=== PATIENT | female | born 1965 | race Caucasian/White ===

== ENCOUNTER → 2016-03-15 | Outpatient (REF) | payer BC, OTHER ==
[~2016-03-15] MED LIST: ASPI81TA45 OR; MAALOX PO; MYLANTA PO; PRIL40CA OR; VARE1TA OR
== END | disposition home or self-care (01) ==
LOC: M WUC 18:37
PROVIDERS: ATTEND Physician Assistant
DX: R30.0 Dysuria (principal)

== ENCOUNTER → 2016-03-21 | Outpatient (CLI) | payer BC, OTHER ==
--- NOTE | 2016-03-21 19:10 | REP ---
Clinical: Dyspnea . Comparison: 01/08/2016 . Technique: PA and lateral. Findings: The mediastinum and cardiac silhouette are normal. The lung thornton are clear and without acute consolidation, effusion, or pneumothorax. The skeletal structures are intact and normal. Impression: 1. No acute cardiopulmonary process. Signed by Eligio Cook MD 03/21/2016 07:02 P
== END | disposition home or self-care (01) ==
LOC: M WUC 18:17
PROVIDERS: ATTEND Physician Assistant
DX: R07.1 Chest pain on breathing (principal)

== ENCOUNTER → 2016-04-10 | Outpatient (CLI) | payer BC ==
[~2016-04-10] MED LIST changes: +ISOVUE-370 76% 100ML VIAL (Q9967) As Ordered ONE
--- NOTE | 2016-04-11 04:21 | REP ---
Clinical: Palpable mass. Technique: Real time perry scale and color evaluation using linear high frequency transducer. Findings: Directed ultrasound examination of the left anterior thigh overlying the palpable mass demonstrates an ovoid echogenic solid structure measuring 1.4 x 1.0 x 0.5 cm without vascularity. No associated fluid or further abnormality identified. Impression: Ovoid echogenic mass suggesting lipoma by ultrasound evaluation. Signed by Eligio Cook MD 04/11/2016 04:13 A
--- NOTE | 2016-04-11 04:58 | REP ---
Clinical: Follow-up pulmonary nodule. Technique: Axial contrast enhanced images from the thoracic inlet to the upper abdomen using 100 ml Isovue 370 intravenous contrast material. Comparison: Chest CT dated 09/05/2015, 03/21/2015. Abdominal CT dated 12/12/2014. Findings: A 4 mm noncalcified nodule identified in the periphery of the right lower lobe is again identified and unchanged as identified on lung bases of abdominal CT dated 12/12/2014. Finding likely represent small area of scarring and less likely active pathology. Remainder of lung thornton are relatively symmetric and well-aerated. No further consolidation nodule or mass lesion is appreciated. Mild bronchiectasis is suggested. No pleural effusion/reaction or pneumothorax. No significant hilar or mediastinal adenopathy. Mediastinum demonstrates normal heart/pericardium and thoracic aorta. Surrounding musculoskeletal structures are intact without focal osseous abnormality. Impression: 1. Stable 4 mm nodular density in the right lower lobe unchanged when compared to findings on abdominal CT dated 12/12/2014. Consider annual screening. 2. Mild chronic bronchiectasis. 3. No further or acute mediastinal or pleuroparenchymal process appreciated. Signed by Eligio Cook MD 04/11/2016 04:50 A
== END | disposition home or self-care (01) ==
LOC: M RAD 17:29
PROVIDERS: ATTEND Family Medicine
DX: R22.42 Localized swelling, mass and lump, left lower limb (principal); R91.1 Solitary pulmonary nodule; J47.9 Bronchiectasis, uncomplicated
CPT/HCPCS: 71260; 76882; Q9967

== ENCOUNTER → 2016-04-13 | Outpatient (REF) | payer BC ==
[~2016-04-13] MED LIST changes: -ISOVUE-370 76% 100ML VIAL (Q9967) As Ordered ONE
== END | disposition home or self-care (01) ==
LOC: M LAB REF 09:52
PROVIDERS: ATTEND Physician Assistant
DX: R30.0 Dysuria (principal)

== ENCOUNTER → 2016-04-15 | Outpatient (REF) | payer OTHER | END | disposition home or self-care (01) | LOC: M SFHCLERA 18:04 | PROVIDERS: ATTEND Nurse Practitioner Family | DX: R10.30 Lower abdominal pain, unspecified (principal) ==

== ENCOUNTER → 2016-04-17 | Outpatient (REF) | payer OTHER | END | disposition home or self-care (01) | LOC: M SFHCPLAZ 17:09 | PROVIDERS: ATTEND Family Medicine | DX: N39.0 Urinary tract infection, site not specified (principal) ==

== ENCOUNTER → 2016-04-28 | Outpatient (CLI) | payer BC, OTHER ==
[~2016-04-28] MED LIST changes: +ISOVUE-370 76% 100ML VIAL (Q9967) As Ordered ONE
--- NOTE | 2016-04-28 08:40 | REP ---
Clinical: Recurrent urinary tract infection. Technique: Axial precontrast, contrast enhanced, and delayed images of the abdomen and pelvis from the lung bases to the pubic symphysis using 100 ml Isovue 370 intravenous contrast material with coronal and sagittal re-formations and multi rotational MIP urogram reconstructions. Findings: Evaluation of the urinary tract system in all phases of enhancement demonstrates to the left and one right sub centimeter simple cysts. There is no evidence for nephroureterolithiasis, hydronephrosis perinephric stranding or mass lesion. Liver, spleen, pancreas, gallbladder, bilateral adrenal glands are normal. The enteric system is without obstruction or acute inflammatory process. Normal terminal ileum identified in the right lower quadrant. Pelvis demonstrates normal bladder and evidence for prior hysterectomy. 2 cm fat containing periumbilical hernia identified. No pelvic fluid or ascites. No intraperitoneal or retroperitoneal adenopathy. No mass lesion. Vasculature is normal. Musculoskeletal structures demonstrate degenerative changes to the lumbosacral spine. Impression: 1. Few bilateral subcentimeter renal cysts. Otherwise normal urinary tract system. 2. A 2 cm fat containing periumbilical hernia. Signed by Eligio Cook MD 04/28/2016 08:32 A
== END ==
LOC: M RAD 07:02
PROVIDERS: ATTEND Family Medicine
DX: N39.0 Urinary tract infection, site not specified (principal); N28.1 Cyst of kidney, acquired; K42.9 Umbilical hernia without obstruction or gangrene
CPT/HCPCS: 74178; Q9967

== ENCOUNTER → 2016-05-06 | Outpatient (REF) | payer OTHER ==
[~2016-05-06] MED LIST changes: -ISOVUE-370 76% 100ML VIAL (Q9967) As Ordered ONE
== END ==
LOC: M SFHCPLAZ 15:35
PROVIDERS: ATTEND Family Medicine
DX: N39.0 Urinary tract infection, site not specified (principal)

== ENCOUNTER → 2016-05-08 | Outpatient (CLI) | payer BC, OTHER ==
--- NOTE | 2016-05-08 17:21 | REP ---
PELVIC ULTRASOUND: Real-time sonographic evaluation of the pelvis is performed utilizing transabdominal and endovaginal technique. The bladder measures 13.2 x 8.0 x 12.1 cm. The patient has had a prior hysterectomy. No pelvic mass is seen. There is no free fluid. IMPRESSION: No evidence of mass or free fluid. The patient is status post hysterectomy. Signed by Bong Dobbs MD 05/09/2016 08:30 P
== END ==
LOC: M RAD 16:02
PROVIDERS: ATTEND Family Medicine
DX: Z90.710 Acquired absence of both cervix and uterus (principal)

== ENCOUNTER → 2016-05-16 | Outpatient (REF) | payer OTHER ==
[2016-05-19 00:10] LABS: Candida species Negative (Negative); Gardnerella vaginalis Negative (Negative); Trichamonas vaginalis Negative (Negative)
== END ==
LOC: M SMT 16:47
PROVIDERS: ATTEND Specialist
DX: N39.0 Urinary tract infection, site not specified (principal); N76.0 Acute vaginitis

== ENCOUNTER → 2016-06-06 | Outpatient (REF) | payer OTHER | LOC: M LAB REF 10:40 | PROVIDERS: ATTEND Physician Assistant | DX: R30.0 Dysuria (principal) ==

== ENCOUNTER → 2016-06-08 | Outpatient (CLI) | payer OTHER ==
[2016-06-08 18:24] LABS: ALBUMIN 3.6 GM/DL (3.2-5.2); ALBUMIN/GLOBULIN RATIO 1.29 (1.00-1.93); ALKALINE PHOSPHATASE 73 U/L (45-117); ALT/SGPT 37 U/L (12-78); ANION GAP 5 MEQ/L (8-16); AST/SGOT 13 U/L (15-37); BILIRUBIN,TOTAL 0.3 MG/DL (0.2-1.0); BLOOD UREA NITROGEN 13 MG/DL (7-18); CALCIUM LEVEL 8.7 MG/DL (8.5-10.1); CARBON DIOXIDE LEVEL 29 MEQ/L (21-32); CHLORIDE LEVEL 106 MEQ/L (98-107); CHOLESTEROL LEVEL 199 MG/DL (<200); CREATININE FOR GFR 0.93 MG/DL (0.55-1.02); GLOMERULAR FILTRATION RATE > 60.0 (>51); GLUCOSE, FASTING 85 MG/DL (70-105); MAGNESIUM LEVEL 1.9 MG/DL (1.8-2.4); POTASSIUM SERUM 4.3 MEQ/L (3.5-5.1); SODIUM LEVEL 140 MEQ/L (136-145); TOTAL PROTEIN 6.4 GM/DL (6.4-8.2); TRIGLYCERIDES LEVEL 114 MG/DL (<150)
== END ==
LOC: M WUC 11:20
PROVIDERS: ATTEND Family Medicine
DX: R00.2 Palpitations (principal); I10 Essential (primary) hypertension

== ENCOUNTER → 2016-09-21 | Outpatient (CLI) | payer OTHER ==
[2016-09-21 17:49] LABS: ALBUMIN 3.8 GM/DL (3.2-5.2); ALBUMIN/GLOBULIN RATIO 1.23 (1.00-1.93); ALKALINE PHOSPHATASE 84 U/L (45-117); ALT/SGPT 28 U/L (12-78); ANION GAP 5 MEQ/L (8-16); AST/SGOT 12 U/L (15-37); BILIRUBIN,TOTAL 0.4 MG/DL (0.2-1.0); BLOOD UREA NITROGEN 12 MG/DL (7-18); CALCIUM LEVEL 9.2 MG/DL (8.5-10.1); CARBON DIOXIDE LEVEL 29 MEQ/L (21-32); CHLORIDE LEVEL 106 MEQ/L (98-107); CREATININE FOR GFR 0.85 MG/DL (0.55-1.02); GLOMERULAR FILTRATION RATE > 60.0 (>51); GLUCOSE, FASTING 90 MG/DL (70-105); POTASSIUM SERUM 4.6 MEQ/L (3.5-5.1); SODIUM LEVEL 140 MEQ/L (136-145); TOTAL PROTEIN 6.9 GM/DL (6.4-8.2)
== END ==
LOC: M WUC 08:35
PROVIDERS: ATTEND Family Medicine
DX: E55.9 Vitamin D deficiency, unspecified (principal); R73.01 Impaired fasting glucose

== ENCOUNTER → 2016-09-23 | Outpatient (REF) | payer OTHER | LOC: M SFHCPLAZ 15:34 | PROVIDERS: ATTEND Family Medicine | DX: J34.0 Abscess, furuncle and carbuncle of nose (principal) ==

== ENCOUNTER → 2016-10-06 | Outpatient (REF) | payer OTHER | LOC: M SFHCPLAZ 11:37 | PROVIDERS: ATTEND Family Medicine | DX: J32.9 Chronic sinusitis, unspecified (principal) ==

== ENCOUNTER → 2016-11-15 | Outpatient (CLI) | payer BC, OTHER ==
--- NOTE | 2016-11-15 18:10 | REP ---
Clinical: Acute pain . Technique: AP, lateral, bilateral oblique views right ankle. Comparison: 03/27/2008 . Findings: No acute fracture or dislocation. Skeletal structures and joint spaces are intact and normal. Ankle mortise appears stable. No subcutaneous emphysema or radiodense foreign body. Impression: Normal right ankle radiograph series. Signed by Eligio Cook MD 11/15/2016 06:01 P
== END ==
LOC: M LRY 17:45
PROVIDERS: ATTEND Nurse Practitioner Family
DX: M25.571 Pain in right ankle and joints of right foot (principal)

== ENCOUNTER → 2016-12-13 | Outpatient (REF) | payer OTHER ==
[2016-12-13 14:01] LABS: ALBUMIN 3.6 GM/DL (3.2-5.2); ALBUMIN/GLOBULIN RATIO 1.29 (1.00-1.93); ALKALINE PHOSPHATASE 77 U/L (45-117); ALT/SGPT 46 U/L (12-78); ANION GAP 6 MEQ/L (8-16); AST/SGOT 18 U/L (15-37); BILIRUBIN,TOTAL 0.3 MG/DL (0.2-1.0); BLOOD UREA NITROGEN 12 MG/DL (7-18); CALCIUM LEVEL 8.7 MG/DL (8.5-10.1); CARBON DIOXIDE LEVEL 29 MEQ/L (21-32); CHLORIDE LEVEL 106 MEQ/L (98-107); CHOLESTEROL LEVEL 192 MG/DL (<200); CREATININE FOR GFR 0.82 MG/DL (0.55-1.02); FREE T4 1.04 NG/DL (0.76-1.46); GLOMERULAR FILTRATION RATE > 60.0 (>51); GLUCOSE, FASTING 87 MG/DL (70-105); POTASSIUM SERUM 4.7 MEQ/L (3.5-5.1); SODIUM LEVEL 141 MEQ/L (136-145); TOTAL PROTEIN 6.4 GM/DL (6.4-8.2); TRIGLYCERIDES LEVEL 83 MG/DL (<150)
== END ==
LOC: M LAB REF 12:26 → M LABWUC 12:26
PROVIDERS: ATTEND Family Medicine
DX: I10 Essential (primary) hypertension (principal); R73.01 Impaired fasting glucose

== ENCOUNTER → 2017-01-03 | Outpatient (REF) | payer OTHER | LOC: M LAB REF 09:29 | PROVIDERS: ATTEND Urology | DX: R31.29 Other microscopic hematuria (principal) ==

== ENCOUNTER → 2017-01-23 | Outpatient (CLI) | payer BC, OTHER ==
--- NOTE | 2017-01-23 16:40 | REP ---
MAXILLOFACIAL CT WITHOUT CONTRAST: HISTORY: Chronic maxillary sinusitis. Mucosal thickening is present in the left maxillary sinus. There is almost complete opacification of the left maxillary sinus. Minimal mucosal thickening is present in the left ethmoid sinus. The remaining sinuses are clear. Mucosal thickening involves the left ostiomeatal unit. The right ostiomeatal unit is patent. The middle and inferior nasal turbinates are partially paradoxical. There is minimal deviation of the nasal septum to the right. A spur is present arising from the right side of the nasal septum. The spur abuts the right middle and inferior nasal turbinates. The cribriform plate, medial marroquin of the orbits and optic canals are intact. The carotid canals form a segment of the posterolateral marroquin of the sphenoid sinus. The left sphenoid sinus septum inserts into the left internal carotid canal wall. IMPRESSION: Sinus mucosal thickening as described above. Signed by Aris Grimes MD 01/23/2017 04:45 P
== END ==
LOC: M RAD 15:10
PROVIDERS: ATTEND Otolaryngology
DX: J34.89 Other specified disorders of nose and nasal sinuses (principal)

== ENCOUNTER → 2017-02-13 | Outpatient (REF) | payer OTHER ==
[2017-02-13 18:08] LABS: BASO # 0.1 10^3/uL (0.0-0.2); EOS # 0.3 10^3/uL (0.0-0.50); EOS % 4.1 % (0.0-3.0); IMMATURE GRANULOCYTE % 0.1 % (0-0); LYMPH # 3.2 10^3/uL (1.5-4.5); LYMPH % 38.7 % (24.0-44.0); MEAN CORPUSCULAR HEMOGLOBIN 30.1 pg (27.0-33.0); MEAN CORPUSCULAR HGB CONC 33.5 g/dl (32.0-36.5); MEAN CORPUSCULAR VOLUME 89.8 fl (80.0-96.0); MONO # 0.6 10^3/uL (0.0-0.8); MONO % 7.7 % (0.0-5.0); NEUTROPHILS % 48.4 % (36.0-66.0); PLATELET COUNT, AUTOMATED 312 10^3/uL (150-450); RED CELL DISTRIBUTION WIDTH 13.4 % (11.5-14.5); WHITE BLOOD COUNT 8.3 10^3/uL (4.0-10.0)
[2017-02-13 18:27] LABS: ALBUMIN 4.2 GM/DL (3.2-5.2); ALBUMIN/GLOBULIN RATIO 1.24 (1.00-1.93); ALKALINE PHOSPHATASE 88 U/L (45-117); ALT/SGPT 34 U/L (12-78); ANION GAP 7 MEQ/L (8-16); AST/SGOT 15 U/L (7-37); BILIRUBIN,TOTAL 0.3 MG/DL (0.2-1.0); BLOOD UREA NITROGEN 8 MG/DL (7-18); CALCIUM LEVEL 9.5 MG/DL (8.5-10.1); CARBON DIOXIDE LEVEL 29 MEQ/L (21-32); CHLORIDE LEVEL 106 MEQ/L (98-107); CREATININE FOR GFR 0.89 MG/DL (0.55-1.02); GLOMERULAR FILTRATION RATE > 60.0 (>51); GLUCOSE, FASTING 96 MG/DL (70-105); POTASSIUM SERUM 4.2 MEQ/L (3.5-5.1); SODIUM LEVEL 142 MEQ/L (136-145); TOTAL PROTEIN 7.6 GM/DL (6.4-8.2)
[2017-02-13 18:32] LABS: INR 0.93
== END ==
LOC: M SFHCPLAZ 16:18
PROVIDERS: ATTEND Family Medicine
DX: I10 Essential (primary) hypertension (principal)

== ENCOUNTER → 2017-04-17 | Outpatient (CLI) | payer BC, OTHER ==
[~2017-04-17] MED LIST changes: -ASPI81TA45 OR; +ISOVUE-370 76% 100ML VIAL (Q9967) As Ordered; -MAALOX PO; -MYLANTA PO; -PRIL40CA OR; -VARE1TA OR
== END ==
LOC: M RAD 17:15
DX: R05 Cough (principal); J47.1 Bronchiectasis with (acute) exacerbation; R91.1 Solitary pulmonary nodule

== ENCOUNTER → 2017-05-05 | Outpatient (REF) | payer OTHER | LOC: M SFHCLERA 11:43 | DX: R35.0 Frequency of micturition (principal) ==

== ENCOUNTER → 2017-05-22 | Outpatient (REF) | payer OTHER ==
[2017-05-22 17:13] LABS: BASO # 0.1 10^3/uL (0.0-0.2); BASO % 0.9 % (0.0-1.0); EOS # 0.4 10^3/uL (0.0-0.50); EOS % 4.5 % (0.0-3.0); HEMATOCRIT 41.7 % (36.0-47.0); HEMOGLOBIN 14.1 g/dl (12.0-16.0); IMMATURE GRANULOCYTE % 0.4 % (0-3.0); LYMPH # 3.4 10^3/uL (1.5-4.5); MEAN CORPUSCULAR HEMOGLOBIN 30.6 pg (27.0-33.0); MEAN CORPUSCULAR HGB CONC 33.8 g/dl (32.0-36.5); MEAN CORPUSCULAR VOLUME 90.5 fl (80.0-96.0); MONO # 0.7 10^3/uL (0.0-0.8); MONO % 8.1 % (0.0-5.0); NEUTROPHILS # 3.6 10^3/uL (1.8-7.7); NEUTROPHILS % 44.1 % (36.0-66.0); PLATELET COUNT, AUTOMATED 283 10^3/uL (150-450); RED BLOOD COUNT 4.61 10^6/uL (4.00-5.40); RED CELL DISTRIBUTION WIDTH 13.4 % (11.5-14.5); WHITE BLOOD COUNT 8.2 10^3/uL (4.0-10.0)
[2017-05-22 17:21] LABS: D-DIMER QUANT 273.9 ng/ml (<500)
[2017-05-22 17:26] LABS: ALBUMIN 3.9 GM/DL (3.2-5.2); ALKALINE PHOSPHATASE 92 U/L (45-117); ALT/SGPT 31 U/L (12-78); ANION GAP 7 MEQ/L (8-16); AST/SGOT 15 U/L (7-37); BILIRUBIN,TOTAL 0.2 MG/DL (0.2-1.0); BLOOD UREA NITROGEN 10 MG/DL (7-18); CALCIUM LEVEL 8.8 MG/DL (8.5-10.1); CARBON DIOXIDE LEVEL 27 MEQ/L (21-32); CHLORIDE LEVEL 106 MEQ/L (98-107); CREATININE FOR GFR 0.77 MG/DL (0.55-1.30); GLOMERULAR FILTRATION RATE > 60.0 (>51); GLUCOSE, FASTING 80 MG/DL (70-100); LIPASE 189 U/L (73-393); POTASSIUM SERUM 4.6 MEQ/L (3.5-5.1); SODIUM LEVEL 140 MEQ/L (136-145); TOTAL PROTEIN 6.9 GM/DL (6.4-8.2); TROPONIN I < 0.02 NG/ML (< 0.10)
[2017-05-22 18:49] LABS: APPEARANCE, URINE MANUAL CLEAR (CLEAR); BILIRUBIN, URINE MANUAL NEGATIVE (NEGATIVE); BLOOD URINE MANUAL TRACE (NEGATIVE); COLOR, URINE MANUAL COLORLESS (YELLOW); GLUCOSE, URINE (UA) MANUAL NEGATIVE (NEGATIVE); KETONE, URINE MANUAL NEGATIVE (NEGATIVE); LEUKOCYTE ESTERASE, URINE MAN NEGATIVE (NEGATIVE); MICROSCOPIC INDICATED? MAN YES (NO); NITRITE, URINE MANUAL NEGATIVE (NEGATIVE); PROTEIN, URINE MANUAL NEGATIVE (NEGATIVE); UROBILINOGEN, URINE MANUAL NORMAL (NORMAL)
[2017-05-22 18:51] LABS: BACTERIA, URINE SMALL AMOUNT; HYALINE CAST, URINE NONE SEEN /lpf (0-1); MICROSCOPIC EXAM PERFORMED; RBC, URINE 0-1 /hpf (0-3); SQUAMOUS EPITHELIAL CELL URINE SMALL AMOUNT /hpf (SMALL AMT)
== END ==
LOC: M SFHCPLAZ 15:59
DX: R10.84 Generalized abdominal pain (principal); R07.9 Chest pain, unspecified; F17.200 Nicotine dependence, unspecified, uncomplicated

== ENCOUNTER → 2017-05-25 | Outpatient (CLI) | payer BC | LOC: M WHC 07:39 | DX: R10.84 Generalized abdominal pain (principal) | CPT/HCPCS: 76705 ==

== ENCOUNTER → 2017-06-02 | Outpatient (CLI) | payer BC, OTHER | LOC: M RAD 07:26 | DX: R10.11 Right upper quadrant pain (principal) | CPT/HCPCS: J2805 ==

== ENCOUNTER → 2017-06-09 | Outpatient (REF) | payer OTHER | LOC: M LAB REF 15:33 | DX: R10.11 Right upper quadrant pain (principal); Z86.010 Personal history of colon polyps; K20.9 Esophagitis, unspecified; K21.9 Gastro-esophageal reflux disease without esophagitis; K82.8 Other specified diseases of gallbladder | CPT/HCPCS: 87493 ==

== ENCOUNTER → 2017-06-19 | Outpatient (CLI) | payer OTHER ==
[2017-06-19 19:38] LABS: BASO # 0.1 10^3/uL (0.0-0.2); BASO % 0.7 % (0.0-1.0); EOS # 0.3 10^3/uL (0.0-0.50); EOS % 3.4 % (0.0-3.0); HEMATOCRIT 41.9 % (36.0-47.0); HEMOGLOBIN 13.9 g/dl (12.0-15.5); IMMATURE GRANULOCYTE % 0.2 % (0-3.0); MEAN CORPUSCULAR HEMOGLOBIN 30.2 pg (27.0-33.0); MEAN CORPUSCULAR HGB CONC 33.2 g/dl (32.0-36.5); MEAN CORPUSCULAR VOLUME 91.1 fl (80.0-96.0); MONO # 0.6 10^3/uL (0.0-0.8); MONO % 7.7 % (0.0-5.0); NEUTROPHILS # 4.2 10^3/uL (1.8-7.7); PLATELET COUNT, AUTOMATED 334 10^3/uL (150-450); RED CELL DISTRIBUTION WIDTH 13.4 % (11.5-14.5); WHITE BLOOD COUNT 8.2 10^3/uL (4.0-10.0)
[2017-06-19 20:08] LABS: ALBUMIN/GLOBULIN RATIO 1.25 (1.00-1.93); ALKALINE PHOSPHATASE 88 U/L (45-117); ALT/SGPT 19 U/L (12-78); ANION GAP 3 MEQ/L (8-16); AST/SGOT 11 U/L (7-37); BILIRUBIN,TOTAL 0.3 MG/DL (0.2-1.0); BLOOD UREA NITROGEN 7 MG/DL (7-18); C REACTIVE PROTEIN QUANTITATIV < 0.30 MG/DL (0.00-0.30); CALCIUM LEVEL 9.3 MG/DL (8.5-10.1); CARBON DIOXIDE LEVEL 30 MEQ/L (21-32); CHLORIDE LEVEL 107 MEQ/L (98-107); CREATININE FOR GFR 0.89 MG/DL (0.55-1.30); GLOMERULAR FILTRATION RATE > 60.0 (>51); GLUCOSE, FASTING 93 MG/DL (70-100); LIPASE 138 U/L (73-393); POTASSIUM SERUM 4.6 MEQ/L (3.5-5.1); SODIUM LEVEL 140 MEQ/L (136-145); TOTAL PROTEIN 7.2 GM/DL (6.4-8.2)
== END ==
LOC: M WUC 17:51
DX: R10.11 Right upper quadrant pain (principal)

== ENCOUNTER → 2017-06-29 | Outpatient (CLI) | payer BC, OTHER | LOC: M WUC 18:50 | DX: R10.11 Right upper quadrant pain (principal) ==

== ENCOUNTER → 2017-07-08 | Outpatient (REF) | payer OTHER | LOC: M LAB REF 09:18 | DX: R10.11 Right upper quadrant pain (principal); K82.8 Other specified diseases of gallbladder; R19.7 Diarrhea, unspecified | CPT/HCPCS: 83630 ==

== ENCOUNTER → 2017-07-13 | Outpatient (CLI) | payer BC, OTHER | LOC: M RAD 06:41 | DX: R10.11 Right upper quadrant pain (principal); K82.8 Other specified diseases of gallbladder; R19.7 Diarrhea, unspecified; N28.1 Cyst of kidney, acquired | CPT/HCPCS: 76705 ==

== ENCOUNTER → 2017-08-14 | Outpatient (REF) | payer OTHER ==
[2017-08-14 17:24] LABS: BASO # 0.1 10^3/uL (0.0-0.2); BASO % 0.9 % (0.0-1.0); EOS # 0.4 10^3/uL (0.0-0.50); EOS % 4.3 % (0.0-3.0); HEMATOCRIT 42.3 % (36.0-47.0); IMMATURE GRANULOCYTE % 0.4 % (0-3.0); LYMPH # 3.4 10^3/uL (1.5-4.5); LYMPH % 37.9 % (24.0-44.0); MEAN CORPUSCULAR HEMOGLOBIN 30.5 pg (27.0-33.0); MEAN CORPUSCULAR HGB CONC 33.1 g/dl (32.0-36.5); MEAN CORPUSCULAR VOLUME 92.2 fl (80.0-96.0); MONO # 0.7 10^3/uL (0.0-0.8); MONO % 7.3 % (0.0-5.0); NEUTROPHILS # 4.4 10^3/uL (1.8-7.7); NEUTROPHILS % 49.2 % (36.0-66.0); PLATELET COUNT, AUTOMATED 311 10^3/uL (150-450); RED BLOOD COUNT 4.59 10^6/uL (4.00-5.40); RED CELL DISTRIBUTION WIDTH 13.5 % (11.5-14.5)
[2017-08-14 17:40] LABS: INR 0.86; PROTHROMBIN TIME 11.8 SECONDS (12.4-14.5)
[2017-08-14 17:41] LABS: PARTIAL THROMBOPLASTIN TIME 31.3 SECONDS (26.8-37.9)
[2017-08-14 18:01] LABS: ALBUMIN/GLOBULIN RATIO 1.29 (1.00-1.93); ALKALINE PHOSPHATASE 103 U/L (45-117); ALT/SGPT 36 U/L (12-78); ANION GAP 6 MEQ/L (8-16); AST/SGOT 19 U/L (7-37); BILIRUBIN,TOTAL 0.3 MG/DL (0.2-1.0); BLOOD UREA NITROGEN 9 MG/DL (7-18); C REACTIVE PROTEIN QUANTITATIV < 0.30 MG/DL (0.00-0.30); CARBON DIOXIDE LEVEL 28 MEQ/L (21-32); CHLORIDE LEVEL 107 MEQ/L (98-107); CREATININE FOR GFR 0.85 MG/DL (0.55-1.30); GLOMERULAR FILTRATION RATE > 60.0 (>51); GLUCOSE, FASTING 82 MG/DL (70-100); POTASSIUM SERUM 4.2 MEQ/L (3.5-5.1); SODIUM LEVEL 141 MEQ/L (136-145); TOTAL PROTEIN 7.1 GM/DL (6.4-8.2)
[2017-08-14 18:34] LABS: CA19-9 TUMOR MARKER,CARBOHYDRA < 1.2 U/ML (<35.0)
== END ==
LOC: M SFHCPLAZ 16:14
DX: R10.11 Right upper quadrant pain (principal); I10 Essential (primary) hypertension

== ENCOUNTER → 2017-08-26 | Outpatient (CLI) | payer BC, OTHER ==
[~2017-08-26] MED LIST changes: -ISOVUE-370 76% 100ML VIAL (Q9967) As Ordered; +PROHANCE 279.3MG/ML 15ML VIAL (A9576) As Ordered; +PROHANCE 279.3MG/ML 5ML VIAL (A9576) As Ordered
== END ==
LOC: M RAD 17:54
DX: M89.9 Disorder of bone, unspecified (principal)
CPT/HCPCS: A9576

== ENCOUNTER → 2017-10-17 | Outpatient (REF) | payer BC, OTHER | LOC: M LAB REF 11:12 | DX: R19.7 Diarrhea, unspecified (principal) | CPT/HCPCS: 87507 ==

== ENCOUNTER → 2017-10-31 | Outpatient (CLI) | payer BC, OTHER | LOC: M RAD 09:19 | DX: M47.816 Spondylosis without myelopathy or radiculopathy, lumbar region (principal) ==

== ENCOUNTER → 2017-11-20 | Outpatient (CLI) | payer BC, OTHER ==
[~2017-11-20] MED LIST changes: +GASTROGRAFIN SOLUTION 30ML (Q9963) As Ordered; +ISOVUE-370 76% 100ML VIAL (Q9967) As Ordered; -PROHANCE 279.3MG/ML 15ML VIAL (A9576) As Ordered; -PROHANCE 279.3MG/ML 5ML VIAL (A9576) As Ordered
== END ==
LOC: M RAD 14:32
DX: R10.11 Right upper quadrant pain (principal)
CPT/HCPCS: Q9963

== ENCOUNTER → 2017-11-20 | Outpatient (CLI) | payer BC, OTHER ==
[2017-11-20 15:10] LABS: HEMATOCRIT 40.7 % (36.0-47.0); HEMOGLOBIN 13.8 g/dl (12.0-15.5); MEAN CORPUSCULAR HEMOGLOBIN 30.9 pg (27.0-33.0); MEAN CORPUSCULAR HGB CONC 33.9 g/dl (32.0-36.5); MEAN CORPUSCULAR VOLUME 91.3 fl (80.0-96.0); PLATELET COUNT, AUTOMATED 278 10^3/uL (150-450); RED BLOOD COUNT 4.46 10^6/uL (4.00-5.40); RED CELL DISTRIBUTION WIDTH 13.2 % (11.5-14.5)
[2017-11-20 15:33] LABS: ERYTHROCYTE SEDIMENTATION RATE 11 mm/hr (0-30)
[2017-11-20 15:45] LABS: ALBUMIN/GLOBULIN RATIO 1.33 (1.00-1.93); ALKALINE PHOSPHATASE 82 U/L (45-117); ALT/SGPT 29 U/L (12-78); AMYLASE 57 U/L (25-115); ANION GAP 7 MEQ/L (8-16); AST/SGOT 13 U/L (7-37); BILIRUBIN,TOTAL 0.2 MG/DL (0.2-1.0); BLOOD UREA NITROGEN 8 MG/DL (7-18); C REACTIVE PROTEIN QUANTITATIV < 0.30 MG/DL (0.00-0.30); CALCIUM LEVEL 9.2 MG/DL (8.5-10.1); CARBON DIOXIDE LEVEL 26 MEQ/L (21-32); CHLORIDE LEVEL 108 MEQ/L (98-107); CREATININE FOR GFR 0.83 MG/DL (0.55-1.30); GLOMERULAR FILTRATION RATE > 60.0 (>51); GLUCOSE, FASTING 83 MG/DL (70-100); LIPASE 197 U/L (73-393); POTASSIUM SERUM 4.4 MEQ/L (3.5-5.1); SODIUM LEVEL 141 MEQ/L (136-145)
== END ==
LOC: M LAB 14:36
DX: R19.7 Diarrhea, unspecified (principal); Z98.890 Other specified postprocedural states; R16.0 Hepatomegaly, not elsewhere classified; K44.9 Diaphragmatic hernia without obstruction or gangrene
CPT/HCPCS: 74177

== ENCOUNTER → 2017-12-22 | Outpatient (CLI) | payer BC, OTHER ==
[2017-12-22 20:01] LABS: HEMATOCRIT 40.4 % (36.0-47.0); HEMOGLOBIN 13.4 g/dl (12.0-15.5); MEAN CORPUSCULAR HEMOGLOBIN 30.9 pg (27.0-33.0); MEAN CORPUSCULAR HGB CONC 33.2 g/dl (32.0-36.5); MEAN CORPUSCULAR VOLUME 93.3 fl (80.0-96.0); PLATELET COUNT, AUTOMATED 286 10^3/uL (150-450); RED BLOOD COUNT 4.33 10^6/uL (4.00-5.40); RED CELL DISTRIBUTION WIDTH 13.4 % (11.5-14.5); WHITE BLOOD COUNT 8.9 10^3/uL (4.0-10.0)
[2017-12-22 20:16] LABS: ALBUMIN 3.9 GM/DL (3.2-5.2); ALBUMIN/GLOBULIN RATIO 1.44 (1.00-1.93); ALKALINE PHOSPHATASE 80 U/L (45-117); ALT/SGPT 35 U/L (12-78); ANION GAP 5 MEQ/L (8-16); AST/SGOT 16 U/L (7-37); BILIRUBIN,TOTAL 0.2 MG/DL (0.2-1.0); BLOOD UREA NITROGEN 10 MG/DL (7-18); C REACTIVE PROTEIN QUANTITATIV < 0.30 MG/DL (0.00-0.30); CALCIUM LEVEL 8.8 MG/DL (8.5-10.1); CARBON DIOXIDE LEVEL 29 MEQ/L (21-32); CHLORIDE LEVEL 108 MEQ/L (98-107); GLOMERULAR FILTRATION RATE > 60.0 (>51); GLUCOSE, FASTING 78 MG/DL (70-100); LIPASE 221 U/L (73-393); POTASSIUM SERUM 4.4 MEQ/L (3.5-5.1); SODIUM LEVEL 142 MEQ/L (136-145); TOTAL PROTEIN 6.6 GM/DL (6.4-8.2)
== END ==
LOC: M WUC 16:28
DX: R10.11 Right upper quadrant pain (principal); R19.7 Diarrhea, unspecified
CPT/HCPCS: 83690

== ENCOUNTER → 2017-12-24 | Outpatient (CLI) | payer BC, OTHER | LOC: M RAD 06:07 | DX: N28.1 Cyst of kidney, acquired (principal); R10.11 Right upper quadrant pain; R19.7 Diarrhea, unspecified | CPT/HCPCS: 76705 ==

== ENCOUNTER → 2018-01-03 | Outpatient (CLI) | payer BC, OTHER ==
[2018-01-06 08:07] LABS: FATS NEUTRAL Normal (.); FATS TOTAL Normal (.)
[2018-01-07 00:06] LABS: GASTRIN 14 pg/mL (0-115)
== END ==
LOC: M LAB 12:12
DX: K44.9 Diaphragmatic hernia without obstruction or gangrene (principal); K21.9 Gastro-esophageal reflux disease without esophagitis; R19.7 Diarrhea, unspecified
CPT/HCPCS: 82941

== ENCOUNTER → 2018-02-04 | Outpatient (CLI) | payer BC, OTHER ==
[~2018-02-04] MED LIST changes: +E-Z-GAS II EFFERVESCENT PACKET (SODIUM BICARB./CITRIC ACID/SIMETHICONE) As Ordered; +E-Z-HD 98% w/w 340GM SUSP BTL As Ordered; +E-Z-PAQUE 96% w/w SUSP 176GM BTL As Ordered; -GASTROGRAFIN SOLUTION 30ML (Q9963) As Ordered; -ISOVUE-370 76% 100ML VIAL (Q9967) As Ordered
== END ==
LOC: M RAD 09:38
DX: K44.9 Diaphragmatic hernia without obstruction or gangrene (principal)
CPT/HCPCS: 74241

== ENCOUNTER → 2018-02-06 | Outpatient (CLI) | payer BC, OTHER ==
[2018-02-06 17:25] LABS: ALBUMIN/GLOBULIN RATIO 1.38 (1.00-1.93); ALKALINE PHOSPHATASE 84 U/L (45-117); ALT/SGPT 41 U/L (12-78); AST/SGOT 19 U/L (7-37); BILIRUBIN,DIRECT < 0.1 MG/DL (0.0-0.2); BILIRUBIN,TOTAL 0.3 MG/DL (0.2-1.0); TOTAL PROTEIN 6.9 GM/DL (6.4-8.2)
== END ==
LOC: M WUC 10:31
DX: R19.7 Diarrhea, unspecified (principal); R10.30 Lower abdominal pain, unspecified
CPT/HCPCS: 80076

== ENCOUNTER → 2018-02-06 | Outpatient (CLI) | payer BC, OTHER | LOC: M LAB 10:56 | DX: R19.7 Diarrhea, unspecified (principal); R10.30 Lower abdominal pain, unspecified | CPT/HCPCS: 84311 ==

== ENCOUNTER → 2018-02-13 | Outpatient (REF) | payer BC, OTHER | LOC: M LAB REF 09:25 | DX: R19.7 Diarrhea, unspecified (principal); R10.30 Lower abdominal pain, unspecified | CPT/HCPCS: 84311 ==

== ENCOUNTER → 2018-02-26 | Outpatient (CLI) | payer BC, OTHER ==
[~2018-02-26] MED LIST changes: +ALBU83IN NEB; +ASPI81TA45 OR; -E-Z-GAS II EFFERVESCENT PACKET (SODIUM BICARB./CITRIC ACID/SIMETHICONE) As Ordered; -E-Z-HD 98% w/w 340GM SUSP BTL As Ordered; -E-Z-PAQUE 96% w/w SUSP 176GM BTL As Ordered; +LOSA25TA14 PO; +MAALOX PO; +MYLANTA PO; +PRIL40CA OR; +PROAAER10 INH; +VARE1TA OR; +VITA10002 PO; +VITA500T PO; +WELL200T PO
--- NOTE | 2018-02-26 10:43 | REP ---
Hepatobiliary scan and gallbladder ejection fraction: History: Abdomen pain. Diarrhea. Comparison study July 13, 2017. Technique: 6.5 mCi of technetium-99m mebrofenin was injected and sequential anterior images are acquired. 65 minutes after the mebrofenin injection, the patient consumed 8 ounces Ensure and an additional 60 minutes of imaging was acquired. Regions of interest are plotted around the gallbladder. Findings: The initial hepatocellular parenchymal uptake phase is normal and homogeneous. Intra- and extra-hepatic bile ducts and duodenum are labeled by the 10 -minute image. The gallbladder is first labeled on the 25 minute image. There is normal washout from the liver parenchyma into the gallbladder and small intestine on subsequent images. The gallbladder ejection fraction is 52 %. Values greater than 35 % are considered normal with this technique. Impression: Normal hepatobiliary scan and normal gallbladder ejection fraction. Electronically Signed by Harshal Dumont MD 02/26/2018 10:35 A
== END ==
LOC: M RAD 07:46
PROVIDERS: ATTEND Internal Medicine Gastroenterology
DX: R10.9 Unspecified abdominal pain (principal); R19.7 Diarrhea, unspecified
CPT/HCPCS: 78227; A9537; J2805

== ENCOUNTER → 2018-03-12 | Outpatient (CLI) | payer OTHER, BC ==
[2018-03-12 15:48] LABS: BASO # 0.1 10^3/uL (0.0-0.2); EOS # 0.3 10^3/uL (0.0-0.50); EOS % 3.9 % (0.0-3.0); HEMATOCRIT 41.7 % (36.0-47.0); HEMOGLOBIN 13.9 g/dl (12.0-15.5); LYMPH # 3.2 10^3/uL (1.5-4.5); LYMPH % 40.1 % (24.0-44.0); MEAN CORPUSCULAR HEMOGLOBIN 30.3 pg (27.0-33.0); MEAN CORPUSCULAR HGB CONC 33.3 g/dl (32.0-36.5); MONO # 0.6 10^3/uL (0.0-0.8); MONO % 7.6 % (0.0-5.0); NEUTROPHILS # 3.8 10^3/uL (1.8-7.7); NEUTROPHILS % 47.1 % (36.0-66.0); PLATELET COUNT, AUTOMATED 284 10^3/uL (150-450); RED BLOOD COUNT 4.58 10^6/uL (4.00-5.40); WHITE BLOOD COUNT 7.9 10^3/uL (4.0-10.0)
[2018-03-12 15:53] LABS: ALBUMIN 3.8 GM/DL (3.2-5.2); ALT/SGPT 61 U/L (12-78); BILIRUBIN,TOTAL 0.4 MG/DL (0.2-1.0); BLOOD UREA NITROGEN 11 MG/DL (7-18); CALCIUM LEVEL 8.9 MG/DL (8.5-10.1); CARBON DIOXIDE LEVEL 29 MEQ/L (21-32); CHLORIDE LEVEL 104 MEQ/L (98-107); CREATININE FOR GFR 0.86 MG/DL (0.55-1.30); GLOMERULAR FILTRATION RATE > 60.0 (>51); GLUCOSE, FASTING 76 MG/DL (70-100); MAGNESIUM LEVEL 2.2 MG/DL (1.8-2.4); POTASSIUM SERUM 4.5 MEQ/L (3.5-5.1); SODIUM LEVEL 140 MEQ/L (136-145); TOTAL PROTEIN 6.6 GM/DL (6.4-8.2)
[2018-03-12 16:01] LABS: PTH INTACT 70.9 PG/ML (18.5-88.0); TOTAL 25(OH) VITAMIN D 22.2 NG/ML (30.0-100.0)
[2018-03-12 16:37] LABS: HEMOGLOBIN A1c 5.7 %
== END ==
LOC: M WUC 12:57
PROVIDERS: ATTEND Family Medicine
DX: I10 Essential (primary) hypertension (principal); E55.9 Vitamin D deficiency, unspecified; R73.01 Impaired fasting glucose

== ENCOUNTER → 2018-04-02 | Outpatient (CLI) | payer BC, OTHER ==
--- NOTE | 2018-04-02 10:01 | REP ---
LEFT SHOULDER, TWO VIEWS: HISTORY: Contusion. There is no acute fracture or dislocation. The joint spaces are normal in appearance. IMPRESSION: There is no acute fracture or dislocation. Electronically Signed by Aris Grimes MD 04/02/2018 10:11 A
--- NOTE | 2018-04-02 10:02 | REP ---
LEFT CLAVICLE, TWO VIEWS: HISTORY: Contusion. There is no acute fracture or dislocation. The joint spaces are normal in appearance. IMPRESSION: There is no acute fracture or dislocation. Electronically Signed by Aris Grimes MD 04/02/2018 10:02 A
--- NOTE | 2018-04-02 10:03 | REP ---
LEFT ELBOW, FOUR VIEWS: HISTORY: Contusion. There is no acute fracture or dislocation. The joint space is normal in appearance. IMPRESSION: There is no acute fracture or dislocation. Electronically Signed by Aris Grimes MD 04/02/2018 10:12 A
--- NOTE | 2018-04-02 10:03 | REP ---
LEFT HUMOROUS TWO VIEWS: HISTORY: Contusion. There is no acute fracture or dislocation. The joint spaces are normal in appearance. IMPRESSION: There is no acute fracture or dislocation. Electronically Signed by Aris Grimes MD 04/02/2018 10:11 A
== END ==
LOC: M WUC 08:31
PROVIDERS: ATTEND Physician Assistant
DX: M25.512 Pain in left shoulder (principal); S40.022A Contusion of left upper arm, initial encounter; S50.02XA Contusion of left elbow, initial encounter; X58.XXXA Exposure to other specified factors, initial encounter; Y92.9 Unspecified place or not applicable

== ENCOUNTER → 2018-04-20 | Outpatient (REF) | payer OTHER ==
[2018-04-20 18:17] LABS: BASO # 0.1 10^3/uL (0.0-0.2); BASO % 0.9 % (0.0-1.0); EOS # 0.3 10^3/uL (0.0-0.50); EOS % 3.8 % (0.0-3.0); HEMATOCRIT 41.5 % (36.0-47.0); HEMOGLOBIN 13.7 g/dl (12.0-15.5); LYMPH # 3.6 10^3/uL (1.5-4.5); LYMPH % 41.7 % (24.0-44.0); MEAN CORPUSCULAR HEMOGLOBIN 30.3 pg (27.0-33.0); MEAN CORPUSCULAR VOLUME 91.8 fl (80.0-96.0); MONO # 0.6 10^3/uL (0.0-0.8); MONO % 7.4 % (0.0-5.0); PLATELET COUNT, AUTOMATED 286 10^3/uL (150-450); RED BLOOD COUNT 4.52 10^6/uL (4.00-5.40); WHITE BLOOD COUNT 8.6 10^3/uL (4.0-10.0)
[2018-04-20 18:20] LABS: INR 0.92; PROTHROMBIN TIME 12.5 SECONDS (12.1-14.4)
[2018-04-20 18:21] LABS: PARTIAL THROMBOPLASTIN TIME 30.7 SECONDS (25.4-37.6)
[2018-04-20 18:23] LABS: ALBUMIN 3.9 GM/DL (3.2-5.2); ALT/SGPT 41 U/L (12-78); BILIRUBIN,TOTAL 0.3 MG/DL (0.2-1.0); BLOOD UREA NITROGEN 11 MG/DL (7-18); CALCIUM LEVEL 9.2 MG/DL (8.5-10.1); CARBON DIOXIDE LEVEL 30 MEQ/L (21-32); CHLORIDE LEVEL 105 MEQ/L (98-107); CREATININE FOR GFR 0.97 MG/DL (0.55-1.30); GLOMERULAR FILTRATION RATE > 60.0 (>51); GLUCOSE, FASTING 84 MG/DL (70-100); POTASSIUM SERUM 4.3 MEQ/L (3.5-5.1); SODIUM LEVEL 140 MEQ/L (136-145); TOTAL PROTEIN 6.7 GM/DL (6.4-8.2)
== END ==
LOC: M SFHCPLAZ 15:06
PROVIDERS: ATTEND Family Medicine
DX: Z01.818 Encounter for other preprocedural examination (principal)

== ENCOUNTER → 2018-05-05 | Outpatient (CLI) | payer OTHER ==
[2018-05-05 16:49] LABS: HEMATOCRIT 43.9 % (36.0-47.0); MEAN CORPUSCULAR HEMOGLOBIN 30.2 pg (27.0-33.0); MEAN CORPUSCULAR HGB CONC 31.9 g/dl (32.0-36.5); MEAN CORPUSCULAR VOLUME 94.6 fl (80.0-96.0); PLATELET COUNT, AUTOMATED 259 10^3/uL (150-450); RED BLOOD COUNT 4.64 10^6/uL (4.00-5.40); WHITE BLOOD COUNT 9.4 10^3/uL (4.0-10.0)
[2018-05-05 16:55] LABS: ALT/SGPT 36 U/L (12-78); BILIRUBIN,DIRECT < 0.1 MG/DL (0.0-0.2); BILIRUBIN,TOTAL 0.3 MG/DL (0.2-1.0); C REACTIVE PROTEIN QUANTITATIV < 0.30 MG/DL (0.00-0.30); TOTAL PROTEIN 6.6 GM/DL (6.4-8.2)
== END ==
LOC: M WUC 11:48
PROVIDERS: ATTEND Internal Medicine Gastroenterology
DX: R10.11 Right upper quadrant pain (principal); R19.5 Other fecal abnormalities

== ENCOUNTER → 2018-06-12 | Outpatient (CLI) | payer OTHER ==
[2018-06-12 18:50] LABS: ALBUMIN 3.6 GM/DL (3.2-5.2); ALT/SGPT 47 U/L (12-78); BILIRUBIN,DIRECT < 0.1 MG/DL (0.0-0.2); BILIRUBIN,TOTAL 0.3 MG/DL (0.2-1.0); TOTAL PROTEIN 6.3 GM/DL (6.4-8.2)
== END ==
LOC: M WUC 10:49
PROVIDERS: ATTEND Internal Medicine Gastroenterology
DX: R19.7 Diarrhea, unspecified (principal); R19.5 Other fecal abnormalities; E16.8 Other specified disorders of pancreatic internal secretion; K86.81 Exocrine pancreatic insufficiency; K21.9 Gastro-esophageal reflux disease without esophagitis; Z86.010 Personal history of colon polyps

== ENCOUNTER → 2018-06-16 | Outpatient (CLI) | payer OTHER ==
[2018-06-16 12:28] LABS: HEMATOCRIT 42.8 % (36.0-47.0); MEAN CORPUSCULAR HEMOGLOBIN 30.8 pg (27.0-33.0); MEAN CORPUSCULAR HGB CONC 32.7 g/dl (32.0-36.5); MEAN CORPUSCULAR VOLUME 94.3 fl (80.0-96.0); PLATELET COUNT, AUTOMATED 253 10^3/uL (150-450); RED BLOOD COUNT 4.54 10^6/uL (4.00-5.40); WHITE BLOOD COUNT 7.6 10^3/uL (4.0-10.0)
[2018-06-16 12:29] LABS: APPEARANCE, URINE CLEAR (CLEAR); BACTERIA, URINE AUTO NEGATIVE (NEGATIVE); BILIRUBIN, URINE AUTO NEGATIVE (NEGATIVE); BLOOD, URINE BLOOD NEGATIVE (NEGATIVE); COLOR, URINE YELLOW (YELLOW); GLUCOSE, URINE (UA) AUTO NEGATIVE (NEGATIVE); KETONE, URINE AUTO NEGATIVE (NEGATIVE); LEUKOCYTE ESTERASE, URINE AUTO NEGATIVE (NEGATIVE); NITRITE, URINE AUTO NEGATIVE (NEGATIVE); PROTEIN, URINE AUTO NEGATIVE (NEGATIVE); RBC, URINE AUTO 3 /HPF (0-3); SPECIFIC GRAVITY URINE AUTO 1.004 (1.002-1.035); SQUAMOUS EPITHELIAL CELL UR AU 0 /HPF (0-6); UROBILINOGEN, URINE AUTO 0.2 mg/dL (0.0-2.0); WBC, URINE AUTO 1 /HPF (0-3)
[2018-06-16 13:02] LABS: ALBUMIN 3.7 GM/DL (3.2-5.2); ALT/SGPT 41 U/L (12-78); AMYLASE 47 U/L (25-115); BILIRUBIN,DIRECT < 0.1 MG/DL (0.0-0.2); BILIRUBIN,TOTAL 0.2 MG/DL (0.2-1.0); LIPASE 161 U/L (73-393); TOTAL PROTEIN 6.3 GM/DL (6.4-8.2)
== END ==
LOC: M WUC 10:57
PROVIDERS: ATTEND Internal Medicine Gastroenterology
DX: R10.11 Right upper quadrant pain (principal); K82.8 Other specified diseases of gallbladder; R35.8 Other polyuria

== ENCOUNTER → 2018-07-21 | Outpatient (CLI) | payer OTHER ==
[2018-07-21 14:54] LABS: ALBUMIN 3.9 GM/DL (3.2-5.2); BILIRUBIN,DIRECT 0.1 MG/DL (0.0-0.2); BILIRUBIN,TOTAL 0.3 MG/DL (0.2-1.0); TOTAL PROTEIN 6.5 GM/DL (6.4-8.2)
== END ==
LOC: M WUC 13:22
PROVIDERS: ATTEND Specialist
DX: R17 Unspecified jaundice (principal)

== ENCOUNTER → 2018-08-13 | Outpatient (CLI) | payer OTHER, BC ==
[2018-08-13 17:24] LABS: ALBUMIN 3.4 GM/DL (3.2-5.2); ALT/SGPT 46 U/L (12-78); AMYLASE 41 U/L (25-115); BILIRUBIN,DIRECT < 0.1 MG/DL (0.0-0.2); BILIRUBIN,TOTAL 0.2 MG/DL (0.2-1.0); LIPASE 126 U/L (73-393); TOTAL PROTEIN 6.3 GM/DL (6.4-8.2)
== END ==
LOC: M WUC 14:25
PROVIDERS: ATTEND Internal Medicine Gastroenterology
DX: R10.11 Right upper quadrant pain (principal); R10.13 Epigastric pain; K82.8 Other specified diseases of gallbladder

== ENCOUNTER → 2018-10-11 | Outpatient (CLI) | payer OTHER, BC ==
[~2018-10-11] MED LIST changes: +CYAN100049 PO; -VITA10002 PO
[2018-10-11 17:19] LABS: ALBUMIN 3.9 GM/DL (3.2-5.2); ALT/SGPT 30 U/L (12-78); BILIRUBIN,TOTAL 0.5 MG/DL (0.2-1.0); BLOOD UREA NITROGEN 9 MG/DL (7-18); CALCIUM LEVEL 9.5 MG/DL (8.5-10.1); CARBON DIOXIDE LEVEL 30 MEQ/L (21-32); CHLORIDE LEVEL 107 MEQ/L (98-107); CREATININE FOR GFR 0.88 MG/DL (0.55-1.30); GLOMERULAR FILTRATION RATE > 60.0 (>51); GLUCOSE, FASTING 109 MG/DL (70-100); POTASSIUM SERUM 4.2 MEQ/L (3.5-5.1); SODIUM LEVEL 141 MEQ/L (136-145); TOTAL PROTEIN 6.6 GM/DL (6.4-8.2)
[2018-10-11 17:38] LABS: BASO # 0.1 10^3/uL (0.0-0.2); BASO % 0.9 % (0.0-1.0); EOS # 0.4 10^3/uL (0.0-0.50); EOS % 4.4 % (0.0-3.0); HEMATOCRIT 42.6 % (36.0-47.0); LYMPH # 3.2 10^3/uL (1.5-4.5); LYMPH % 37.1 % (24.0-44.0); MEAN CORPUSCULAR HEMOGLOBIN 30.4 pg (27.0-33.0); MEAN CORPUSCULAR HGB CONC 32.9 g/dl (32.0-36.5); MEAN CORPUSCULAR VOLUME 92.4 fl (80.0-96.0); MONO # 0.6 10^3/uL (0.0-0.8); MONO % 6.5 % (0.0-5.0); NEUTROPHILS # 4.4 10^3/uL (1.8-7.7); NEUTROPHILS % 50.9 % (36.0-66.0); PLATELET COUNT, AUTOMATED 270 10^3/uL (150-450); RED BLOOD COUNT 4.61 10^6/uL (4.00-5.40); WHITE BLOOD COUNT 8.7 10^3/uL (4.0-10.0)
== END ==
LOC: M WUC 11:24
DX: K80.50 Calculus of bile duct without cholangitis or cholecystitis without obstruction (principal)

== ENCOUNTER → 2018-10-25 | Outpatient (CLI) | payer BC, OTHER ==
--- NOTE | 2018-10-25 13:40 | REP ---
REASON: Tobacco abuse. COMPARISON: 04/17/2017. As per the low dose screening CT of the chest protocol only lung window images were sent to the read station for interpretation. There are no abnormal nodules, mass, or opacities. There is minimal thickening of an accessory fissure in the medial right upper lobe which is unchanged. IMPRESSION: Lung-RADS category 1 negative exam, no change from the prior exam. Electronically Signed by Jorge Guan DO 10/25/2018 02:06 P
== END ==
LOC: M RAD 08:48
PROVIDERS: ATTEND Family Medicine
DX: Z12.2 Encounter for screening for malignant neoplasm of respiratory organs (principal); F17.200 Nicotine dependence, unspecified, uncomplicated

== ENCOUNTER → 2018-11-26 | Outpatient (REF) | payer OTHER ==
[2018-12-03 00:07] LABS: CALPROTECTIN STOOL <16 ug/g (0-120); PANCREATIC ELASTASE STOOL 479 (>200)
== END ==
LOC: M LAB REF 17:30
PROVIDERS: ATTEND Internal Medicine Gastroenterology
DX: R10.9 Unspecified abdominal pain (principal); R11.0 Nausea; R10.30 Lower abdominal pain, unspecified; K86.89 Other specified diseases of pancreas

== ENCOUNTER → 2018-11-26 | Outpatient (REF) | payer OTHER ==
[2018-11-26 16:47] LABS: BASO # 0.1 10^3/uL (0.0-0.2); BASO % 1.1 % (0.0-1.0); EOS # 0.5 10^3/uL (0.0-0.5); EOS % 5.9 % (0.0-3.0); HEMATOCRIT 41.1 % (36.0-47.0); HEMOGLOBIN 13.8 g/dl (12.0-15.5); LYMPH # 3.5 10^3/uL (1.5-5.0); LYMPH % 43.5 % (24.0-44.0); MEAN CORPUSCULAR HEMOGLOBIN 30.9 pg (27.0-33.0); MEAN CORPUSCULAR HGB CONC 33.6 g/dl (32.0-36.5); MEAN CORPUSCULAR VOLUME 92.2 fl (80.0-96.0); MONO # 0.6 10^3/uL (0.0-0.8); NEUTROPHILS # 3.4 10^3/uL (1.5-8.5); NEUTROPHILS % 42.3 % (36.0-66.0); PLATELET COUNT, AUTOMATED 262 10^3/uL (150-450); RED BLOOD COUNT 4.46 10^6/uL (4.00-5.40)
[2018-11-26 17:00] LABS: HEMOGLOBIN A1c 5.3 %
[2018-11-26 17:12] LABS: ALBUMIN 3.8 GM/DL (3.2-5.2); ALT/SGPT 36 U/L (12-78); BILIRUBIN,TOTAL 0.3 MG/DL (0.2-1.0); BLOOD UREA NITROGEN 9 MG/DL (7-18); CARBON DIOXIDE LEVEL 27 MEQ/L (21-32); CHLORIDE LEVEL 108 MEQ/L (98-107); CREATININE FOR GFR 0.75 MG/DL (0.55-1.30); GLOMERULAR FILTRATION RATE > 60.0 (>51); GLUCOSE, FASTING 70 MG/DL (70-100); LIPASE 111 U/L (73-393); POTASSIUM SERUM 4.3 MEQ/L (3.5-5.1); SODIUM LEVEL 143 MEQ/L (136-145); TOTAL PROTEIN 6.5 GM/DL (6.4-8.2)
[2018-12-01 14:18] LABS: H PYLORI SERUM QUANT IgG ABY 0.33 (0.00-0.79); INSULIN LEVEL 5.6 uIU/mL (2.6-24.9)
== END ==
LOC: M SFHCPLAZ 14:04
PROVIDERS: ATTEND Nurse Practitioner Family
DX: R10.9 Unspecified abdominal pain (principal); R73.01 Impaired fasting glucose

== ENCOUNTER → 2019-01-03 | Outpatient (REF) | payer OTHER | LOC: M LAB REF 09:55 | PROVIDERS: ATTEND Physician Assistant | DX: R51 Headache (principal) ==

== ENCOUNTER → 2019-01-06 | Outpatient (CLI) | payer OTHER ==
[2019-01-06 16:53] LABS: ALBUMIN 3.8 GM/DL (3.2-5.2); ALT/SGPT 27 U/L (12-78); BILIRUBIN,TOTAL 0.3 MG/DL (0.2-1.0); BLOOD UREA NITROGEN 7 MG/DL (7-18); CARBON DIOXIDE LEVEL 29 MEQ/L (21-32); CHLORIDE LEVEL 108 MEQ/L (98-107); CHOLESTEROL LEVEL 172 MG/DL (<200); CHOLESTEROL RISK RATIO 3.017 (<5); CREATININE FOR GFR 0.84 MG/DL (0.55-1.30); GLOMERULAR FILTRATION RATE > 60.0 (>51); GLUCOSE, FASTING 75 MG/DL (70-100); HDL CHOLESTEROL 57 MG/DL (>40); LDL CHOLESTEROL 79 MG/DL (<100); NON-HDL-C 115 MG/DL; POTASSIUM SERUM 4.4 MEQ/L (3.5-5.1); SODIUM LEVEL 142 MEQ/L (136-145); TOTAL PROTEIN 6.2 GM/DL (6.4-8.2); TRIGLYCERIDES LEVEL 180 MG/DL (<150)
[2019-01-06 16:56] LABS: TOTAL 25(OH) VITAMIN D 19.2 NG/ML (30.0-100.0)
[2019-01-06 16:57] LABS: PTH INTACT 63.7 PG/ML (18.5-88.0)
[2019-01-06 17:58] LABS: HEMOGLOBIN A1c 5.4 %
== END ==
LOC: M WUC 13:34
PROVIDERS: ATTEND Family Medicine
DX: I10 Essential (primary) hypertension (principal); R73.01 Impaired fasting glucose; E55.9 Vitamin D deficiency, unspecified

== ENCOUNTER → 2019-04-06 | Outpatient (CLI) | payer BC, OTHER ==
[~2019-04-06] MED LIST changes: +ASPI81TA26 PO; +CARV6.25 PO; +LORA0.5T5 PO; +MOXI1TAB PO
--- NOTE | 2019-04-07 01:20 | REPPI ---
Clinical: Chest pain. Possible left lower lobe pneumonia . Comparison: 06/29/2017 . Technique: PA and lateral. Findings: The mediastinum and cardiac silhouette are normal. The lung thornton are clear and without acute consolidation, effusion, or pneumothorax. The skeletal structures are intact and normal. Impression: 1. No acute cardiopulmonary process. Electronically Signed by Eligio Cook MD 04/07/2019 01:11 A
== END ==
LOC: M PLAIMG 14:38
PROVIDERS: ATTEND Physician Assistant Medical
DX: J18.9 Pneumonia, unspecified organism (principal)

== ENCOUNTER 2019-04-07 19:02 | Inpatient (IN) | payer BC, OTHER ==
[~2019-04-07] VITALS: Ht 160 cm; Wt 80.2 kg
[~2019-04-07 19:02] MED LIST changes: -ASPI81TA26 PO; -CARV6.25 PO; -LORA0.5T5 PO; -MOXI1TAB PO; +VANCOMYCIN HCL 1,000 MG, VIAL MATE ADAPTER 1 EACH in D5W 250 ML IV ONE; +VANCOMYCIN HCL 500 MG in D5W MINI-BAG PLUS 100 ML IV ONE
[2019-04-07] MEDS ORDERED: NS 1,000 ML IV ONE ×3 (19:15→23:00)
[2019-04-07] MEDS ORDERED: LIDOCAINE 2% 5ML JELLY UROJET TOP ONE (19:15)
[2019-04-07] MEDS ORDERED: EPINEPHrine 1MG/10ML SYRINGE 1.5IN As Ordered ONE (19:26)
[2019-04-07] MEDS ORDERED: EPINEPHrine 1MG/10ML SYRINGE 1.5IN IV STA ×4 (19:26→21:56)
[2019-04-07] MEDS ORDERED: LORazepam 2 MG/ML VIAL (J2060) IV STA (19:29)
[2019-04-07] MEDS ORDERED: SODIUM BICARBONATE 8.4% INJ 50 ML SYRINGE IV STA ×5 (19:38→23:50)
[2019-04-07 19:41] LABS: HEMATOCRIT 51.8 % (36.0-47.0); HEMOGLOBIN 15.4 g/dl (12.0-15.5); MEAN CORPUSCULAR HEMOGLOBIN 30.5 pg (27.0-33.0); MEAN CORPUSCULAR HGB CONC 29.7 g/dl (32.0-36.5); MEAN CORPUSCULAR VOLUME 102.6 fl (80.0-96.0); PLATELET COUNT, AUTOMATED 259 10^3/uL (150-450); RED BLOOD COUNT 5.05 10^6/uL (4.00-5.40)
[2019-04-07 19:50] LABS: WHITE BLOOD COUNT 8.6 10^3/uL (4.0-10.0)
[2019-04-07 19:51] LABS: INR 1.32; PROTHROMBIN TIME 16.1 SECONDS (11.8-14.0)
[2019-04-07 19:52] LABS: PARTIAL THROMBOPLASTIN TIME 54.5 SECONDS (25.0-38.4)
[2019-04-07 20:08] LABS: ALBUMIN 3.1 GM/DL (3.2-5.2); ALT/SGPT 50 U/L (12-78); AMYLASE 65 U/L (25-115); BILIRUBIN,DIRECT < 0.1 MG/DL (0.0-0.2); BILIRUBIN,TOTAL 0.2 MG/DL (0.2-1.0); BLOOD UREA NITROGEN 11 MG/DL (7-18); CALCIUM LEVEL 8.3 MG/DL (8.5-10.1); CARBON DIOXIDE LEVEL 17 MEQ/L (21-32); CHLORIDE LEVEL 107 MEQ/L (98-107); CK-MB VALUE MASS 7.7 NG/ML (<3.6); CPK CREATINE PHOSPHOKINASE 473 U/L (26-192); CREATININE FOR GFR 1.27 MG/DL (0.55-1.30); ETHYL ALCOHOL (ETHANOL) 0.004 % (0.000-0.010); GLOMERULAR FILTRATION RATE 46.5 (>51); GLUCOSE, FASTING 308 MG/DL (70-100); LIPASE 252 U/L (73-393); MAGNESIUM LEVEL 2.5 MG/DL (1.8-2.4); MB/CK RELATIVE INDEX 1.63 (< OR =4); PHOSPHORUS LEVEL 8.3 MG/DL (2.5-4.9); POTASSIUM SERUM 4.3 MEQ/L (3.5-5.1); SODIUM LEVEL 140 MEQ/L (136-145); TOTAL PROTEIN 5.8 GM/DL (6.4-8.2); TROPONIN I < 0.02 NG/ML (< 0.10)
[2019-04-07] MEDS ORDERED: NOREPINEPHRINE 4 MG/4 ML AMP As Ordered ONE (20:11)
[2019-04-07 20:15] LABS: ANISOCYTOSIS 1+; ATYPICAL LYMPH 24 % (0-5); EOSINOPHILS 2 % (0-3); HYPOCHROMASIA 1+; LYMPHOCYTES 53 % (16-44); MONOCYTES 1 % (0-5); MYELOCYTES 1 % (0-0); NEUTROPHILS 19 % (28-66)
[2019-04-07 20:16] LABS: PLATELET ESTIMATE NORMAL (NORMAL)
--- NOTE | 2019-04-07 20:43 | REP ---
PORTABLE CHEST: AP portable view of the chest is performed. There is no acute infiltrate. The lungs are clear. Heart is normal in size. Endotracheal tube is seen with the tip approximately 4 cm above the brayan. Nasogastric tube traverses into the stomach. Electronically Signed by Bong Dobbs MD 04/08/2019 12:49 P
[2019-04-07] MEDS ORDERED: NOREPINEPHRINE BITARTRATE 8 MG in D5W 492 ML IV SCH (21:00)
[2019-04-07] MEDS: LACRILUBE (AKWA TEARS) OPHTH OINT 3.5 GM OU SCH (21:00)
[2019-04-07 21:19] VITALS: O2SAT 100
[2019-04-07] MEDS ORDERED: ASPI81TA26 PO (21:25)
[2019-04-07] MEDS ORDERED: MOXI1TAB PO (21:25)
[2019-04-07] MEDS ORDERED: LORA0.5T5 PO (21:25)
[2019-04-07] MEDS ORDERED: CARV6.25 PO (21:25)
[2019-04-07] MEDS ORDERED: LACRILUBE (AKWA TEARS) OPHTH OINT 3.5 GM OU PRN (21:30)
[2019-04-07] MEDS ORDERED: VANCOMYCIN HCL 1,000 MG, VIAL MATE ADAPTER 1 EACH in D5W 250 ML IV SCH (21:30)
[2019-04-07] MEDS ORDERED: ACETAMINOPHEN 650 MG SUPP PR PRN (21:30)
[2019-04-07] MEDS: diphenhydrAMINE INJ 50MG/ML VIAL (J1200) IV SCH (22:00)
[2019-04-07] MEDS ORDERED: IPRATROPIUM 0.5MG/ALBUTEROL 2.5MG INH SOL UD 3ML (DUONEB)(J7620) NEB PRN (22:15)
[2019-04-07 22:40] VITALS: O2SAT 100
--- NOTE | 2019-04-07 22:50 | ECHO ---
DATE OF SERVICE: 04/07/2019 DATE OF : 1965 AGE: 53 PATIENT LOCATION: Emergency department. REFERRING PHYSICIAN: Dr. Laura Quintanilla REASON FOR ECHOCARDIOGRAM: Post cardiac arrest. 2D COMMENTS: 1. The left ventricle appeared to be mildly enlarged with severe diffuse hypokinesis and the septum seems to be dyskinetic. The distal basal portion of the left ventricle seems to be johan. The estimated left ventricular systolic ejection fraction is 15%. 2. The left atrium appeared to be normal in size. Normal right atrium and right ventricle. 3. The atrial septum appeared to be normal without evidence of defect or shunt. 4. Normal aortic root. 5. No pericardial effusion seen. 6. Mildly calcified aortic valve with normal leaflet excursion. Mildly calcified mitral annulus with normal anterior mitral leaflet motion. Normal tricuspid valve. The pulmonic valve appeared to be normal in limited views. 7. The inferior vena cava appeared to be mildly enlarged, subjectively. Central venous pressure might be elevated. There was, however, good respiratory collapse. DOPPLER: Doppler detects trace mitral regurgitation and mild to moderate tricuspid regurgitation. The calculated pulmonary artery systolic pressure varies between 40-50 mmHg. The assessment of the left ventricular diastolic function appeared to be limited by artifact. IMPRESSION 1. Severe global left ventricular systolic dysfunction with regional wall motion abnormalities that may be related to the apical ballooning syndrome versus underlying coronary artery disease. 2. Mild to moderate tricuspid regurgitation with probably moderate pulmonary hypertension. 3. Mild mitral regurgitation. MTDD
--- NOTE | 2019-04-07 23:16 | REPVR ---
PROCEDURE INFORMATION: Exam: CT Head Without Contrast Exam date and time: 04/07/2019 10:25 PM Age: 53 years old Clinical indication: Condition or disease; Other: Cardiac arrest TECHNIQUE: Imaging protocol: Computed tomography of the head without contrast. Radiation optimization: All CT scans at this facility use at least one of these dose optimization techniques: automated exposure control; mA and/or kV adjustment per patient size (includes targeted exams where dose is matched to clinical indication); or iterative reconstruction. COMPARISON: CT Head without contrast 10/14/2017 11:40 AM FINDINGS: Brain: There is some crowding of the sulci, best visualized in the high bilateral frontal lobes when compared to prior CT. The dobbs-white differentiation is maintained. No hemorrhage. Ventricles: Normal. No ventriculomegaly. Bones/joints: Unremarkable. No acute fracture. Sinuses: Visualized sinuses are unremarkable. No fluid levels. Mastoid air cells: Visualized mastoid air cells are well aerated. Soft tissues: Unremarkable. IMPRESSION: Crowding of the sulci in the high bilateral frontal lobes representing edema. Dobbs-white differentiation is maintained. No hemorrhage. Electronically signed by: Bj Diego On 04/07/2019 23:15:58 PM
--- NOTE | 2019-04-07 23:16 | HPE ---
DATE OF ADMISSION: 04/07/2019 Ms. Hong is a 53-year-old female with a past medical history of hypertension, gastroesophageal reflux disease (GERD), asthma, obstructive sleep apnea (GÓMEZ) - on continuous positive airway pressure (CPAP), history of pancreatic insufficiency, allergic rhinitis and chronic sinusitis who presented with cardiac arrest. History was obtained from the patient's family and from the emergency department (ED) staff as the patient was intubated and unable to provide a history. As per patient's family, the patient had complained of symptoms of increasing cough and some shortness of breath. She was diagnosed with possible pneumonia as an outpatient and was ordered a prescription of Avelox, which she had previously taken in the past. The patient does have a history of multiple allergies to various antibiotics including levofloxacin. Her allergies to penicillin, cephalexin and doxycycline are with anaphylaxis and angioedema. The patient apparently has taken Avelox in the past before with no significant reaction. Today, the patient's family stated she took her first dose of the antibiotic that she was just prescribed and then 5 minutes later, after going to the bathroom, came out stating she was short of breath and having difficulty breathing. The patient became unresponsive in front of the who then laid her on the floor. 9-1-1 was called and he was advised to start chest compressions, which he did. After approximately 10 minutes or so, emergency medical services (EMS) arrived and started advanced cardiovascular life support (ACLS). She received reportedly two amps of epi with cardiopulmonary resuscitation (CPR) and then achieved return of spontaneous circulation (ROSC). Total down time was approximately 20 minutes before ROSC was achieved. When the patient initially presented to the ED, she was intubated and did have a blood pressure and pulse. In the ED, however, she became bradycardic and then lost her pulse briefly and had a another round of CPR where she received epinephrine and bicarb. The patient regained her pulse again; however, a few minutes later again became more hypotensive and was unable to clearly palpate a pulse. She was given additional amps of bicarb and another epinephrine with a brief round of CPR when she regained her pulse again. The patient was then started on Levophed peripherally and did have a sustained blood pressure at that time. After her arrest, on her initial arrival to the ED she was unresponsive. She had very sluggish pupillary reflexes and initially was overbreathing on the ventilator. After her repeated episodes CPR, she was not noted to have significant pupillary reflexes and was not overbreathing on the ventilator. In the ED, the patient was also given 1 liter normal saline bolus. PAST MEDICAL HISTORY: Hypertension. Nicotine addiction. Depression and anxiety. GÓMEZ on CPAP. GERD. Mild asthma. Allergic rhinitis Chronic sinusitis. Low back pain. Exocrine pancreatic insufficiency. PAST SURGICAL HISTORY: section. Endometrial laser ablation. Hysteroscopy. Left shoulder spur removal. Deviated septum repair. Cholecystectomy. HOME MEDICATIONS: - Flonase - Zyrtec - albuterol as needed - vitamin D - carvedilol - cholestyramine - vitamin B12 - fluticasone nasal spray - Wellbutrin - lorazepam as needed ALLERGIES: DOXYCYCLINE - hives/angioedema. BACTRIM - rash. PENICILLIN - anaphylaxis. PRILOSEC - abdominal bloating. PROTONIX - headache. LEVAQUIN - nausea, vomiting. SULFA - rash. CEPHALEXIN - anaphylaxis. FAMILY HISTORY: Father with A history of Parkinson's, hypertension and metastatic renal cell carcinoma. mother with a history of chronic obstructive pulmonary disease (COPD), depression, coronary artery disease, with myocardial infarction (ID). SOCIAL HISTORY: Former smoker, was one pack a day since the age of 24, quit a few years ago. REVIEW OF SYSTEMS: Unable to be obtained as the patient is intubated. PHYSICAL EXAM: Temperature 96, pulse 120, respiratory rate 30, blood pressure 129/101, oxygen saturation (O2 sat) 100% on the ventilator at 70% FiO2. General: The patient is intubated, is not on any sedation and is unresponsive to painful stimuli. HEENT: Normocephalic, atraumatic. Pupils are mildly dilated and unresponsive. Neck is supple. Trachea is midline. No palpable adenopathy. Cardiac: Tachycardiac, regular rate and rhythm. Normal S1, S2. Unable to appreciate any murmurs. Pulmonary: Coarse ventilated breath sounds bilaterally. No wheezing, rales or rhonchi. Abdomen is soft, mildly distended, does not appear tender to palpation with no guarding. There is a mild erythematous irregular rash on the abdomen. Extremities: There is no significant lower extremity edema bilaterally. There is an IO in place on the right tibia with no evidence of infiltration. There is some erythema in her extremities, particularly in her legs and in her arms. LABORATORY DATA: WBC 8.6, hemoglobin 15.4, platelets 259. Chemistry: Sodium is 140, potassium 4.3, chloride 107, bicarbonate 17, BUN 11, creatinine 1.27, anion gap 16, glucose 308, phosphorus 8.3, magnesium 2.5, total bilirubin 0.2, AST 47, ALT 50, CPK 473, troponin negative, total protein 5.8, albumin 3.1. Amylase and lipase are within normal limits. Lactic acid elevated at 11.7. INR 1.32. PT 16.1, PTT 54.5, D-dimer 4000. Initial ABG: pH 6.759, pCO2 is 119.7, pO2 is 262. Repeat ABG after vent adjustment and bicarbonate: pH 7.274, pCO2 of 60.7, pO2 of 494. IMAGING STUDIES: Chest x-ray Shows endotracheal (ET) tube in good position. There is an orogastric (OG) tube coursing below the diaphragm. There is no focal opacities or infiltrates and no pleural effusion. ASSESSMENT AND PLAN: Ms. Hong is a 53-year-old female with a history of asthma, obstructive sleep apnea, allergic rhinitis and chronic sinusitis, gastroesophageal reflux disease, hypertension, anxiety and depression who presented with a cardiac arrest. As per patient's family, she was complaining of some increased cough and shortness of breath, and was diagnosed with possible pneumonia as an outpatient. She was prescribed Avelox for antibiotic, which she had previously taken before with no reaction. She does have a history of allergy to Levaquin with a reported side effect of abdominal complaints. She does have allergies to other antibiotics with reported side effects of anaphylaxis and angioedema. The patient had taken the first dose of the prescribed Avelox, and a few minutes later started complaining of shortness of breath and then became unresponsive. The patient had CPR and epinephrine with ROSC achieved after approximately 20 minutes. In the ED initially she had a blood pressure; however, she later became hypotensive and lost her pulse and had another two rounds of CPR. The patient was given multiple amps of epinephrine in the ED and was started on Levophed peripherally. She was then able to sustain a blood pressure after her last brief episode of CPR. NEUROLOGIC: Patient is unresponsive post arrest with a Fredy Coma Scale (GCS) less than 8. The patient will therefore be started on hypothermia protocol. - Will start the patient on hypothermia protocol with a targeted temperature of 36 degrees Celsius. - Will get a head CT as well for evaluation. - Will start propofol for sedation with Versed as needed for shivering/agitation. - Did discuss with the patient's family that there was some concern about her poor neurologic prognosis given her out of hospital arrest with the multiple sessions of CPR needed. CARDIOVASCULAR: - The patient presented with an out of hospital cardiac arrest. She has a history of hypertension but no other history of coronary artery disease or heart failure. The patient reportedly was being treated as an outpatient for possible pneumonia. Although, on admission she did not have any leukocytosis, no fevers and her chest x-ray did not show any significant evidence of pneumonia. Sepsis and septic shock is less likely a cause for her cardiac arrest and her continued hypotension and shock requiring Levophed. The patient does have a history of multiple drug allergies with reported reactions of anaphylaxis. Suspect she likely had an anaphylactic reaction leading to her sudden cardiac arrest, as she did respond to epinephrine. Her hypotension post arrest was likely contributed to her severe acidemia. Also in the differential would be potentially cardiac event, although her initial EKG did not show any significant ST elevations, and her initial troponin was negative making an acute coronary event less likely. Pulmonary embolism (PE) is also in the differential, although the patient appears to be oxygenating well on her initial arterial blood gas (ABG), and she was able to achieve ROSC with epinephrine and CPR without any thrombolytics. - Will place a central line and arterial line for the hypothermia protocol. - Will continue with Levophed to maintain a mean arterial pressure (MAP) above 65. The patient was given 1 liter of normal saline in the ED. Will given additional 1 liter of normal saline fluid bolus. - Will get a stat echocardiogram for evaluation. If there is any evidence of right ventricular (RV) dilation or RV hypokinesis, will start her on anticoagulation for possible PE. The patient has evidence of acute kidney injury (SHANNON) and so will hold off on a CT angiogram. - Will continue to trend troponins and repeat EKG in the morning. - Will hold her antihypertensive medications given her shock. - The patient is on Levophed currently, and she did receive epinephrine which would treat for anaphylactic reaction. Will check a tryptase to help with diagnosis for possible anaphylactic reaction. Will continue with Solu-Medrol 40 mg every 8 hours and with an H2 ernesto, and with Benadryl for now. PULMONARY: History of asthma and possible pneumonia as an outpatient. The patient's initial chest x-ray did not show any significant opacities, and she did not have any wheezing on exam. - Will get a CT chest without contrast for further evaluation. - Will give broad-spectrum antibiotics for now for possible community-acquired pneumonia pending her CT. She has multiple drug allergies and so will give her vancomycin and aztreonam and will check a procalcitonin to help with de-escalation of her antibiotics. - Will start DuoNebs as needed. The patient is on steroids for possible anaphylaxis. - The patient is intubated and on mechanical ventilation with volume control. Her respiratory was increased due to her hypercarbia. Will adjust her vent settings to 400/28/50 and 5 and continue to wean down her FiO2 as tolerated to maintain oxygen saturation above 90%. - Continue with vent bundle care while intubated with head of bed elevation and chlorhexidine mouthwash. - Continue with daily chest x-rays and ABGs while intubated. RENAL: Patient with mild SHANNON, likely in the setting of her arrest and shock. Patient also with a severe metabolic acidosis secondary to a lactic acidosis with a respiratory acidosis as well. - The patient was given multiple amps of bicarb in the ED, and her repeat ABG showed some improvement. A bicarbonate drip was initially started, which we can discontinue now given her repeat ABG. - Will need to continue to trend her lactate. - Will need to monitor her renal function and renally dose medications and avoid nephrotoxins if possible. The patient has a Bearden placed and will monitor her intake and output. GASTROINTESTINAL (GI): The patient has an OG tube placed to low wall intermittent suction. She had mildly increased AST on admission, which we will need to monitor as given her initial arrest and shock, she may have a component of shock liver developing. - Will keep patient nothing by mouth (n.p.o.) on hypothermia protocol. - For GI prophylaxis, she has allergies reportedly to omeprazole and pantoprazole, so will place her on ranitidine. - Will get a CT of the abdomen and pelvis. DEEP VEIN THROMBOSIS (DVT) PROPHYLAXIS: Heparin. GI PROPHYLAXIS: Ranitidine. CODE STATUS: Full code. Total critical care time spent not including any procedures: Approximately 2 hours and 25 minutes. LLOYD
--- NOTE | 2019-04-07 23:21 | REPVR ---
PROCEDURE INFORMATION: Exam: CT Abdomen And Pelvis Without Contrast Exam date and time: 04/07/2019 10:25 PM Age: 53 years old Clinical indication: Other: Cardiac arrest TECHNIQUE: Imaging protocol: Computed tomography of the abdomen and pelvis without contrast. Radiation optimization: All CT scans at this facility use at least one of these dose optimization techniques: automated exposure control; mA and/or kV adjustment per patient size (includes targeted exams where dose is matched to clinical indication); or iterative reconstruction. COMPARISON: CT ABD/PEL W/IV ORAL CONTRAS 11/20/2017 4:16 PM FINDINGS: Tubes, catheters and devices: Nasogastric tube is seen with its tip in the stomach. Lungs: Patch of consolidation in the visualized left lung base. Liver: Normal. No mass. Gallbladder and bile ducts: Normal. No calcified stones. No ductal dilation. Pancreas: Normal. No ductal dilation. Spleen: Normal. No splenomegaly. Adrenals: Normal. No mass. Kidneys and ureters: Normal. No hydronephrosis. Stomach and bowel: Unremarkable. No obstruction. No mucosal thickening. Appendix: No evidence of appendicitis. Intraperitoneal space: Unremarkable. No free air. No significant fluid collection. Vasculature: Unremarkable. No abdominal aortic aneurysm. Lymph nodes: Unremarkable. No enlarged lymph nodes. Bladder: Bearden's catheter in the bladder. Reproductive: Unremarkable as visualized. Bones/joints: Unremarkable. No acute fracture. Soft tissues: Unremarkable. IMPRESSION: No acute abdominal or pelvic abnormality. Electronically signed by: Bj Diego On 04/07/2019 23:21:04 PM
--- NOTE | 2019-04-07 23:27 | REPVR ---
PROCEDURE INFORMATION: Exam: CT Chest Without Contrast Exam date and time: 04/07/2019 10:25 PM Age: 53 years old Clinical indication: Other: Cardiac arrest TECHNIQUE: Imaging protocol: Computed tomography of the chest without contrast. Radiation optimization: All CT scans at this facility use at least one of these dose optimization techniques: automated exposure control; mA and/or kV adjustment per patient size (includes targeted exams where dose is matched to clinical indication); or iterative reconstruction. COMPARISON: No relevant prior studies available. FINDINGS: Tubes, catheters and devices: Endotracheal tube with its tip above the brayan. Nasogastric tube is seen with its tip in the stomach. Lungs: Patchy ground-glass opacities in right middle lobe and lower lobe. Pleural space: Small pneumothorax in the right lung. Patchy consolidation in the left lung base. If 5 mm focus of air is seen in the medial left lung base which may represent a tiny pneumothorax versus a bullous lesion. Heart: Unremarkable. No cardiomegaly. No pericardial effusion. Aorta: Unremarkable. No aortic aneurysm. Lymph nodes: Small lymph nodes in the precarinal region measuring less than 1 cm. Bones/joints: Acute fracture of the left anterior 3rd 4th 5th 6th 7th ribs. Acute fracture of the anterior right 3rd,4th, 5th 6th 7th ribs. Soft tissues: Unremarkable. IMPRESSION: Multiple acute fractures of bilateral anterior ribs extending from 3rd through 7th ribs. Small right pneumothorax. Possible tiny left pneumothorax versus bullous lesion. Patchy ground-glass opacities in bilateral lungs which may represent contusion. Electronically signed by: Bj Diego On 04/07/2019 23:27:32 PM
[2019-04-07 23:52] LABS: ABG BASE EXCESS -12.9 (-2.0-2.0); ABG HCO3 13.1 MEQ/L (22.0-26.0); ABG O2 SATURATION 99.3 % (95.0-99.0); ABG PARTIAL PRESSURE CO2 31.5 mmHg (35.0-45.0); ABG PARTIAL PRESSURE O2 197.2 mmHg (75.0-100.0); ABG STANDARD HCO3 14.8 MEQ/L (22.0-26.0); ABG TOTAL CO2 14.1 MEQ/L (22.0-29.0)
[2019-04-07 23:56] LABS: ABG pH (ARTERIAL) 7.238 UNITS (7.350-7.450)
[2019-04-08] VITALS (44 sets, daily range): BP systolic 84–147; BP diastolic 53–93; O2SAT 99–100
[2019-04-08] MEDS ORDERED: SODIUM BICARBONATE 150 MEQ in D5W 1,000 ML IV SCH ×2
[2019-04-08] MEDS: AZTREONAM 2 GM in D5W MINI-BAG PLUS 50 ML IV SCH ×4 (00:18→22:51)
[2019-04-08] MEDS: propofoL 1,000 MG in IV 1 EA IV SCH ×2 (00:25→18:27)
--- NOTE | 2019-04-08 00:26 | REPVR ---
PROCEDURE INFORMATION: Exam: XR Chest, 1 View Exam date and time: 04/08/2019 12:07 AM Age: 53 years old Clinical indication: Device placement; Other: S/P central line place; Patient HX: Right side pneumothorax? TECHNIQUE: Imaging protocol: XR of the chest Views: 1 view. COMPARISON: CR PORTABLE CHEST X-RAY 04/07/2019 7:15 PM FINDINGS: Tubes, catheters and devices: Endotracheal tube with its tip above the brayan. It is a gastric tube is seen with its tip in the region of stomach. A right central venous catheter with its tip in the distal superior vena cava. Lungs: Unremarkable. No consolidation. Pleural space: Unremarkable. No pleural effusion. No pneumothorax. Heart/Mediastinum: Unremarkable. No cardiomegaly. Bones/joints: Degenerative changes of the spine. IMPRESSION: Tubes and lines in place. Small pneumothorax in the right hemithorax better visualized in the CT chest of the same date. Electronically signed by: Bj Diego On 04/08/2019 00:26:28 AM
[2019-04-08] MEDS: HEPARIN SOD (PORCINE) 5000 UNITS/ML VIAL (J1644 PER 1000UNITS) SC SCH ×4 (00:46→20:56)
[2019-04-08] MEDS: methylPREDNISolone INJ 125 MG/2 ML VIAL (J2930) IV SCH ×4 (00:46→20:56)
[2019-04-08] MEDS ORDERED: VANCOMYCIN HCL 1,000 MG, VIAL MATE ADAPTER 1 EACH in D5W 250 ML IV ONE (01:00)
[2019-04-08 01:37] LABS: HEMATOCRIT 46.9 % (36.0-47.0); MEAN CORPUSCULAR HEMOGLOBIN 30.4 pg (27.0-33.0); MEAN CORPUSCULAR VOLUME 94.9 fl (80.0-96.0); PLATELET COUNT, AUTOMATED 285 10^3/uL (150-450); RED BLOOD COUNT 4.94 10^6/uL (4.00-5.40); WHITE BLOOD COUNT 25.8 10^3/uL (4.0-10.0)
[2019-04-08 01:47] LABS: INR 1.42; PROTHROMBIN TIME 17.1 SECONDS (11.8-14.0)
[2019-04-08 01:48] LABS: PARTIAL THROMBOPLASTIN TIME 34.6 SECONDS (25.0-38.4)
[2019-04-08] MEDS ORDERED: VANCOMYCIN HCL 500 MG in D5W MINI-BAG PLUS 100 ML IV ONE (02:00)
[2019-04-08 02:05] LABS: ALBUMIN 2.7 GM/DL (3.2-5.2); BILIRUBIN,TOTAL 0.3 MG/DL (0.2-1.0); CALCIUM LEVEL 6.6 MG/DL (8.5-10.1); CREATININE FOR GFR 1.91 MG/DL (0.55-1.30); POTASSIUM SERUM 3.7 MEQ/L (3.5-5.1); TOTAL PROTEIN 5.1 GM/DL (6.4-8.2)
[2019-04-08] MEDS: CHLORHEXIDINE GLUCONATE 0.12 % 15ML UDC (PERIDEX ORAL RINSE) MT SCH ×3 (02:11→20:45)
[2019-04-08] MEDS: raNITIdine SYRUP 150 MG/10 ML UDC NG SCH ×3 (02:11→20:45)
[2019-04-08 02:19] LABS: MAGNESIUM LEVEL 1.7 MG/DL (1.8-2.4); MB/CK RELATIVE INDEX 2.38 (< OR =4); PHOSPHORUS LEVEL 4.1 MG/DL (2.5-4.9); TROPONIN I 3.53 NG/ML (< 0.10)
[2019-04-08] MEDS ORDERED: EPINEPHrine 1MG/10ML SYRINGE 1.5IN ONE (04:08)
--- NOTE | 2019-04-08 04:17 | PHACANCOPD ---
PHARMACY VANCOMYCIN DOSING Pt Demographics Demographics Patient Age:53 , Weight:72.000 , Gender: female Adjusted Body Weight Date: 04/08/19, Adjusted Body Weight: Kg Vancomycin Vancomycin indication: Sepsis Vancomycin Target Ranges: 15-20 mcg/ml Vancomycin Load Y/N: Yes Load Dose Date Time Vancomycin Load Dose: 1500mg Date: 04/08/19 Time: 0200 Vancomycin Dose Date: 04/08/19. Current Vancomycin Dose: [ 1 gram every 24 hours ] Intermittent Dosing?: No Labs Labs Vital Signs Label Value Date Time Patient Temperature 97.6 degrees F 04/08/19 0300 Temperature Source Core 04/08/19 0300 Pulse 80 04/08/19 0300 Pulse 110 04/07/19 221 Blood Pressure Assessment 170/62 (98) 04/07/192209 Blood Pressure Assessment 111/54 (73) 04/07/192216 Blood Pressure Assessment 92/83 04/08/19 0300 Source Arterial Line Item Value Date Time White Blood Count 8.6 10^3/uL 04/07/191906 White Blood Count 25.8 10^3/uL H 04/08/19 0123 Creatinine 1.27 MG/DL 04/07/191912 Glomerular Filtration Rate 46.5 L 04/07/19 191 Lactic Acid Level 11.7 MMOL/L *H 04/07/191912 Lactic Acid Level 8.0 MMOL/L *H 04/08/19 0123 Micro Microbiology 04/07/19 Blood Culture, Received Pending Creatinine Clearance Date:04/08/19. Creatinine Clearance: [ 52.89 mL/min ]. Assessment and Plan Maintaining Current Dose?: Yes Reason for dose change: No Dose Change Pharmacist Note Pharmacist Note Date: 04/08/19. Pharmacist note: Ms. Hong is a 53-year-old female who arrived at [facility] after arresting at home. She had just begun treatment for pneumonia on moxifloxacin. She was initiated on broad-spectrum antibiotic therapy, including aztreonam and vancomycin, for the diagnosis of sepsis. She has allergies to multiple antibiotics including penicillins, cephalexin, doxycycline, sulfa, and levofloxacin. Ms. Hong has no previous history of vancomycin therapy at [facility] and has decent renal function. A loading dose of 1.5 grams of vancomycin was given this morning, with a maintenance dose of 1000mg scheduled for every 24 hours. Due to her severity of infection, her goal vancomycin trough is 15- 20mcg/dL. We will continue to monitor and make adjustments as needed. KENRICK BUNDY [facility]ARMAC[facility] Apr 08, 2019 04:17
[2019-04-08] MEDS: diphenhydrAMINE INJ 50MG/ML VIAL (J1200) IV SCH ×2 (05:08→13:40)
[2019-04-08 05:23] LABS: HEMATOCRIT 46.8 % (36.0-47.0); HEMOGLOBIN 15.2 g/dl (12.0-15.5); MEAN CORPUSCULAR HEMOGLOBIN 30.4 pg (27.0-33.0); MEAN CORPUSCULAR HGB CONC 32.5 g/dl (32.0-36.5); MEAN CORPUSCULAR VOLUME 93.6 fl (80.0-96.0); PLATELET COUNT, AUTOMATED 232 10^3/uL (150-450); WHITE BLOOD COUNT 25.1 10^3/uL (4.0-10.0)
[2019-04-08 05:36] LABS: INR 1.43; PROTHROMBIN TIME 17.1 SECONDS (11.8-14.0)
[2019-04-08 05:38] LABS: PARTIAL THROMBOPLASTIN TIME 32.4 SECONDS (25.0-38.4)
[2019-04-08 05:44] LABS: BILIRUBIN,TOTAL 0.4 MG/DL (0.2-1.0); CALCIUM LEVEL 6.8 MG/DL (8.5-10.1); CREATININE FOR GFR 2.13 MG/DL (0.55-1.30); GLOMERULAR FILTRATION RATE 25.6 (>51); MAGNESIUM LEVEL 1.8 MG/DL (1.8-2.4); PHOSPHORUS LEVEL 2.5 MG/DL (2.5-4.9); POTASSIUM SERUM 3.1 MEQ/L (3.5-5.1); TOTAL PROTEIN 5.4 GM/DL (6.4-8.2)
[2019-04-08 05:53] LABS: LYMPHOCYTES 12 % (16-44); METAMYELOCYTES 6 % (0-0); MONOCYTES 4 % (0-5); MYELOCYTES 2 % (0-0); NEUTROPHILS 72 % (28-66); PLATELET ESTIMATE NORMAL (NORMAL)
[2019-04-08 06:00] LABS: ABG BASE EXCESS -8.7 (-2.0-2.0); ABG HCO3 15.7 MEQ/L (22.0-26.0); ABG O2 SATURATION 99.3 % (95.0-99.0); ABG PARTIAL PRESSURE CO2 30.2 mmHg (35.0-45.0); ABG PARTIAL PRESSURE O2 192.4 mmHg (75.0-100.0); ABG STANDARD HCO3 17.7 MEQ/L (22.0-26.0); ABG TOTAL CO2 16.6 MEQ/L (22.0-29.0); ABG pH (ARTERIAL) 7.334 UNITS (7.350-7.450)
[2019-04-08 06:01] LABS: PLATELET CLUMPS SMALL AMT
--- NOTE | 2019-04-08 07:16 | ROOPDOC ---
[facility] Report Of Operation Report of Operation DATE OF PROCEDURE: 04/07/19 PREPROCEDURE DIAGNOSES: shock, s/p cardiac arrest POSTPROCEDURE DIAGNOSES: shock, s/p cardiac arrest INDICATION: Vasopressor administration PROCEDURE: Right IJ central line placement Performed by: Dr. Laura Ontiveros M.D. Assisted by: Dr. Adithya Alvarez, PGY-1 Attending: Dr. Laura Ontiveros M.D. ANESTHESIA: local ESTIMATED BLOOD LOSS: Approximately 0 mL. COMPLICATIONS: none PROCEDURE NOTE: Procedure was emergent, so consent was implied. DESCRIPTION OF PROCEDURE: Full sterile technique maintained throughout including sterile gown, mask with eye protection, cap and sterile gloves. The patient was placed in the supine position, was placed in Trendelenburg. The right chest region and neck was prepped with chlorhexidine scrub. The patient was draped in the typical sterile fashion using a full drape. Ultrasonography was employed at bedside. A sterile probe cover was placed over the ultrasound. The medial and lateral head of the sternocleidomastoid were identified, as was the carotid pulse. The internal jugular vein was identified using ultrasound. Anesthesia was achieved over the internal jugular vein on the right using a 1% lidocaine soluti on. Once anesthetized, an introducer needle was inserted into the internal jugular vein under direct ultrasound visualization. Venous blood was withdrawn, syringe was removed and a guidewire was advanced on to the introducer needle. The guidewire was visualized in the internal jugular vein by ultrasound. A small incision was made in the skin surface with a scalpel, and the introducer needle was exchanged for a dilator over the guidewire. After appropriate dilation was obtained, the dilator was exchanged over the wire for a central venous catheter. The wire was removed, and the catheter was sutured in place. A sterile chlorhexadine impregnated dressing was placed over the catheter site. The patient tolerated the procedure well without any hemodynamic compromise. At the time of procedure completion, all ports were aspirated and flushed properly. Postprocedure x-ray was performed, which demonstrated adequate positioning of the central venous catheter in the right internal jugular vein. Laura Rooney, was present and supervised the entirety of the procedure ADRIÁN ALVAREZ D.O. Apr 08, 2019 07:16 LAURA ONTIVEROS MD Apr 09, 2019 12:50
--- NOTE | 2019-04-08 07:27 | REP ---
Clinical: Intubation. Comparison: 04/07/2019. Findings: Endotracheal tube 4 cm above the brayan. Nasogastric tube courses below left hemidiaphragm. Right IJ line with tip in the SVC. Mediastinum and cardiac silhouette stable. Lung thornton demonstrate stable interstitial changes (left greater than right). No new acute consolidation, obvious effusion or pneumothorax identified on current examination. Known rib fractures poorly identified. Impression: 1. Lines and tubes in satisfactory, stable position. 2. Subtle area of opacity primarily in the left mid/lower lung zone consistent with given history of contusions. 3. No obvious residual pneumothorax identified. Electronically Signed by Eligio Cook MD 04/08/2019 07:19 A
[2019-04-08] MEDS: MIDAZOLAM INJ 2 MG/2 ML VIAL (J2250) IV PRN ×6 (08:12→23:26)
[2019-04-08 08:51] LABS: ABG BASE EXCESS -6.9 (-2.0-2.0); ABG HCO3 16.8 MEQ/L (22.0-26.0); ABG O2 SATURATION 99.4 % (95.0-99.0); ABG PARTIAL PRESSURE CO2 29.5 mmHg (35.0-45.0); ABG PARTIAL PRESSURE O2 203.7 mmHg (75.0-100.0); ABG TOTAL CO2 17.7 MEQ/L (22.0-29.0); ABG pH (ARTERIAL) 7.373 UNITS (7.350-7.450)
[2019-04-08] MEDS ORDERED: PANTOPRAZOLE 40MG INJ (PROTONIX) (C9113) IV SCH (09:00)
[2019-04-08] MEDS ORDERED: AZITHROMYCIN INJ 500 MG, VIAL MATE ADAPTER 1 EACH in D5W 250 ML IV SCH (09:00)
[2019-04-08] MEDS ORDERED: ASPIRIN 81 MG ENTERIC TAB PO SCH (09:00)
[2019-04-08 09:09] LABS: HEMOGLOBIN 15.3 g/dl (12.0-15.5); MEAN CORPUSCULAR HEMOGLOBIN 31.2 pg (27.0-33.0); MEAN CORPUSCULAR VOLUME 91.8 fl (80.0-96.0); PLATELET COUNT, AUTOMATED 245 10^3/uL (150-450)
[2019-04-08 09:31] LABS: INR 1.3
[2019-04-08] MEDS: LACRILUBE (AKWA TEARS) OPHTH OINT 3.5 GM OU SCH ×3 (09:36→20:45)
[2019-04-08] MEDS: KCL 20MEQ IN 100ML SWI (KRUN) 20 MEQ in IV 1 EA IV SCH ×6 (09:36→12:29)
[2019-04-08] MEDS: ASPIRIN 81 MG CHEW TABLET FT SCH (09:42)
[2019-04-08 09:47] LABS: ALBUMIN 2.9 GM/DL (3.2-5.2); BILIRUBIN,TOTAL 0.4 MG/DL (0.2-1.0); CALCIUM LEVEL 7.1 MG/DL (8.5-10.1); CREATININE FOR GFR 2.17 MG/DL (0.55-1.30); GLOMERULAR FILTRATION RATE 25.1 (>51); MAGNESIUM LEVEL 1.8 MG/DL (1.8-2.4); PHOSPHORUS LEVEL 3.3 MG/DL (2.5-4.9); POTASSIUM SERUM 3.5 MEQ/L (3.5-5.1); TOTAL PROTEIN 5.6 GM/DL (6.4-8.2)
[2019-04-08] MEDS ORDERED: EPINEPHrine INJ 1 MG/ML 1ML VIAL SC STA (10:46)
[2019-04-08] MEDS ORDERED: EPINEPHrine INJ 1 MG/ML 1ML VIAL As Ordered ONE (10:47)
[2019-04-08] MEDS ORDERED: EPINEPHrine INJ 1 MG/ML 1ML VIAL IM STA ×3 (10:50→15:47)
[2019-04-08] MEDS ORDERED: HEPARIN 1,000 UNITS/ML 10ML VIAL (FOR RADIOLOGY& DIALYSIS ONLY)(J1644-10) IV PRN (11:15)
[2019-04-08] MEDS ORDERED: SODIUM CHLORIDE 0.9% INJ 10 ML SYR IV PRN (11:15)
--- NOTE | 2019-04-08 12:04 | CCN ---
CRITICAL CARE PROGRESS NOTE DATE: 04/08/2019 The patient was seen and examined this morning during bedside rounds. Overnight the patient has continued on hypothermia protocol. She did have episodes of fever where she had required decreasing temperature on the [place] to try to maintain her at the goal targeted temperature of 36 degrees Celsius. The patient was able to be weaned off of pressors overnight and her blood pressure remained stable off of pressors. She is on sedation with propofol at 10 mics per kilogram per minute as well as Versed p.r.n. for shivering and agitation. Overnight the patient was noted to have almost no urine output. The patient initially had some bloody output from her OG tube, which then became more bilious and gastric contents this morning. PHYSICAL EXAMINATION: Temperature 94.6, pulse 79, respirations 32, blood pressure 94/83, O2 sat 100% on 40% FiO2. Ins overnight 454 mL, out 80 mL. GENERAL: Patient is intubated, is on sedation and is unresponsive to painful stimuli. HEENT: Normocephalic, atraumatic. Pupils are mildly dilated with the left slightly larger than the right and unresponsive. There is no corneal reflex. NECK: Neck is supple. Trachea is midline. No palpable adenopathy. There is no gag reflex. CARDIAC: Regular rate and rhythm with few PVCs. Normal S1-S2. Unable appreciate any murmurs. PULMONARY: Coarse ventilator breath sounds bilaterally. No wheezing, rales or rhonchi. ABDOMEN: Soft, nontender and nondistended. EXTREMITIES: There is no significant lower extremity edema bilaterally. The IO has been removed in her right leg. The previously noted erythema in her legs and her arms has improved. LABORATORIES: WBC 25.1, hemoglobin 15.2, platelets 232. Chemistry: Sodium is 141, potassium 3.1, chloride is 113, bicarb is 19, BUN 22, creatinine 2.19, glucose is 209, calcium 6.8, mag 1.8, AST 174, ALT 85, lactic acid decreased to 6.6, troponin increasing to 4.92. ABG: pH is 7.334, pCO2 of 30.2, pO2 of 192.4. IMAGING: Chest x-ray this morning shows ET tube and OG tube in good position. The right IJ is in place with the tip in the SVC. There is some increased interstitial markings with a mild infiltrate in the left mid lower lung. ASSESSMENT/PLAN: Ms. Brown is a 53-year female with history of asthma, GÓMEZ, allergic rhinitis and chronic sinusitis, gastroesophageal reflux disease, hypertension, anxiety who presented as an out of hospital cardiac arrest. The patient was started on antibiotics as an outpatient for possible pneumonia. She was given Avelox, which she had previously taken before with no reaction, although she does have an extensive history to multiple antibiotics with reported anaphylaxis to other antibiotics in the past. The patient took the first dose of her prescribed Avelox and a few minutes later started complaining of shortness of breath and then became unresponsive. The patient had CPR initiated, received epinephrine and had ROSC achieved after approximately 20 minutes. In the ED she presented initially with a blood pressure however, later became hypotensive and lost her pulse and required another two rounds of CPR before achieving ROSC again. 1. Neuro: Patient was unresponsive post cardiac arrest and so was started on hypothermia protocol. - Will continue the patient on hypothermia protocol with a targeted temperature of 35 degrees Celsius now for 24 hours since she was at goal temperature. - The patient's head CT showed some mild edema in the bilateral frontal lobes, likely due to anoxic injury. - Will continue with propofol for sedation with Versed p.r.n. for shivering/agitation. - Discussed with the family again that there was some concern about her neurologic prognosis given her CT head showing some evidence of edema, likely secondary to anoxic injury. 2. Cardiovascular: The patient presented as an out of hospital cardiac arrest. She has a history of hypertension, but no other history of coronary artery disease or heart failure. The patient was being treated for a possible pneumonia as an outpatient although on admission she did not have any leukocytosis or fevers and her chest x-ray initially did not show any significant opacities or infiltrates to suggest pneumonia. Sepsis and septic shock is less likely a cause for initial cardiac arrest. She does have a history of multiple drug allergies with reported reactions of anaphylaxis. Suspect her cardiac arrest with due to an anaphylactic reaction and she responded appropriately to epinephrine as well of Levophed and so was able to be weaned off of pressors overnight. An acute coronary event was also possible although her initial EKG did not show any significant ST elevations consistent with an acute NV. Her initial troponins were also negative. She has now had increasing troponins which is likely due to her cardiac event and with the CPR. Her echocardiogram shows evidence of reduced EF now and possible Takotsubo cardiomyopathy which may be secondary to an anaphylactic reaction or other stressors. There was no evidence of dilated RV or RV volume overload suggestive of a PE. - Patient has a right IJ triple lumen in place and a right femoral arterial line. She was weaned off of Levophed, but will continue to monitor and maintain a MAP above 65. - Will continue to trend troponins and followup daily EKGs. Will start aspirin but will hold off on anticoagulation as she is coagulopathic with the hypothermia. - Will followup her tryptase level which was added to her initial labs to followup for diagnosis of possible anaphylactic shock. - Will continue with Solu-Medrol 40 mg q.8 h for the next 2 days and continue with the Benadryl and H2 ernesto for now. 3. Pulmonary: History of asthma and possible pneumonia as an outpatient. Her initial chest x-ray did not show any significant opacities and she did not have any significant wheezing on exam. - The patient's CT chest on admission showed a very trace, barely perceptible, right pneumothorax which was likely in the setting of her rib fractures and CPR. There are some bilateral scattered opacities in the periphery which are thought to be due to contusions from her multiple rounds of CPR. - The patient does have some increasing leukocytosis now and so will continue with broad-spectrum antibiotics for possible pneumonia with vancomycin and aztreonam given her multiple drug allergies. - Will followup procalcitonin and continue to trend to forger helper de-escalation of antibiotics. The patient will be started on azithromycin for possible atypicals. - Continue with DuoNebs. - Continue mechanical ventilation with volume control. Will wean down her respiratory rate as her repeat ABG shows improvement in her metabolic and respiratory acidosis. Will change her vent settings to 400/26/40/3 and continue wean FiO2 as tolerated to maintain O2 sat above 90%/ - Continue vent bundle care with head of bed elevation and chlorhexidine mouthwash. - Continue with daily chest x-rays and ABGs while intubated. 4. Renal. Patient with increasing creatinine and acute renal failure likely in the setting of her shock and likely ATN at this point. She had initial metabolic acidosis secondary to lactic acidosis with an additional respiratory acidosis. Her metabolic lactic acidosis has been trending down and her respiratory acidosis has also improved. - Given her anuric state and increasing creatinine, will consult renal as the patient may potentially require continuous veno-venous hemodialysis (CVVHD). - Will continue to monitor her renal function and electrolytes and replete as needed. - will continue to monitor her ins and outs via Bearden catheter. - Appreciate renal consult and their recommendations. 5. GI: The patient has an OG tube placed to low wall intermittent suction. Initially she had bloody output from her OG tube which now appears to be gastric contents. The patient does have some mildly increasing LFTs likely secondary to shock liver. Will continue to monitor. - Will keep patient n.p.o. while on hypothermia protocol. - Will continue with ranitidine for GI prophylaxis given her allergies to PPI. - The patient's CT of the abdomen and pelvis initially did not show any acute findings. Deep vein thrombosis (DVT) prophylaxis, heparin. Gastrointestinal (GI) prophylaxis with ranitidine. CODE STATUS: FULL CODE. Total critical care time spent, not including procedures, approximately 1 hour 15 minutes.
[2019-04-08 12:06] LABS: CK-MB VALUE MASS 87.1 NG/ML (<3.6); MB/CK RELATIVE INDEX 2.42 (< OR =4)
[2019-04-08] MEDS ORDERED: MAG SULF 1GM/100ML (MAG RUN) 1 GM in IV 1 EA IV ONE (13:00)
--- NOTE | 2019-04-08 13:23 | ECGEPIP ---
[facility] - ED Test Date: 2019-04-07 Pat Name: WAQAS VINCENT Department: Room: [place] [address] Gender: Female Indian Nanny: juan : 1965 Requested By: JOSETTE SOLORIO Order Number: [id number] Reading MD: Keara Cuevas Measurements Intervals [place] Rate: 68 P: 61 NH: 161 QRS: -41 QRSD: 100 T: 265 QT: 417 QTc: 445 Interpretive Statements SINUS RHYTHM MARKED LEFT AXIS DEVIATION ST DEVIATION AND MODERATE T-WAVE ABNORMALITY, CONSIDER ISCHEMIA CLINICAL CORRELATION 01/08/16 COMPARISON Electronically Signed on 04-08-2019 13:23:29 EST by Keara Cuevas
--- NOTE | 2019-04-08 13:48 | ROOPDOC ---
[facility] Report Of Operation Report of Operation DATE OF PROCEDURE: 04/08/19 PREPROCEDURE DIAGNOSES: Renal failure. POSTPROCEDURE DIAGNOSES: Renal failure. INDICATION: Hemodialysis access PROCEDURE: Left femoral hemodialysis catheter placement. PHYSICIAN: Laura Ontiveros MD MASTER [employer]AR[employer] TECHNICIAN: Desi MOORE ANESTHESIA: local 1% lidocaine. ESTIMATED BLOOD LOSS: Approximately 2 mL. COMPLICATIONS: none. REMARKS: Patient tolerated procedure well. PROCEDURE NOTE: Date: 04/08/2019 Time: 1320 Indication: Renal failure, Access for hemodialysis Medical student: Desi RODRÍGUEZ IV Attending physician: Laura Ontiveros MD A timeout was completed verifying correct patient, procedure, site, positioning and equipment. Patient was placed in a dependent position appropriate for central line placement based on the vein to be cannulated. Full sterile techn ique maintained throughout the procedure including cap, sterile gown, facemask, and sterile gloves. The patient's left groin was prepped and draped in sterile fashion. Ultrasound visualization was used for procedure with sterile probe cover employed. One percent lidocaine was used to anesthetize surrounding skin area. Using real time out of plane guidance the introducer needle was inserted into the left femoral vein. Venous blood was withdrawn and the guidewire was inserted into the introducer needle. The needle was removed over the guidewire. A small incision in the skin was made to facilitate dilation over the guidewire. Two increasing dilations over the guidewire performed, and the double lumen hemodialysis catheter was threaded smoothly over the guidewire into the left common femoral vein. The guidewire was removed. There was venous blood return in the catheter. Each lumen of the catheter was flushed with sterile saline. Catheter was then sutured in placed skin and a sterile chlorhexadine impregnated dressing was applied. Heparin was instilled in the catheter. Perfusion to the extremity distal to the point of catheter insertion was checked and found be adequate. Dr. Laura Ontiveros was present for the entire procedure. Estimated blood loss: 5 mL Patient tolerated the procedure well and there were no complications.. DESCRIPTION OF PROCEDURE: Left common femoral vein dialysis catheter placement. GME ATTESTATION GME ATTESTATION My faculty preceptor for this patient encounter was physically present during the encounter and was fully available. All aspects of the patient interview, examination, medical decision making process, and medical care plan development were reviewed and approved by the faculty preceptor. The faculty preceptor is aware and concurs with the plan as stated in the body of this note and will attest to such by his/her cosignature. ATTENDING NOTE I, Laura Ontiveros was present and supervised the entirety of the procedure DESI VERNON OMS-III Apr 08, 2019 13:48 LAURA ONTIVEROS MD Apr 09, 2019 12:53
--- NOTE | 2019-04-08 14:24 | RO ---
DATE OF PROCEDURE: 04/08/2019 INDICATION: Hemodynamic monitoring. PREPROCEDURE DIAGNOSES: Cardiac arrest and shock. POSTPROCEDURE DIAGNOSIS: Cardiac arrest and shock. ATTENDING PHYSICIAN: Dr. Quintanilla CONSENT: Consent was implied due to the emergent nature of the procedure. The patient's family did verbally consent to the procedure when the indications, risks and benefits were explained. PROCEDURE SUMMARY: A time-out was performed. Full sterile technique was maintained throughout the procedure, including surgical cap, mask, eyewear, sterile gown, sterile gloves, and a sterile probe cover. The right inguinal region was prepped using chlorhexidine scrub and draped in sterile fashion using a fenestrated drape. Anesthesia was achieved using 1% lidocaine. The right femoral artery was visualized on ultrasound. Using real auto plane guidance, the introducer needle was inserted into the right femoral artery. Arterial blood was withdrawn. The syringe was removed and a guidewire was advanced through the needle into the femoral artery. The needle was exchanged over the wire for an arterial catheter. The wire was removed and the catheter was sutured to the skin using sutures. The patient tolerated the procedure without any hemodynamic compromise. At the time of procedure completion, the catheter was connected to the monitoring tech and calibrated. Appropriate waveform and blood pressure tracing was observed. Estimated blood loss is approximately 5 mL.
[2019-04-08 15:49] LABS: ABG BASE EXCESS -10.3 (-2.0-2.0); ABG HCO3 14.2 MEQ/L (22.0-26.0); ABG O2 SATURATION 99.3 % (95.0-99.0); ABG STANDARD HCO3 16.5 MEQ/L (22.0-26.0); ABG pH (ARTERIAL) 7.322 UNITS (7.350-7.450)
[2019-04-08] MEDS ORDERED: NS 1,000 ML IV ONE (16:00)
[2019-04-08 16:05] LABS: HEMATOCRIT 42.9 % (36.0-47.0); HEMOGLOBIN 13.8 g/dl (12.0-15.5); MEAN CORPUSCULAR HEMOGLOBIN 29.9 pg (27.0-33.0); MEAN CORPUSCULAR HGB CONC 32.2 g/dl (32.0-36.5); MEAN CORPUSCULAR VOLUME 93.1 fl (80.0-96.0); PLATELET COUNT, AUTOMATED 212 10^3/uL (150-450); RED BLOOD COUNT 4.61 10^6/uL (4.00-5.40)
[2019-04-08 16:07] LABS: WHITE BLOOD COUNT 31.7 10^3/uL (4.0-10.0)
[2019-04-08 16:21] LABS: INR 1.32; PROTHROMBIN TIME 16.1 SECONDS (11.8-14.0)
[2019-04-08 16:22] LABS: PARTIAL THROMBOPLASTIN TIME 42.3 SECONDS (25.0-38.4)
[2019-04-08 16:32] LABS: ALBUMIN 2.8 GM/DL (3.2-5.2); BILIRUBIN,TOTAL 0.4 MG/DL (0.2-1.0); CREATININE FOR GFR 2.16 MG/DL (0.55-1.30); GLOMERULAR FILTRATION RATE 25.2 (>51); MAGNESIUM LEVEL 2.1 MG/DL (1.8-2.4); PHOSPHORUS LEVEL 3.3 MG/DL (2.5-4.9); POTASSIUM SERUM 4.4 MEQ/L (3.5-5.1); TOTAL PROTEIN 5.4 GM/DL (6.4-8.2)
[2019-04-08 17:30] LABS: TROPONIN I 3.53 NG/ML (< 0.10)
--- NOTE | 2019-04-08 17:51 | CR ---
DATE OF CONSULTATION: 04/08/2019 CONSULTATION REPORT FOR: Dr. Laura Quintanilla CONSULTING PHYSICIAN: Dr. Ponce REASON FOR CONSULTATION: Oliguric acute kidney injury in the setting of recurrent cardiac arrest. HISTORY OF PRESENT ILLNESS: Jodi Hong is previously unknown to me. She is a 53-year-old female with a past medical history of hypertension, gastroesophageal reflux disease (GERD), asthma, multiple antibiotic allergies, obstructive sleep apnea (GÓMEZ), history of pancreatic insufficiency who was admitted status post cardiac arrest at home. History is obtained from discussion with healthcare workers and the patient's and children at the bedside. As per her family, the patient was having shortness of breath and cough for a few days and was diagnosed with possible pneumonia in the outpatient setting and was prescribed moxifloxacin which she has previously taken in the past (documented history to levofloxacin). Apparently, she took the first dose of moxifloxacin, went to the bathroom, and a few minutes later came else stating that she was short of breath and became unresponsive in front of her who started chest compressions after contacting emergency medical services (EMS). She received two ampules of epinephrine prior to return of spontaneous circulation and total down time was approximately 20 minutes. The patient was intubated and transferred to the emergency room. However, in the emergency room, she again lost her pulse and had another round of cardiopulmonary resuscitation (CPR) with epinephrine and bicarbonate with subsequent return of spontaneous circulation. However, a few minutes later, she again became hypotensive and pulse was not palpable and there was a brief round of CPR with additional bicarbonate and epinephrine and return of spontaneous circulation. The patient was then started on Levophed infusion. Hypothermia protocol was initiated and the patient was transferred to the intensive care unit. Overnight in the intensive care unit, the patient did come off of pressors and her systolic blood pressure has been 80s to 90 on the arterial line. She has had no significant urine output and laboratory studies reveal significant lactic acidosis and worsening renal function. Nephrology evaluation was requested for help in the patient's oliguric renal failure. PAST MEDICAL HISTORY: 1. Multiple antibiotic allergies. 2. Hypertension. 3. Nicotine addiction. 4. Depression. 5. Anxiety. 6. Sleep apnea, on continuous positive airway pressure (CPAP). 7. Gastroesophageal reflux disease (GERD). 8. History of mild asthma. 9. Allergic rhinitis. 10. Low back pain. 11. Exocrine pancreatic insufficiency. PAST SURGICAL HISTORY: 1. (C) section. 2. Endometrial laser ablation. 3. Hysteroscopy. 4. Left shoulder spur removal. 5. Deviated septum repair. 6. Cholecystectomy. HOME MEDICATIONS: Flonase, Zyrtec, albuterol as needed, vitamin D, Carvedilol, cholestyramine, vitamin B12, fluticasone nasal spray, Wellbutrin, and lorazepam as needed. ALLERGIES: 1. DOXYCYCLINE with hives and angioedema. 2. BACTRIM with rash. 3. PENICILLIN with anaphylaxis. 4. PRILOSEC with abdominal bloating. 5. PROTONIX with headache. 6. LEVAQUIN with nausea and vomiting. 7. SULFA rash. 8. CEPHALEXIN with anaphylaxis. FAMILY HISTORY: Significant for metastatic renal cell carcinoma and hypertension in the father. SOCIAL HISTORY: She has an ex-smoker. She lives at home with , son and daughter. No drug or alcohol use. REVIEW OF SYSTEMS: Unable to be obtained as the patient is intubated. PHYSICAL EXAMINATION: VITAL SIGNS: Rectal temperature 97.2, pulse 83, respiratory rate 31, blood pressure 84/53 on the arterial line, saturating 93% on 40% fraction of inspired oxygen (FiO2). Review of intake and output yesterday shows input of one liter and urine output of 10 mL. Weight in the bed scale today is 72.2 kg. GENERAL: The patient is seen in the intensive care unit, intubated and unresponsive. Pupils are mildly dilated and poorly responsive. Neck is supple. There is endotracheal tube in place. Jugular veins are not elevated. Heart sounds are regular rate and rhythm. There is no edema. There is no appreciable murmur. PULMONARY: There are symmetric, coarse ventilated breath sounds bilaterally. No crackles or rales. Abdomen is soft and nondistended. Extremities are negative for edema, clubbing or cyanosis. Genitourinary shows Bearden catheter with minimal urine in the tubing. LINES: There is an arterial line present and a right internal jugular (IJ) central line present. Skin is cool. Hypothermia protocol is in place. LABORATORY DATA: White count 31, hemoglobin 15, platelet 245. Sodium 144, potassium 3.5, bicarbonate 20, BUN 24, creatinine 2.1, lactic acid 6.4, magnesium 1.8, troponin 4.9, CK 3600. Chest x-ray 04/08/2019: Lines and tubes in stable position, lung thornton with interstitial changes. No effusions. Head CT 04/07/2019: Crowding of the sulci in the high bilateral frontal lobes representing edema. INPATIENT MEDICATIONS: - aztreonam 2 grams IV every eight hours - magnesium sulfate 1 gram IV times one - normal saline 1 liter bolus times two - propofol drip - Tylenol as needed - aspirin 81 mg daily - diphenhydramine 25 mg IV every eight hours - multiple rounds of IV epinephrine - heparin 5000 units subcutaneous every eight hours - Solu-Medrol 40 mg IV every eight hours - Versed as needed - ranitidine 150 mg twice a day - multiple ampules of sodium bicarbonate PROBLEMS: 1. Oligoanuric acute renal failure in the setting of recurrent cardiac arrest, likely due to anaphylaxis with shock. The patient has had significant hemodynamic instability and cardiac arrest at home with an initial down time of 20 minutes and two reported brief episodes of loss of pulse in the emergency room, then with cardiopulmonary resuscitation (CPR) and epinephrine. She likely has acute tubular necrosis secondary to the above. Given her unstable picture, probable anoxic encephalopathy, borderline blood pressures and cardiac instability, I would opt for continuous renal replacement therapy (CRRT) as opposed to intermittent hemodialysis. I have discussed the benefits and risks with her who agrees for placement of dialysis catheter and initiation of continuous renal replacement therapy. There are no signs of fluid overload. Orders have been written to keep her "even" as long as mean arterial pressure is maintained above 65 and to not remove any fluid for a mean arterial pressure (MAP) less than 65. 2. Metabolic acidosis, secondary to cardiac arrest and lactic acidosis. Most recent lactic level this morning is 6.4. The patient also had multiple rounds of bicarbonate. Her most recent blood gas shows an acceptable pCO2 of 29 on the ventilator. Repeat lactic acid after a few hours of CRRT. 3. Probable anoxic cephalopathy status post recurrent cardiac arrest, presently on hypochromic protocol. CT head noted with edema of the frontal lobes and crowding of the sulci. We will opt for CRRT as opposed to intermittent hemodialysis due to increased ability of cerebral perfusion pressure associated with CRRT. 4. Systolic congestive heart failure. The patient does not have a prior known history of congestive heart failure (CHF). Recent echocardiogram noted with ejection fraction of 15%. Laboratory work with increasing troponin. She is presently off of pressor support and systolic blood pressure has been in the 90s. We will opt for CRRT at present with fluid removal only to keep even when MAP as above 65. 5. Probable anaphylaxis, status post cardiac arrest, multiple rounds of epinephrine, managed per the critical care team. She is on IV steroids, Benadryl and H2 ernesto (proton pump inhibitor allergy). Thank you for involving me in the care of Ms. Hong. Plan of care was discussed with Dr. Quintanilla at the bedside and with the family as well.
[2019-04-08 18:35] LABS: ABG BASE EXCESS -8.1 (-2.0-2.0); ABG HCO3 16.2 MEQ/L (22.0-26.0); ABG O2 SATURATION 99.3 % (95.0-99.0); ABG PARTIAL PRESSURE CO2 30.3 mmHg (35.0-45.0); ABG PARTIAL PRESSURE O2 203.8 mmHg (75.0-100.0); ABG TOTAL CO2 17.1 MEQ/L (22.0-29.0); ABG pH (ARTERIAL) 7.346 UNITS (7.350-7.450)
[2019-04-08 19:10] LABS: HEMATOCRIT 40.4 % (36.0-47.0); HEMOGLOBIN 13.8 g/dl (12.0-15.5); MEAN CORPUSCULAR HEMOGLOBIN 31.1 pg (27.0-33.0); MEAN CORPUSCULAR HGB CONC 34.2 g/dl (32.0-36.5); PLATELET COUNT, AUTOMATED 212 10^3/uL (150-450); RED BLOOD COUNT 4.44 10^6/uL (4.00-5.40)
[2019-04-08 19:13] LABS: WHITE BLOOD COUNT 33.8 10^3/uL (4.0-10.0)
[2019-04-08] MEDS ORDERED: ACETAMINOPHEN 325 MG/10.15 ML UDC GT PRN (19:15)
[2019-04-08 19:20] LABS: INR 1.25; PROTHROMBIN TIME 15.5 SECONDS (11.8-14.0)
[2019-04-08 19:21] LABS: PARTIAL THROMBOPLASTIN TIME 32.9 SECONDS (25.0-38.4)
[2019-04-08 19:39] LABS: ALBUMIN 2.9 GM/DL (3.2-5.2); BILIRUBIN,TOTAL 0.4 MG/DL (0.2-1.0); CALCIUM LEVEL 7.2 MG/DL (8.5-10.1); CREATININE FOR GFR 1.93 MG/DL (0.55-1.30); GLOMERULAR FILTRATION RATE 28.7 (>51); PHOSPHORUS LEVEL 2.9 MG/DL (2.5-4.9); TOTAL PROTEIN 5.6 GM/DL (6.4-8.2)
[2019-04-08] MEDS: VANCOMYCIN HCL 1,000 MG, VIAL MATE ADAPTER 1 EACH in D5W 250 ML IV SCH (20:45)
[2019-04-08 22:47] LABS: ABG BASE EXCESS -5.2 (-2.0-2.0); ABG HCO3 19.2 MEQ/L (22.0-26.0); ABG O2 SATURATION 99.2 % (95.0-99.0); ABG PARTIAL PRESSURE CO2 34.2 mmHg (35.0-45.0); ABG PARTIAL PRESSURE O2 192.5 mmHg (75.0-100.0); ABG STANDARD HCO3 20.3 MEQ/L (22.0-26.0); ABG TOTAL CO2 20.3 MEQ/L (22.0-29.0); ABG pH (ARTERIAL) 7.368 UNITS (7.350-7.450)
[2019-04-08 22:54] LABS: HEMATOCRIT 41.2 % (36.0-47.0); HEMOGLOBIN 13.7 g/dl (12.0-15.5); MEAN CORPUSCULAR HGB CONC 33.3 g/dl (32.0-36.5); MEAN CORPUSCULAR VOLUME 90.4 fl (80.0-96.0); PLATELET COUNT, AUTOMATED 203 10^3/uL (150-450); RED BLOOD COUNT 4.56 10^6/uL (4.00-5.40)
[2019-04-08 22:57] LABS: WHITE BLOOD COUNT 33.1 10^3/uL (4.0-10.0)
[2019-04-08 23:13] LABS: PARTIAL THROMBOPLASTIN TIME 32.9 SECONDS (25.0-38.4)
[2019-04-08 23:19] LABS: ALBUMIN 2.9 GM/DL (3.2-5.2); BILIRUBIN,TOTAL 0.4 MG/DL (0.2-1.0); CALCIUM LEVEL 7.1 MG/DL (8.5-10.1); CREATININE FOR GFR 1.7 MG/DL (0.55-1.30); GLOMERULAR FILTRATION RATE 33.2 (>51); MAGNESIUM LEVEL 2.1 MG/DL (1.8-2.4); PHOSPHORUS LEVEL 2.8 MG/DL (2.5-4.9); POTASSIUM SERUM 4.9 MEQ/L (3.5-5.1); TOTAL PROTEIN 5.7 GM/DL (6.4-8.2)
[2019-04-08 23:22] LABS: INR 1.2; PROTHROMBIN TIME 14.9 SECONDS (11.8-14.0)
[2019-04-09] VITALS (56 sets, daily range): BP systolic 76–155; BP diastolic 48–83; O2SAT 96
[2019-04-09] MEDS ORDERED: VANCOMYCIN HCL 1,000 MG, VIAL MATE ADAPTER 1 EACH in D5W 250 ML IV SCH (01:00)
[2019-04-09 02:48] LABS: ABG BASE EXCESS -3.3 (-2.0-2.0); ABG HCO3 20.7 MEQ/L (22.0-26.0); ABG O2 SATURATION 99.2 % (95.0-99.0); ABG PARTIAL PRESSURE CO2 34.4 mmHg (35.0-45.0); ABG PARTIAL PRESSURE O2 172.2 mmHg (75.0-100.0); ABG STANDARD HCO3 21.7 MEQ/L (22.0-26.0); ABG TOTAL CO2 21.8 MEQ/L (22.0-29.0); ABG pH (ARTERIAL) 7.398 UNITS (7.350-7.450)
[2019-04-09 03:10] LABS: HEMATOCRIT 39.3 % (36.0-47.0); HEMOGLOBIN 13.2 g/dl (12.0-15.5); MEAN CORPUSCULAR HEMOGLOBIN 30.4 pg (27.0-33.0); MEAN CORPUSCULAR HGB CONC 33.6 g/dl (32.0-36.5); MEAN CORPUSCULAR VOLUME 90.6 fl (80.0-96.0); PLATELET COUNT, AUTOMATED 185 10^3/uL (150-450); RED BLOOD COUNT 4.34 10^6/uL (4.00-5.40)
[2019-04-09 03:14] LABS: WHITE BLOOD COUNT 31.7 10^3/uL (4.0-10.0)
[2019-04-09 03:21] LABS: INR 1.25; PROTHROMBIN TIME 15.4 SECONDS (11.8-14.0)
[2019-04-09 03:22] LABS: PARTIAL THROMBOPLASTIN TIME 33.1 SECONDS (25.0-38.4)
[2019-04-09 03:37] LABS: ALBUMIN 2.8 GM/DL (3.2-5.2); BILIRUBIN,TOTAL 0.4 MG/DL (0.2-1.0); CALCIUM LEVEL 7.6 MG/DL (8.5-10.1); CREATININE FOR GFR 1.48 MG/DL (0.55-1.30); MAGNESIUM LEVEL 2.5 MG/DL (1.8-2.4); PHOSPHORUS LEVEL 2.8 MG/DL (2.5-4.9); POTASSIUM SERUM 4.8 MEQ/L (3.5-5.1); TOTAL PROTEIN 5.5 GM/DL (6.4-8.2)
[2019-04-09] MEDS ORDERED: CALCIUM GLUCONATE 1,000 MG in D5W MINI-BAG PLUS 100 ML IV ONE ×2 (04:00→05:00)
[2019-04-09] MEDS: HEPARIN SOD (PORCINE) 5000 UNITS/ML VIAL (J1644 PER 1000UNITS) SC SCH ×3 (05:18→20:37)
[2019-04-09] MEDS: methylPREDNISolone INJ 125 MG/2 ML VIAL (J2930) IV SCH (05:18)
[2019-04-09] MEDS: AZTREONAM 2 GM in D5W MINI-BAG PLUS 50 ML IV SCH ×3 (06:36→23:11)
[2019-04-09 06:38] LABS: ABG BASE EXCESS -1.1 (-2.0-2.0); ABG HCO3 22.5 MEQ/L (22.0-26.0); ABG O2 SATURATION 99.2 % (95.0-99.0); ABG PARTIAL PRESSURE O2 167.5 mmHg (75.0-100.0); ABG STANDARD HCO3 23.6 MEQ/L (22.0-26.0); ABG TOTAL CO2 23.5 MEQ/L (22.0-29.0); ABG pH (ARTERIAL) 7.438 UNITS (7.350-7.450)
[2019-04-09 06:48] LABS: HEMATOCRIT 38.1 % (36.0-47.0); HEMOGLOBIN 12.7 g/dl (12.0-15.5); MEAN CORPUSCULAR HEMOGLOBIN 30.1 pg (27.0-33.0); MEAN CORPUSCULAR HGB CONC 33.3 g/dl (32.0-36.5); MEAN CORPUSCULAR VOLUME 90.3 fl (80.0-96.0); PLATELET COUNT, AUTOMATED 173 10^3/uL (150-450); RED BLOOD COUNT 4.22 10^6/uL (4.00-5.40); WHITE BLOOD COUNT 27.4 10^3/uL (4.0-10.0)
[2019-04-09 07:00] LABS: INR 1.28; PROTHROMBIN TIME 15.7 SECONDS (11.8-14.0)
[2019-04-09 07:01] LABS: PARTIAL THROMBOPLASTIN TIME 34.3 SECONDS (25.0-38.4)
[2019-04-09 07:20] LABS: ALBUMIN 2.7 GM/DL (3.2-5.2); BILIRUBIN,TOTAL 0.4 MG/DL (0.2-1.0); CREATININE FOR GFR 1.55 MG/DL (0.55-1.30); MAGNESIUM LEVEL 2.2 MG/DL (1.8-2.4); PHOSPHORUS LEVEL 2.9 MG/DL (2.5-4.9); POTASSIUM SERUM 4.4 MEQ/L (3.5-5.1); TOTAL PROTEIN 5.5 GM/DL (6.4-8.2)
--- NOTE | 2019-04-09 07:20 | REP ---
Portable chest, 06:51 a.m., single AP view with the patient semi upright: Comparison is 04/08/2019 and there is a comparison chest CT dated 04/07/2019. The lung thornton are clear. Cardiac size is normal. The willi, mediastinum, skeletal structures are unremarkable. There is an endotracheal tube terminating satisfactorily above the brayan at the level of the aortic arch. There is a nasogastric tube terminating satisfactorily in the upper abdomen, the precise location of the distal tip is excluded at the inferior film margin. There is a right IJ central venous catheter with the tip in satisfactory position in the superior vena cava. Impression: No acute cardiopulmonary findings. Electronically Signed by Bong Cunha MD 04/09/2019 07:11 A
[2019-04-09] MEDS ORDERED: ASPIRIN 81 MG CHEW TABLET PEG SCH (09:00)
[2019-04-09] MEDS: ASPIRIN 81 MG CHEW TABLET FT SCH (09:33)
[2019-04-09] MEDS: raNITIdine SYRUP 150 MG/10 ML UDC NG SCH ×2 (09:33→20:36)
[2019-04-09] MEDS: LACRILUBE (AKWA TEARS) OPHTH OINT 3.5 GM OU SCH ×3 (09:33→20:36)
[2019-04-09] MEDS: VANCOMYCIN HCL 1,000 MG, VIAL MATE ADAPTER 1 EACH in D5W 250 ML IV SCH ×2 (09:33→20:47)
[2019-04-09] MEDS: CHLORHEXIDINE GLUCONATE 0.12 % 15ML UDC (PERIDEX ORAL RINSE) MT SCH ×2 (09:33→20:36)
[2019-04-09] MEDS ORDERED: EPINEPHrine INJ 1 MG/ML 1ML VIAL IM STA (10:45)
[2019-04-09] MEDS ORDERED: EPINEPHrine INJ 1 MG/ML 1ML VIAL As Ordered ONE (10:47)
[2019-04-09 10:49] LABS: ABG BASE EXCESS -2.8 (-2.0-2.0); ABG HCO3 20.9 MEQ/L (22.0-26.0); ABG O2 SATURATION 97.5 % (95.0-99.0); ABG STANDARD HCO3 22.1 MEQ/L (22.0-26.0); ABG TOTAL CO2 21.9 MEQ/L (22.0-29.0)
--- NOTE | 2019-04-09 10:49 | ECGEPIP ---
[facility] Test Date: 2019-04-08 Pat Name: WAQAS VINCENT Department: Room: [place] [address] Gender: Female Pawn Shop Keeper: EMPERATRIZ : 1965 Requested By: ARLET ONTIVEROS Order Number: [id number] Reading MD: Puma Nunez Measurements Intervals [place] Rate: 74 P: 73 [place]: 168 QRS: -50 QRSD: 84 T: 248 QT: 387 QTc: 432 Interpretive Statements SINUS RHYTHM MARKED LEFT AXIS DEVIATION . CONSIDER PRIOR OR RECENT INFERIOR WALL INFARCT LOW QRS VOLTAGE IN PRECORDIAL LEADS SEPTAL MYOCARDIAL INFARCTION, PROBABLY OLD MODERATE T-WAVE ABNORMALITY, CONSIDER LATERAL ISCHEMIA MODERATE T-WAVE ABNORMALITY, CONSIDER INFERIOR ISCHEMIA MOST RECENT TRACING ON 04/07/2019 AT 7:10 P.M. THERE WAS BETTER R-WAVE PROGRESSION Electronically Signed on 04-09-2019 10:49:30 EST by Puma Nunez
[2019-04-09] MEDS ORDERED: NOREPINEPHRINE 4 MG/4 ML AMP As Ordered ONE (10:52)
[2019-04-09 10:56] LABS: HEMATOCRIT 33.3 % (36.0-47.0); HEMOGLOBIN 11.2 g/dl (12.0-15.5); MEAN CORPUSCULAR HEMOGLOBIN 30.9 pg (27.0-33.0); MEAN CORPUSCULAR HGB CONC 33.6 g/dl (32.0-36.5); MEAN CORPUSCULAR VOLUME 91.7 fl (80.0-96.0); PLATELET COUNT, AUTOMATED 140 10^3/uL (150-450); RED BLOOD COUNT 3.63 10^6/uL (4.00-5.40); WHITE BLOOD COUNT 20.7 10^3/uL (4.0-10.0)
[2019-04-09] MEDS: diphenhydrAMINE INJ 50MG/ML VIAL (J1200) IV SCH ×2 (10:56→18:17)
[2019-04-09] MEDS: methylPREDNISolone INJ 40 MG/1 ML VIAL (J2920) IV SCH ×2 (10:56→18:17)
[2019-04-09] MEDS: NOREPINEPHRINE BITARTRATE 16 MG in D5W 484 ML IV SCH (11:00)
[2019-04-09 11:05] LABS: INR 1.27; PROTHROMBIN TIME 15.6 SECONDS (11.8-14.0)
[2019-04-09 11:26] LABS: ALBUMIN 2.4 GM/DL (3.2-5.2); BILIRUBIN,TOTAL 0.4 MG/DL (0.2-1.0); CALCIUM LEVEL 7.4 MG/DL (8.5-10.1); CREATININE FOR GFR 1.56 MG/DL (0.55-1.30); GLOMERULAR FILTRATION RATE 36.7 (>51); MAGNESIUM LEVEL 2.3 MG/DL (1.8-2.4); PHOSPHORUS LEVEL 2.8 MG/DL (2.5-4.9); POTASSIUM SERUM 4.1 MEQ/L (3.5-5.1); TOTAL PROTEIN 4.9 GM/DL (6.4-8.2)
[2019-04-09 12:17] LABS: TROPONIN I 1.97 NG/ML (< 0.10)
--- NOTE | 2019-04-09 13:15 | CCN ---
DATE: 04/09/2019 The patient was seen and examined this morning during bedside rounds. Yesterday in the late morning, the patient was receiving first dose of azithromycin when she was noted towards the end of the administration dose to have a sudden drop in her blood pressure. The patient was restarted on the Levophed as she had been off of pressors overnight and was also given doses of epinephrine IM for a possible anaphylactic reaction to the azithromycin. The patient's blood pressure improved with the pressors and with the epinephrine and she was able to be weaned off of the Levophed in the late evening. The patient completed the cooling portion of the hypothermia protocol and was restarted on the warming protocol overnight, which she has completed. She is in the maintenance phase of her temperature currently and being maintained at 37 degrees Celsius. The patient sedation was taken off this morning for assessment of her neurologic status. The patient has also been continued on continuous veno-venous hemodialysis (CVVHD) which was started yesterday by nephrology. This morning, she has had some slight increase in urine output when compared to previous. She was tolerating the CVVHD and maintaining her blood pressures off of the Levophed. Later this morning again, however, she had an episode of sudden drop in her blood pressure the systolic into the 70s and 60s. She was receiving her vancomycin infusion during that time. The patient was given IM epinephrine at 0.5 mg with no improvement in her blood pressure. She was started on Levophed again and her blood pressure improved. She has been able to be continued on CVVHD with the Levophed currently. PHYSICAL EXAMINATION: Temperature 98.6, pulse 83, respirations 27, blood pressure 153/83, O2 sat 100% on the vent at 40% FiO2. In 1.5 liters and out 216 mL. General: The patient is intubated, is off of sedation and is unresponsive to painful stimuli. HEENT: Normocephalic, atraumatic. Pupils are mildly dilated and unresponsive to light. There is no corneal reflex bilaterally. Neck is supple. Trachea is midline. No palpable adenopathy. There is no gag reflex. Cardiac: Regular rate and rhythm with a few PVCs. Normal S1, S2. Unable to appreciate any murmurs. Pulmonary: Some coarse ventilated breath sounds bilaterally, but no wheezing, rales or rhonchi. Abdomen is soft, nontender, nondistended. Extremities: There is no significant lower extremity edema bilaterally. There is no Babinski reflex bilaterally. Her right foot has some inducible myoclonic jerks. There is some decerebrate posturing noted. LABORATORY DATA: WBC 27.4, hemoglobin 12.7, platelets 173. Chemistry: Sodium is 140, potassium 4.4, chloride 108, bicarb 23, BUN 21, creatinine is 1.55, glucose is 145, lactic acid trending down to 3.8, calcium is 8.0, AST 258, ALT 81, procalcitonin 18.18. ABG this morning , pH was 7.438, pCO2 of 34.0 and pO2 of 167.5. MICROBIOLOGY: Blood cultures preliminary one bottle with gram-positive cocci in clusters. IMAGING STUDIES: Chest x-ray this morning shows endotracheal (ET) tube in good position. Orogastric (OG) tube in place below the diaphragm and right internal jugular (IJ) in place with the tip in superior vena cava (SVC). There are no focal opacities or pleural effusions. ASSESSMENT: Ms. Hong is a 53-year-old female with history of asthma, obstructive sleep apnea (GÓMEZ), allergic rhinitis, chronic sinusitis, gastroesophageal reflux disease (GERD), hypertension and anxiety who presented as an out of hospital cardiac arrest. The patient was started on antibiotics as an outpatient for possible pneumonia. She was given Avelox which she had previously taken with no reaction, although she does have an extensive history with reported anaphylaxis to other multiple antibiotics in the past. The patient took the first dose of her prescribed Avelox and a few minutes later started complaining of shortness of breath and difficulty breathing. She then became unresponsive and cardiopulmonary resuscitation (CPR) was started, initially by her , and after EMS arrival she was given epinephrine and continue with CPR with return of spontaneous circulation (ROSC) achieved after approximately 20 minutes. In the emergency department (ED), she did have another two episodes of pulselessness and required another two rounds of CPR before achieving ROSC again. Neurologic: The patient was unresponsive post cardiac arrest and so was started on the hypothermia protocol, which she has now completed. The patient completed the active rewarming phase and she is now in the maintenance phase. - Will continue maintaining her temperature at 37 degrees Celsius for 24 hours. - The patient's initial head CT showed evidence of some anoxic injury. She currently has no pupillary reflex, corneal reflex or gag reflex and is not withdrawing to painful stimuli. She does have some evidence of decerebrate posturing. The patient is having some agonal breaths over the set ventilator respiratory rate. I discussed with the patient's family that there is some concern about her neurologic prognosis and that it is likely poor at this time and that she likely does have significant anoxic injury. They are hopeful that she will have more neurologic recovery. We discussed repeating a head CT to see if there is any further evidence of anoxic injury on her head CT, but that clinically there is evidence that she does have significant anoxic injury and has a poor neurologic prognosis. - Will repeat head CT. - Will continue to hold sedation to continue to be able to assess her neurologic status. Cardiovascular: The patient presented as an out of hospital cardiac arrest. She has a history of hypertension, but no other history of coronary artery disease or heart failure. The patient was being treated for possible pneumonia as an outpatient, although on admission she did not have any leukocytosis or fever and her chest x-ray did not show any significant opacities or infiltrates to suggest pneumonia. Her CT scan on admission did have a few bilateral infiltrates, more in the periphery of the lungs, which was thought to be more due to her CPR and pulmonary contusions. Sepsis and septic shock was less likely a cause of her initial cardiac arrest. She does have a history of multiple drug allergies with reported reactions and anaphylaxis and suspect her arrest was due to anaphylactic reaction to her antibiotic. The patient's initial EKG also did not show any significant ST elevations consistent with a ST- elevation myocardial infarction (STEMI) and her initial troponins were negative. She then had some increased cardiac enzymes which were likely due to demand and from her initial cardiac arrest and CPR. Her echocardiogram did show evidence of a significantly reduced ejection fraction (EF) and possible Takotsubo cardiomyopathy which may have been due to her cardiac arrest and medications that were received. She did not have any evidence of a dilated right ventricle (RV) or RV volume overload to suggest a pulmonary embolism (PE). She was unable to get a CT angiogram on admission due to her renal function. - The patient was initially on Levophed, however, was able to be weaned off after a few hours of her admission which would support potential hypotension from anaphylaxis. Yesterday, she did also have another event when she was being administered azithromycin and again was requiring pressors for a few hours before being able to be weaned off again. - The patient has a right IJ triple lumen in place and a right femoral arterial line. She was maintaining her blood pressure off of Levophed overnight, but this morning again she had a another drop in her blood pressure when she was being administered the vancomycin. She was given epinephrine IM with no improvement and was restarted on the Levophed. The patient does have evidence of leukocytosis now and some of her hypotension may be in the setting of sepsis. She was given a 500 fluid bolus with no improvement in her blood pressure. She is in renal failure with minimal urine output and so we are being cautious about fluid administration. - The patient's troponins had been trending down, but with her recent hypotensive episode will repeat a troponin to see if there is any increase. She did have a significantly reduced EF, so there may be a component of cardiogenic shock as well. - Will continue with aspirin and continue to monitor her cardiac enzymes. - The patient was on Solu-Medrol 40 mg q.8 hours, which was discontinued. However, with her a possible repeat anaphylactic reaction, will restart the Solu-Medrol as well as the Benadryl and continue with her H2 ernesto. - Will followup her tryptase level which was added on to her initial labs to follow up the diagnosis of a possible anaphylactic reaction. Pulmonary: History of asthma and possible pneumonia as an outpatient. The patient's initial chest x-ray did not show any significant opacities and she did not have any significant wheezing on exam. Her initial chest CT showed very trace, barely perceptible right pneumothorax which was likely in the setting of her rib fractures from CPR. A repeat chest x-ray did not show appreciable pneumothorax. She did have a few bilateral scattered opacities ion the periphery of her lungs which were thought to be due to contusions from her multiple rounds of CPR. She does have increased leukocytosis and procalcitonin so there is a possible component of sepsis potentially from an aspiration event. The patient was continued with vancomycin and aztreonam and was started on azithromycin for atypicals, but had a possible anaphylactic reaction so that was discontinued. She may have had another reaction today to the vancomycin, but she has been receiving that previously with no ill effects. Will continue for now with the vancomycin and the aztreonam, but will follow up the methicillin-resistant Staphylococcus aureus (MRSA) screen and de-escalate antibiotics depending on the MRSA screen. - Continue with DuoNebs. - Continue mechanical ventilation with volume control. Will adjust settings as her metabolic and respiratory acidosis has improved. The patient will be changed to volume control with settings of 400/20/40 and 3. - Continue vent bundle care with head of bed elevation and chlorhexidine mouthwash. - Continue with daily chest x-rays and ABGs while intubated. Renal: The patient had acute renal failure in the setting of her cardiac arrest with possible acute tubular necrosis (ATN). She had an initial metabolic acidosis secondary to lactic acidosis with an additional respiratory acidosis. The patient was anuric and with increasing creatinine, renal was consulted and she was started on CVVHD yesterday, which she has been tolerating. The patient was to be kept at net zero fluid balance. - Will continue CVVHD as per renal and monitoring her renal function and electrolytes and replete as needed. If she is requiring increasing doses of pressors, however, her CVVHD may need to be held. - Will continue Bearden catheter. Monitor her ins and outs. She has had some slight increase in her urine output in the past 12 hours. - Appreciate renal consult and recommendations. GI: The patient had an OG tube placed on low intermittent suction and initially had some bloody output from her OG tube which appeared to resolve by the next day. She did have some mildly increased LFTs likely secondary to shock liver. - The patient was nothing by mouth (n.p.o.) while on hypothermia protocol. As she has completed hypothermia, will start her on trophic tube feeds and titrate up as tolerated. - Continue ranitidine for GI prophylaxis given her allergies to proton pump inhibitor (PPI). Heme: The patient has evidence of a decreasing hemoglobin. She has not had any further bloody output from her OG tube and her CT of abdomen and pelvis did not show any evidence of a retroperitoneal bleed. She has not had any melena. Suspect her hemoglobin is trending down due to her frequent blood draws and other interventions in the ICU. She does have some slight decrease in her platelets as well which is likely due to the CVVHD. - Will continue to monitor her hemoglobin. - Continue with heparin for deep vein thrombosis (DVT) prophylaxis. GI PROPHYLAXIS: Ranitidine. DEEP VEIN THROMBOSIS PROPHYLAXIS: Heparin. CODE STATUS: Full code. TOTAL CRITICAL CARE TIME SPENT NOT INCLUDING ANY PROCEDURES: Approximately 1 hour. LLOYD
[2019-04-09 18:18] LABS: IONIZED CALCIUM 4.2 MG/DL (4.5-5.3)
[2019-04-09 18:19] LABS: HEMATOCRIT 33.5 % (36.0-47.0); HEMOGLOBIN 11.5 g/dl (12.0-15.5); MEAN CORPUSCULAR HEMOGLOBIN 31.3 pg (27.0-33.0); MEAN CORPUSCULAR HGB CONC 34.3 g/dl (32.0-36.5); PLATELET COUNT, AUTOMATED 170 10^3/uL (150-450); RED BLOOD COUNT 3.68 10^6/uL (4.00-5.40); WHITE BLOOD COUNT 23.5 10^3/uL (4.0-10.0)
[2019-04-09] MEDS ORDERED: CALCIUM GLUCONATE 1,000MG/10ML VIAL (100MG/ML) (J0610) As Ordered ONE (18:42)
[2019-04-09] MEDS: propofoL 1,000 MG in IV 1 EA IV SCH (18:44)
[2019-04-09 18:50] LABS: CALCIUM LEVEL 7.5 MG/DL (8.5-10.1); CREATININE FOR GFR 1.62 MG/DL (0.55-1.30); GLOMERULAR FILTRATION RATE 35.1 (>51); MAGNESIUM LEVEL 2.4 MG/DL (1.8-2.4); PHOSPHORUS LEVEL 2.4 MG/DL (2.5-4.9); POTASSIUM SERUM 4.4 MEQ/L (3.5-5.1)
[2019-04-09] MEDS: CALCIUM GLUCONATE 1,000 MG in D5W MINI-BAG PLUS 100 ML IV SCH ×2 (18:55→20:34)
[2019-04-09] MEDS ORDERED: SODIUM PHOSPHATE INJ 15 MMOL in D5W 250 ML IV ONE (20:00)
--- NOTE | 2019-04-09 23:53 | REPVR ---
PROCEDURE INFORMATION: Exam: CT Head Without Contrast Exam date and time: 04/09/2019 11:40 PM Age: 53 years old Clinical indication: Condition or disease; Other: Cardiac arrest; Additional info: Cardiac arrest, possible anoxic injury TECHNIQUE: Imaging protocol: Computed tomography of the head without contrast. Radiation optimization: All CT scans at this facility use at least one of these dose optimization techniques: automated exposure control; mA and/or kV adjustment per patient size (includes targeted exams where dose is matched to clinical indication); or iterative reconstruction. COMPARISON: CT Head without contrast 04/07/2019 10:23 PM FINDINGS: Brain: There is global loss of perry-white matter differentiation with multiple areas of edema/infarction involving much of the left frontal lobe and posterior parietal lobes, worse on the left. Additional areas of infarction in the basal ganglia, worse on the right. Generalized cerebral edema with effacement of the sulci and cisterns. No midline shift. Ventricles: Normal. No ventriculomegaly. Bones/joints: Unremarkable. No acute fracture. Sinuses: Layering fluid in the left maxillary sinus. Remaining paranasal sinuses are clear. Mastoid air cells: Visualized mastoid air cells are well aerated. Soft tissues: Unremarkable. IMPRESSION: Diffuse anoxic injury with multiple areas of infarction and cerebral edema as above. Electronically signed by: Shade Morrissey On 04/09/2019 23:55:14 PM
[2019-04-10] VITALS (36 sets, daily range): BP systolic 83–140; BP diastolic 47–82; O2SAT 97–99
[2019-04-10] MEDS: NOREPINEPHRINE BITARTRATE 16 MG in D5W 484 ML IV SCH (01:11)
[2019-04-10] MEDS: methylPREDNISolone INJ 40 MG/1 ML VIAL (J2920) IV SCH ×2 (04:05→11:37)
[2019-04-10] MEDS: diphenhydrAMINE INJ 50MG/ML VIAL (J1200) IV SCH ×2 (04:06→11:38)
[2019-04-10] MEDS: HEPARIN SOD (PORCINE) 5000 UNITS/ML VIAL (J1644 PER 1000UNITS) SC SCH ×2 (05:50→14:16)
[2019-04-10 05:52] LABS: IONIZED CALCIUM 4.2 MG/DL (4.5-5.3)
[2019-04-10 05:57] LABS: BASO % 0.1 % (0.0-1.0); HEMOGLOBIN 9.9 g/dl (12.0-15.5); LYMPH # 1.3 10^3/uL (1.5-5.0); MEAN CORPUSCULAR HEMOGLOBIN 30.7 pg (27.0-33.0); MEAN CORPUSCULAR HGB CONC 34.1 g/dl (32.0-36.5); MEAN CORPUSCULAR VOLUME 90.1 fl (80.0-96.0); MONO # 0.7 10^3/uL (0.0-0.8); MONO % 3.8 % (0.0-5.0); NEUTROPHILS # 16.6 10^3/uL (1.5-8.5); NEUTROPHILS % 87.8 % (36.0-66.0); PLATELET COUNT, AUTOMATED 132 10^3/uL (150-450); RED BLOOD COUNT 3.22 10^6/uL (4.00-5.40); WHITE BLOOD COUNT 18.9 10^3/uL (4.0-10.0)
[2019-04-10 05:58] LABS: ABG HCO3 21.1 MEQ/L (22.0-26.0); ABG PARTIAL PRESSURE CO2 26.2 mmHg (35.0-45.0); ABG PARTIAL PRESSURE O2 109.9 mmHg (75.0-100.0); ABG STANDARD HCO3 23.6 MEQ/L (22.0-26.0); ABG TOTAL CO2 21.9 MEQ/L (22.0-29.0); ABG pH (ARTERIAL) 7.523 UNITS (7.350-7.450)
[2019-04-10] MEDS: AZTREONAM 2 GM in D5W MINI-BAG PLUS 50 ML IV SCH ×2 (06:21→15:08)
[2019-04-10 06:33] LABS: ALBUMIN 2.2 GM/DL (3.2-5.2); BILIRUBIN,TOTAL 0.4 MG/DL (0.2-1.0); CALCIUM LEVEL 7.3 MG/DL (8.5-10.1); CREATININE FOR GFR 1.58 MG/DL (0.55-1.30); GLOMERULAR FILTRATION RATE 36.1 (>51); MAGNESIUM LEVEL 2.4 MG/DL (1.8-2.4); PHOSPHORUS LEVEL 2.1 MG/DL (2.5-4.9); POTASSIUM SERUM 4.1 MEQ/L (3.5-5.1); TOTAL PROTEIN 4.9 GM/DL (6.4-8.2); VANCOMYCIN RANDOM 22.2 UG/ML
[2019-04-10] MEDS: CALCIUM GLUCONATE 1,000 MG in D5W MINI-BAG PLUS 100 ML IV SCH ×2 (06:57→08:15)
--- NOTE | 2019-04-10 07:32 | REP ---
Portable chest, 07:09 a.m., single AP view with the patient semi upright: Comparison is 04/09/2019. Lung thornton are clear. Cardiac size is normal. The willi, mediastinum, skeletal structures are unremarkable. The endotracheal tube, nasogastric tube and right IJ central venous catheter remain in satisfactory positions, unchanged. Impression: There is no interval change. Electronically Signed by Bong Cunha MD 04/10/2019 07:24 A
[2019-04-10] MEDS ORDERED: SODIUM PHOSPHATE INJ 15 MMOL in D5W 250 ML IV ONE (08:00)
[2019-04-10] MEDS: CHLORHEXIDINE GLUCONATE 0.12 % 15ML UDC (PERIDEX ORAL RINSE) MT SCH (08:13)
[2019-04-10] MEDS: raNITIdine SYRUP 150 MG/10 ML UDC NG SCH (08:14)
[2019-04-10] MEDS: ASPIRIN 81 MG CHEW TABLET FT SCH (08:14)
[2019-04-10] MEDS: LACRILUBE (AKWA TEARS) OPHTH OINT 3.5 GM OU SCH (08:15)
[2019-04-10] MEDS ORDERED: VANCOMYCIN HCL 750 MG, VIAL MATE ADAPTER 1 EACH in D5W 250 ML IV SCH (09:00)
[2019-04-10] MEDS ORDERED: SODIUM PHOSPHATE INJ 30 MMOL in D5W 500 ML IV ONE (09:00)
[2019-04-10 09:26] LABS: ABG BASE EXCESS 1.1 (-2.0-2.0); ABG HCO3 26.4 MEQ/L (22.0-26.0); ABG O2 SATURATION 97.4 % (95.0-99.0); ABG PARTIAL PRESSURE CO2 45.1 mmHg (35.0-45.0); ABG PARTIAL PRESSURE O2 106.9 mmHg (75.0-100.0); ABG STANDARD HCO3 25.5 MEQ/L (22.0-26.0); ABG TOTAL CO2 27.8 MEQ/L (22.0-29.0); ABG pH (ARTERIAL) 7.386 UNITS (7.350-7.450)
[2019-04-10 11:08] LABS: ABG BASE EXCESS 2.2 (-2.0-2.0); ABG HCO3 27.2 MEQ/L (22.0-26.0); ABG MODE OF VENT AC; ABG O2 SATURATION 99.5 % (95.0-99.0); ABG PARTIAL PRESSURE CO2 44.4 mmHg (35.0-45.0); ABG PARTIAL PRESSURE O2 352.1 mmHg (75.0-100.0); ABG PATIENT RESP RATE 16 /MIN; ABG STANDARD HCO3 26.4 MEQ/L (22.0-26.0); ABG TIDAL VOLUME 400 cc; ABG TOTAL CO2 28.6 MEQ/L (22.0-29.0); ABG pH (ARTERIAL) 7.405 UNITS (7.350-7.450)
--- NOTE | 2019-04-10 11:16 | CCN ---
DATE: 04/10/2019 The patient was seen and examined this morning during bedside rounds. Overnight, the patient was able to be weaned down from the Levophed to 3 mcg/min. She was continued on continuous veno-venous hemodialysis (CVVHD) with no fluid removal, which she has been tolerating. The patient was maintained in the maintenance phase with a temperature of 37 degrees Celsius for 24 hours which she completed early this morning at 4:00 a.m. The patient did have a repeat head CT done yesterday evening. PHYSICAL EXAMINATION: Temperature 98.6, pulse 75, respirations 20, blood pressure 111/65, O2 sat 98% on 40% FiO2. Ins 2.4 liters. out 447 mL. General: The patient is intubated. She is not on sedation and is unresponsive to any painful stimuli. HEENT: Normocephalic, atraumatic. Pupils are dilated at 5-5.5 mm and unresponsive to light. There is no corneal reflex bilaterally. Neck is supple. Trachea is midline. There is no palpable adenopathy. There is no gag or cough reflex. Cardiac: Regular rate and rhythm with a few PVCs. Normal S1, S2. Unable to appreciate murmurs. Pulmonary: Coarse ventilated breath sounds bilaterally, but no wheezing, rales or rhonchi. Abdomen is soft, nontender, nondistended. Extremities: There is no lower extremity edema bilaterally. There is no movement in the lower extremities or any noxious stimuli. There is no Babinski reflex bilaterally. Her right foot has some inducible clonus. Neurologic Examination: The patient has no pupillary reflex. No corneal reflex. She has no oculocephalic reflex and no oculovestibular reflex. She has no facial movements to any noxious stimuli at the supraorbital nerve or the temporomandibular joint. Her gag and cough reflex to suctioning is absent. The patient also has no motor response to noxious stimuli in all four limbs. On the ventilator, the patient's respiratory rate was dropped to 5 breaths per minute and she had no additional respirations noted. LABORATORY DATA: WBC 18.9, hemoglobin 9.9, platelets 132. Chemistry: Sodium is 138, potassium 4.1, chloride is 106, bicarb 26, BUN 19, creatinine is 1.58, glucose is 143. ABG: pH is 7.523, pCO2 of 26.2 and pO2 of 109.9. AST and ALT trended down to 97 and 54. Peak troponins had trended down to 1.97. PTT was 30.7. MICROBIOLOGY: Blood culture one bottle grew Staphylococcus epidermitis. Methicillin-resistant Staphylococcus aureus (MRSA) screen was negative. IMAGING STUDIES: CT head showed diffuse anoxic injury in multiple areas with infarction and edema as well as generalized cerebral edema. Chest x-ray this morning shows endotracheal tube (ET) tube and orogastric tube (OG) tube in good position. Right internal jugular (IJ) with the tip in the superior vena cava (SVC). There is no focal opacities or pleural effusions noted. ASSESSMENT: Ms. Hong is a 53-year-old female history of asthma, obstructive sleep apnea (GÓMEZ), allergic rhinitis and chronic sinusitis, gastroesophageal reflux disease (GERD), hypertension, and anxiety who presented as an out of hospital cardiac arrest. The patient was started on Avelox for possible pneumonia as an outpatient. She took her first dose of the Avelox and a few minutes later started complaining of shortness of breath and difficulty breathing. 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 The patient then became unresponsive and cardiopulmonary resuscitation (CPR) was started initially by her with just chest compressions for approximately 10 minutes. Emergency medical service (EMS) arrived and she had additional CPR with epinephrine and had return of spontaneous circulation (ROSC) achieved after a total of approximately 20 minutes. In the emergency department (ED), however, she had two other episodes of pulselessness and required another two rounds of CPR before achieving ROSC and a blood pressure. Neurologic: The patient was unresponsive post cardiac arrest and was started on hypothermia protocol which she has since completed. She has also completed the 24-hour maintenance phase of 37 degrees Celsius early this morning at 4:00 a.m. - The patient's initial head CT had shown some evidence of anoxic injury. Her repeat head CT showed worsening anoxic injury diffusely with multiple areas of infarction and edema as well as generalized cerebral edema. Initially, the patient had some agonal breaths additionally over the ventilator set rate and so did not meet brain criteria. This morning, however, she has no brain stem reflexes that were elicited and is not triggering any additional breaths over the ventilator even when set to a respiratory rate of 5. The patient has not been on any sedation for more than 24 hours and she was never given any paralytic. She does not have any significant acid base disorder at this time and she has been maintained normothermic and her blood pressure has been maintained with a MAP above 65 with a low dose of Levophed. - Discussed with the patient's today that the patient meets criteria this morning for brain with the absence of her brain stem reflexes and with no spontaneous respirations. She also has the worsening anoxic injury noted on her head CT. Will consult neurology for a second physician confirmation of her neurologic examination. If she does continue to meet criteria based on his examination for brain , then we discussed with the family that we will proceed with brain testing with the apnea test. Cardiovascular: The patient presented as an out of hospital cardiac arrest. The patient was suspected to have cardiac arrest, possibly secondary to an anaphylactic reaction based on her previous history of anaphylaxis to multiple antibiotics and that her symptoms started after her first dose of Avelox. An acute coronary event was less likely as initial cause as her electrocardiogram (EKG) did not show any significant ST elevations or depressions and her initial cardiac enzymes were negative. The patient did have positive enzymes after her arrest which were likely secondary to her arrest and her CPR. Her echocardiogram did show evidence of significantly reduced ejection fraction (EF) and possible Takotsubo cardiomyopathy which was likely in the setting of her cardiac arrest and the medications that were received and also possibly from the anaphylaxis. Sepsis and septic shock was less likely the initial cause of her cardiac arrest as she did not have any leukocytosis on admission and her initial imaging of her chest, abdomen and pelvis did not show any significant focal findings. Pulmonary embolism (PE) was a possibility; however, her echo did not show any signs of significant right ventricle (RV) strain, which would be expected with a pulmonary embolism that was significant enough to cause cardiac arrest. - The patient was initially weaned off of Levophed. However, she had a possible reaction to azithromycin and was given epinephrine as well as restarted on Levophed. She was again able to be weaned off of Levophed after that, however, yesterday morning again had another episode of hypotension requiring administration of pressors as well as additional dose of epinephrine. Overnight, she has since been able to be weaned down on the Levophed to just a low-dose currently. She was weaned from 3 to 2 mcg/min earlier this morning and has been maintaining MAPs above 65. - Continue with Levophed for vasopressor support to maintain a MAP above 65. - The patient has a right IJ triple lumen in place and a right femoral A line for blood pressure monitoring. - The patient's troponins have continued to trend down. - Will continue with aspirin. - Continue with Solu-Medrol 40 mg q. 8 with a tapering dose. - Continue with Benadryl and H2 ernesto. - Will followup her initial tryptase levels which were added on to her labs upon admission to the ED. Pulmonary: History of asthma and possible pneumonia as an outpatient. Her initial chest x-ray did not show any significant opacities and she did not have any significant wheezing on exam to suggest an asthma exacerbation. Her initial chest CT showed very barely perceptible right pneumothorax which was likely in the setting of rib fractures from her CPR. She did also have a few bilateral scattered opacities in the periphery of her lungs which were thought to be due to contusions from her multiple rounds of CPR. She did have some increased leukocytosis and procalcitonin, although this may have been in the setting of her cardiac arrest. She was started on broad-spectrum antibiotics with vancomycin and aztreonam. Initially, she was on azithromycin which was discontinued for possible anaphylactic reaction. - The patient's blood culture was positive for Staph epidermidis, which is likely contaminant. Her methicillin-resistant Staphylococcus aureus (MRSA) screen was negative and would consider de-escalating her antibiotics. However, she has multiple drug allergies, including to penicillin, sulfa, cephalexin, doxycycline and for quinolones. Therefore, would continue with the vancomycin for gram-positive coverage for now and continued to the aztreonam for gram-negative coverage. Her white count is trending down. - Continue with DuoNebs. - Continue with mechanical ventilation with volume control. Her ABG this morning showed some respiratory alkalosis and so will adjust the vent settings to 400/14/40/3 and repeat ABG in 1 hour. Will maintain the patient at a normal capneic ABG. - Continue vent bundle care with head of bed elevation and chlorhexidine mouthwash. - Continue with daily chest x-rays and ABGs while intubated. Renal: Patient with acute renal failure in the setting of a cardiac arrest with possible acute tubular necrosis (ATN). She initially had a metabolic acidosis secondary to lactic acidosis with additional respiratory acidosis which has since been corrected. The patient is on CVVHD as per renal which she has been tolerating with no fluid removal. - Continue with CVVHD as per renal and will attempt to keep the patient net even now if her blood pressure tolerates. - Continue monitoring electrolytes and repletion as needed. She has no significant acid base disorder. - Continue Bearden catheter. Monitor ins and outs. She has continued to have some slight increase in her urine output in the past 24 hours. GI: The patient had initial transaminitis secondary to shock liver which has since trended down. - The patient has an OG tube which initially was on low wall intermittent suction and she did have some bloody output initially which appeared to have resolved. She was started on trophic tube feeds yesterday, which we will continue. - Continue ranitidine for GI prophylaxis given her allergies to proton pump inhibitor (PPI). Heme: The patient has decreasing hemoglobin. She does not have any evidence of overt bleed and so suspect it may be in the setting of her frequent blood draws and other interventions in the intensive care unit (ICU). Will continue monitor her hemoglobin/hematocrit (H/H). Will get an active type and screen. - Continue with heparin for deep vein thrombosis (DVT) prophylaxis. GI PROPHYLAXIS: Ranitidine DEEP VEIN THROMBOSIS PROPHYLAXIS: Heparin. CODE STATUS: Full code. TOTAL CRITICAL CARE TIME SPENT: Not including any procedures approximately 45 minutes. MTDD
[2019-04-10 11:20] LABS: ABG BASE EXCESS 1.1 (-2.0-2.0); ABG O2 SATURATION 99.6 % (95.0-99.0); ABG PARTIAL PRESSURE O2 372.2 mmHg (75.0-100.0); ABG STANDARD HCO3 25.5 MEQ/L (22.0-26.0); ABG TOTAL CO2 31.1 MEQ/L (22.0-29.0); ABG pH (ARTERIAL) 7.264 UNITS (7.350-7.450)
[2019-04-10 11:23] LABS: ABG PARTIAL PRESSURE CO2 65.6 mmHg (35.0-45.0)
[2019-04-10 11:29] LABS: ABG BASE EXCESS 1.4 (-2.0-2.0); ABG HCO3 30.1 MEQ/L (22.0-26.0); ABG O2 SATURATION 99.7 % (95.0-99.0); ABG PARTIAL PRESSURE O2 343.8 mmHg (75.0-100.0); ABG STANDARD HCO3 25.8 MEQ/L (22.0-26.0); ABG TOTAL CO2 32.3 MEQ/L (22.0-29.0)
[2019-04-10 11:31] LABS: ABG PARTIAL PRESSURE CO2 72.5 mmHg (35.0-45.0); ABG pH (ARTERIAL) 7.236 UNITS (7.350-7.450)
--- NOTE | 2019-04-10 12:13 | DS.PDOC ---
Discharge Summary General Date of Admission Apr 07, 2019 at 20:42 Date of Discharge 04/10/2019 at 11:19AM Primary Care Physician: Rigo Stahl M.D. Attending Physician: ARLET ONTIVEROS MD Discharge Summary PROCEDURES PERFORMED DURING STAY: RIJ triple lumen catheter central line placement. Right femoral arterial line. Left femoral hemodialysis catheter ADMITTING DIAGNOSES: 1. Cardiac arrest 2. Shock 3. Acute renal failure 4. Stress cardiomyopathy and demand ischemia 5. Sepsis, possible pneumonia DISCHARGE DIAGNOSES: 1. Diffuse anoxic brain injury and multi-focal cerebral infarction 2. Brain COMPLICATIONS/CHIEF COMPLAINT: Cardiac Arrest. HISTORY OF PRESENT ILLNESS: Ms. Hong is a 53-year-old female with a past medical history of hypertension, gastroesophageal reflux disease (GERD), asthma, obstructive sleep apnea (GÓMEZ) - on continuous positive airway pressure (CPAP), history of pancreatic insufficiency, allergic rhinitis and chronic sinusitis who presented with cardiac arrest. History was obtained from the patient's family and from the emergency department (ED) staff as the patient was intubated and unable to provide a history. As per patient's family, the patient had complained of symptoms of increasing cough and some shortness of breath. She was diagnosed with possible pneumonia as an outpatient and was ordered a prescription of Avelox, which she had previously taken in the past. The patient does have a history of multiple allergies to various antibiotics including levofloxacin. Her allergies to penicillin, cephalexin and doxycycline are with anaphylaxis and angioedema. The patient apparently has taken Avelox in the past before with no significant reaction. Today, the patient's family stated she took her first dose of the antibiotic that she was just prescribed and then 5 minutes later, after going to the bathroom, came out stating she was short of breath and having difficulty breathing. The patient became unresponsive in front of the who then laid her on the floor. 9--1 was called and he was advised to start chest compressions, which he did. After approximately 10 minutes or so, emergency medical services (EMS) arrived and started advanced cardiovascular life support (ACLS). She received reportedly two amps of epi with cardiopulmonary resuscitation (CPR) and then achieved return of spontaneous circulation (ROSC). Total down time was approximately 20 minutes before ROSC was achieved. When the patient initially presented to the ED, she was intubated and did have a blood pressure and pulse. In the ED, however, she became bradycardic and then lost her pulse briefly and had a another round of CPR where she received epinephrine and bicarb. The patient regained her pulse again; however, a few minutes later again became more hypotensive and was unable to clearly palpate a pulse. She was given additional amps of bicarb and another epinephrine with a brief round of CPR when she regained her pulse again. The patient was then started on Levophed peripherally and did have a sustained blood pressure at that time. After her arrest, on her initial arrival to the ED she was unresponsive. She had very sluggish pupillary reflexes and initially was overbreathing on the ventilator. After her repeated episodes CPR, she was not noted to have significant pupillary reflexes and was not overbreathing on the ventilator. In the ED, the patient was also given 1 liter normal saline bolus. HOSPITAL COURSE: Patient was unresponsive post cardiac arrest with GCS of less than 8. She was placed on hypothermia protocol which she completed as well as the active rewarming phase and the 24hr maintenance temp phase at 37 degrees Celsius. The patient was suspected to have cardiac arrest, possibly secondary to anaphylactic reaction based on her previous history of anaphylaxis to multiple antibiotics and that her symptoms started after her first dose of Avelox. An acute coronary event was less likely as initial cause as her electrocardiogram (EKG) did not show any significant ST elevations or depressions and her initial cardiac enzymes were negative. The patient did have positive enzymes after her arrest which were likely secondary to her arrest and multiple rounds of CPR. Initial ECHO showed significantly reduced ejection fraction (EF) and possible Takotsubo cardiomyopathy which was likely in the setting of her cardiac arrest and the medications that were received and also possibly from the anaphylaxis. Sepsis and septic shock was less likely the initial cause of her cardiac arrest as she did not have any leukocytosis on admission and her initial imaging of her chest, abdomen and pelvis did not show any significant focal findings. Pulmonary embolism (PE) was a possibility; however, her echo did not show any signs of significant right ventricle (RV) strain, which would be expected with a pulmonary embolism that was significant enough to cause cardiac arrest. Patient did require levophed initially but was able to be weaned off after a few hours. However, she had a possible reaction to azithromycin and was given epinephrine IM and restarted on Levophed. She was again able to be weaned off of Levophed after that, however, yesterday morning again had another episode of hypotension requiring administration of pressors as well as additional dose of epinephrine. Overnight, she has since been able to be weaned down on the Levophed to just a low-dose currently at 2 mcg/min earlier this morning and has been maintaining MAPs above 65. Patient was also started on aspirin initially. She was also given solumedrol for her possible anaphylactic shock and for possible adrenal insufficiency at 40mg q8H. She was also given benadryl and H2 ernesto also for anaphylaxis. Patient was being treated as outpatient for possible pneumonia. Her initial CT chest showed very barely perceptible right pneumothorax which was likely in the setting of rib fractures from her CPR. She did also have a few bilateral scattered opacities in the periphery of her lungs which were thought to be due to contusions from her multiple rounds of CPR. She did have some increased leukocytosis and procalcitonin, although this may have been in the setting of her cardiac arrest. She was started on broad-spectrum antibiotics with vancomycin and aztreonam given her penicillin and cephalosporin allergy. Initially, she was on azithromycin which was discontinued for possible anaphylactic reaction. The patient's blood culture was positive for Staph epidermidis, which is likely contaminant. Her methicillin-resistant Staphylococcus aureus (MRSA) screen was negative and would consider de-escalating her antibiotics. However, she has multiple drug allergies, including to penicillin, sulfa, cephalexin, doxycycline and for quinolones. Patient was also in acute renal failure likely due to her cardiac arrest with possible ATN. She was oliguric and had metabolic acidosis and so was started on CVVHD by nephrology. The patient's initial head CT had shown some evidence of anoxic injury. Her repeat head CT showed worsening anoxic injury diffusely with multiple areas of infarction and edema as well as generalized cerebral edema. Initially, the patient had some agonal breaths additionally over the ventilator set rate and so did not meet brain criteria. This morning, however, she has no brain stem reflexes that were elicited and is not triggering any additional breaths over the ventilator even when set to a respiratory rate of 5. The patient has not been on any sedation for more than 24 hours and she was never given any paralytic. She does not have any significant acid base disorder at this time and she has been maintained normothermic and her blood pressure has been maintained with a MAP above 65 with a low dose of Levophed. Discussed with the patient's today that the patient meets criteria this morning for brain with the absence of her brain stem reflexes and with no spontaneous respirations. She also has the worsening anoxic injury noted on her head CT. Neurology was consulted and based on their examination patient met brain criteria. She had confirmatory apneic testing done which confirmed the diagnosis of brain (see separate note) and patient was declared on 04/10/2019 at 11:19AM. DISCHARGE MEDICATIONS: Please see below. ALLERGIES: Please see below. PHYSICAL EXAMINATION ON DISCHARGE: VITAL SIGNS: Please see below. General: The patient is intubated. She is not on sedation and is unresponsive to any painful stimuli. HEENT: Normocephalic, atraumatic. Pupils are dilated at 5mm and unresponsive to light. There is no corneal reflex bilaterally. Neck is supple. Trachea is midline. There is no palpable adenopathy. There is no gag or cough reflex. Cardiac: Regular rate and rhythm with a few PVCs. Normal S1, S2. Unable to appreciate murmurs. Pulmonary: Coarse ventilated breath sounds bilaterally, but no wheezing, rales or rhonchi. Abdomen is soft, nontender, nondistended. Extremities: There is no lower extremity edema bilaterally. There is no movement in the lower extremities or any noxious stimuli. There is no Babinski reflex bilaterally. Her right foot has some inducible clonus. Neurologic Examination: The patient has no pupillary reflex. No corneal reflex. She has no oculocephalic reflex and no oculovestibular reflex. She has no facial movements to any noxious stimuli at the supraorbital nerve or the temporomandibular joint. Her gag and cough reflex to suctioning is absent. The patient also has no motor response to noxious stimuli in all four limbs. On the ventilator, the patient's respiratory rate was dropped to 5 breaths per minute and she had no additional respirations noted. LABORATORY DATA: Please see below. IMAGING: CT head 04/10/2019 showed diffuse anoxic injury in multiple areas with infarction and edema as well as generalized cerebral edema. Chest x-ray 04/10/2019 shows endotracheal tube (ET) tube and orogastric tube (OG) tube in good position. Right internal jugular (IJ) with the tip in the superior vena cava (SVC). There is no focal opacities or pleural effusions noted. DIET: None DISPOSITION: DISCHARGE INSTRUCTIONS: 1. , patient's family consented to organ donation DISCHARGE CONDITION: Care transferred to organ donation team TIME SPENT ON DISCHARGE: Greater than 35 minutes. Vital Signs/I&Os Vital Signs Date Time Temp Pulse Resp B/P (MAP) Pulse Ox O2 Delivery O2 Flow Rate FiO2 04/10/19 10:00 98.6 89 14 125/68 (78) 98 101/65 (78) 04/10/19 10:00 40 04/10/19 07:00 Ventilator 04/07/19 21:19 70.0 I&O- Last 24 Hours up to 6 AM 04/10/19 06:00 Intake Total 2494.72 ml Output Total 545 ml Balance 1949.72 ml Laboratory Data Labs 24H Laboratory Tests 2 04/09/19 12:34: Methicillin-Resist S.aureus DNA PCR NOT DETECTED 04/09/19 17:56: Activated Partial Thromboplast Time 27.8, Anion Gap 6L, Glomerular Filtration Rate 35.1L, Calcium Level 7.5L, Whole Blood Ionized Calcium 4.2L, Phosphorus Level 2.4L, Magnesium Level 2.4 04/09/19 17:57: Nucleated Red Blood Cells % (auto) 0.0 04/09/19 18:03: Bedside Glucose (Misc Panel) 179H 04/10/19 05:47: Immature Granulocyte % (Auto) 1.3, Neutrophils (%) (Auto) 87.8H, Lymphocytes (%) (Auto) 7.0L, Monocytes (%) (Auto) 3.8, Eosinophils (%) (Auto) 0.0, Basophils (%) (Auto) 0.1, Neutrophils # (Auto) 16.6H, Lymphocytes # (Auto) 1.3L, Monocytes # (Auto) 0.7, Eosinophils # (Auto) 0.0, Basophils # (Auto) 0.0, Nucleated Red Blood Cells % (auto) 0.0, Activated Partial Thromboplast Time 30.7, Anion Gap 6L, Glomerular Filtration Rate 36.1L, Calcium Level 7.3L, Whole Blood Ionized Calcium 4.2L, Phosphorus Level 2.1L, Magnesium Level 2.4, Total Bilirubin 0.4, Aspartate Amino Transf (AST/SGOT) 97H, Alanine Aminotransferase (ALT/SGPT) 54, Alkaline Phosphatase 58, Total Protein 4.9L, Albumin 2.2L, Albumin/Globulin Ratio 0.81L, Random Vancomycin Level 22.2 04/10/19 05:52: Blood Gas Bicarbonate Standard 23.6, Arterial Blood pH 7.523H, Arterial Blood Partial Pressure CO2 26.2L, Arterial Blood Partial Pressure O2 109.9H, Arterial Blood Total CO2 21.9L, Arterial Blood HCO3 21.1L, Arterial Blood Base Excess -1 .0, Arterial Blood Oxygen Saturation 98.0 04/10/19 09:17: Blood Gas Bicarbonate Standard 25.5, Arterial Blood pH 7.386, Arterial Blood Partial Pressure CO2 45.1H, Arterial Blood Partial Pressure O2 106.9H, Arterial Blood Total CO2 27.8, Arterial Blood HCO3 26.4H, Arterial Blood Base Excess 1.1, Arterial Blood Oxygen Saturation 97.4 04/10/19 10:59: Blood Gas Bicarbonate Standard 26.4H, Arterial Blood pH 7.405, Arterial Blood Partial Pressure CO2 44.4, Arterial Blood Partial Pressure O2 352.1H, Arterial Blood Total CO2 28.6, Arterial Blood HCO3 27.2H, Arterial Blood Base Excess 2.2H, Arterial Blood Oxygen Saturation 99.5H, Arterial Blood Gas Vent Mode AC, Arterial Blood Gas Tidal Volume 400, Arterial Blood Gas Respiration Rate 16, Arterial Blood Gas Liter Flow .40, Arterial Blood Gas PEEP +10, Oxygen Delivery Device MECHAN. VENT 04/10/19 11:15: Blood Gas Bicarbonate Standard 25.5, Arterial Blood pH 7.264L, Arterial Blood Partial Pressure CO2 65.6*H, Arterial Blood Partial Pressure O2 372.2H, Arterial Blood Total CO2 31.1H, Arterial Blood HCO3 29.0H, Arterial Blood Base Excess 1.1, Arterial Blood Oxygen Saturation 99.6H 04/10/19 11:19: Blood Gas Bicarbonate Standard 25.8, Arterial Blood pH 7.236*L, Arterial Blood Partial Pressure CO2 72.5*H, Arterial Blood Partial Pressure O2 343.8H, Arterial Blood Total CO2 32.3H, Arterial Blood HCO3 30.1H, Arterial Blood Base Excess 1.4, Arterial Blood Oxygen Saturation 99.7H CBC/BMP Laboratory Tests 04/09/19 17:56 04/09/19 17:57 04/10/19 05:47 FSBS Laboratory Tests Test 04/09/19 18:03 Range/Units Bedside Glucose (Misc Panel) 179 70-105 MG/DL Microbiology Microbiology 04/09/19 Gram Stain - Final, Resulted 04/09/19 Sputum Culture, Resulted Pending 04/08/19 Urine Culture - Final, Complete 04/07/19 Blood Culture - Final, Complete Staphylococcus Epidermidis Discharge Medications Scheduled Ascorbic Acid (Vitamin C) 500 Mg Tab, 500 MG PO DAILY, (Reported) Aspirin (Aspirin EC) 81 Mg Tablet.dr, 81 MG PO DAILY, (Reported) Bupropion HCl (Wellbutrin Sr) 200 Mg Tab, 200 MG PO DAILY, (Reported) Carvedilol (Carvedilol) 6.25 Mg Tablet, 6.25 MG PO BID, (Reported) Cyanocobalamin (Vitamin B-12) (Vitamin B-12) 1,000 Mcg Tab, 1,000 MCG PO DAILY, (Reported) Moxifloxacin HCl (Moxifloxacin HCl) 400 Mg Tablet, 400 MG PO DAILY, (Reported) Scheduled PRN Albuterol Sulf (Albuterol Sulfate) 2.5 Mg/3 Ml Nebu, 1 VIAL NEB Q4H PRN for wheezing, (Reported) Albuterol Sulfate (Proair Hfa) 108 Mcg/Act Aer, 2 PUFF INH Q4H PRN for wheezing, (Reported) Lorazepam (Lorazepam) 0.5 Mg Tablet, 0.5 MG PO DAILY PRN for ANXIETY, (Reported) Use sublingually if unable to swallow Allergies Coded Allergies: Penicillins (Verified Allergy, Severe, SWELLING, BREATHING PROBLEMS, 04/07/19) cephalexin (Verified Allergy, Severe, ANAPHYLAXIS, 04/07/19) doxycycline (Verified Allergy, Severe, HIVES, ANGIOEDEMA, 04/07/19) moxifloxacin (Verified Allergy, Severe, ANAPHYLAXIS, 04/09/19) Sulfa (Sulfonamide Antibiotics) (Verified Allergy, Intermediate, RASH, 04/07/19) azithromycin (Verified Adverse Reaction, Intermediate, HYPOTENSION, 04/08/19) levofloxacin (Verified Adverse Reaction, Intermediate, N/V, 04/07/19) omeprazole (Verified Adverse Reaction, Mild, ABDOMINAL BLOATING, 04/07/19) pantoprazole (Verified Adverse Reaction, Mild, HEADACHE, 04/07/19) ARLET ONTIVEROS MD Apr 10, 2019 12:13
--- NOTE | 2019-04-10 13:42 | IPNPDOC ---
Text Note Date of Service The patient was seen on 04/10/19. NOTE Apnea Testing: Patient met criteria for brain testing as documented on determination of brain form and as per critical care progress note and Neurology consult from earlier today (please see those documentation for more detail). Apnea testing was then performed. Patient was on continues potline monitor with continuous pulse oximeter and arterial blood pressure tracing/monitor. Respiratory therapist, RN and critical care physician at bedside. Patient's core temp was documented at 37.1 degrees Celsius with a MAP above 65 mmHg and SBP above 100mmHg. Her baseline ABG showed normocarbia on the ventilator. She was preoxygenated with 100%FiO2 on the ventilator for 10 minutes. Patient was disconnected from the ventilator and administered supplemental oxygen via c atheter at 10L/min. She was observed for 8 minutes with no evidence of respiratory movements. ABG was drawn at 4 minutes and at 8 minutes at the end of the apnea test. Patient was hemodynamically stable during the test and O2 sats remained at 100%. The 4 minute ABG showed PaCO2 of 65.6 and the 8 minute PaCO2 was 72.5 Apnea test results confirmed brain and patient was declared at 11 :19AM 04/10/2019. Patient's next of kin was notified of the results. Organ Donor [employer] sales representative was also notified VS,Vane, I+O VS, Vane, I+O Laboratory Tests 04/09/19 17:56 04/09/19 17:57 04/10/19 05:47 Vital Signs Date Time Temp Pulse Resp B/P (MAP) Pulse Ox O2 Delivery O2 Flow Rate FiO2 04/10/19 13:00 97.5 72 20 120/71 (77) 99 Ventilator 96/65 (77) 04/10/19 12:00 40 04/07/19 21:19 70.0 I&O- Last 24 Hours up to 6 AM 04/10/19 06:00 Intake Total 2494.72 ml Output Total 545 ml Balance 1949.72 ml ARLET ONTIVEROS MD Apr 10, 2019 13:42
--- NOTE | 2019-04-10 18:38 | IPN ---
DATE: 04/10/2019 Mrs. Hong is seen in intensive care unit on her bedside. She remains on continuous renal replacement therapy (CRRT) due to hypotension requiring pressors and oliguric acute renal failure. Nursing staff report that she does have slightly increased urine output today. Her CRRT has been working very well. Unfortunately, patient has significant anoxic encephalopathy due to recurrent cardiac arrest and underwent another CT scan of head yesterday which showed multiple infarctions and significant ischemia of her brain suggestive of advanced anoxic encephalopathy. She has been seen by neurology this morning and is felt to be brain . Family has been counseled by critical care service about withdrawal from ventilator and possible organ donation. Currently, preparations for ventilator weaning are in progress. PHYSICAL EXAMINATION: Temperature 98.6 degrees Fahrenheit, heart rate 76 per minute and respiratory rate 16 per minute on the ventilator. Blood pressure 109/60 mmHg and oxygen saturation 99%. Endotracheal tube is in position. Neck veins are difficult to be assessed. Pupils are dilated and nonreactive. Heart sounds are regular and lungs have good bilateral air entry. Abdomen soft and bowel sounds present. Extremities without any cyanosis or clubbing. Neurologically, she is completely unresponsive. Today's labs show WBC count 18.9, hemoglobin 9.9 and hematocrit 29.0. Blood gas this morning showed a pH of 7.38, pCO2 45 and pO2 107. Bicarbonate 25.5. Sodium 138, potassium 4.1, CO2 26, BUN 19 and creatinine 1.58. Glucose 143 and calcium 7.3. Albumin is 2.2. Her AST is down to 97, ALT 54 and alkaline phosphatase 58. PROBLEMS: 1. Oliguric acute renal failure related to recurrent and prolonged cardiac arrest. Patient does make some urine, but remains on CRRT. We will continue the supportive care until she is taken off the ventilator and until she is ready for going to operating room (OR) for organ donation. 2. Cardiac arrest with anoxic encephalopathy. Unfortunately, she had recurrent cardiac arrest with significant brain anoxia. She is considered brain by the CT scan findings and neurological exam. She has been seen by neurologist this morning. Plans for withdrawal from ventilator and pressors are in place waiting for the organ harvesting team. At this point we will continue with CRRT until she is taken off the ventilator. Twenty-two minutes of critical care time spent on her bedside.
--- NOTE | 2019-04-10 21:51 | IPN ---
DATE: 04/09/2019 Mrs. Hong is seen this morning in her ICU bed. She was admitted yesterday following cardiac arrest. She remains on the ventilator and unresponsive. Unfortunately, she had a prolonged anoxia. Following resuscitation, she had recurrent hypotension even after admission when she was given antibiotics. This morning her blood pressure was in the 130s and then she received a dose of vancomycin. Now on my arrival her blood pressure is down in 60s to 80s. She is being given a fluid bolus. Nursing staff reports that she does have slightly improved urine output. However, she has been on continuous renal replacement therapy (CRRT) since yesterday. No fluid is being removed at present due to hypotension. CT scan of her brain did show clouding of the sulci suggestive of edema and no hemorrhages. She is felt to have anoxic encephalopathy. She also had significant acidosis with lactic acidosis on admission and continuous renal replacement therapy (CRRT) was started immediately. This morning temperature is 98 degrees Fahrenheit, heart rate 90s and respiratory rate 20s on the ventilator. Blood pressure right now down to 80/50 mmHg and oxygen saturation is 97% on 40% FiO2 on the ventilator. Her head is atraumatic. There is mild facial edema. Endotracheal tube and nasogastric tube in place. Neck veins are difficult to be assessed. Pupils are dilated and unresponsive to light at present. Heart sounds are regular and lungs have good bilateral air entry. Abdomen is soft, somewhat protuberant and nontender. Extremities: Without any cyanosis or clubbing. Neurologically, she is completely unresponsive. Today's labs show sodium 140, potassium 4.4, CO2 23, BUN 21 and creatinine 1.55. Glucose 145 and lactic acid down to 3.1. Calcium 8.0. AST 258, ALT 81 and alkaline phosphatase 69. Total protein 5.5 and albumin 2.7. The troponin level is 1.97 now. Blood gas this morning showed a pH of 7.43, pCO2 34, pO2 167 and bicarb 23. PROBLEMS: 1. Acute renal failure secondary to cardiac arrest and prolonged hypotension. She has mild urine output but, remains on continuous renal replacement therapy (CRRT) since yesterday. We will continue with the same. 2. Hypotension. The patient is felt to have anaphylactic shock. She has required pressors once again after receiving antibiotic. At present, no fluid will be removed with continuous renal replacement therapy (CRRT). Is back on pressors at the time of this dictation. 3. Lactic acidosis. Her acidosis has improved significantly with the continuous renal replacement therapy (CRRT) . We will continue with the same. Unfortunately, she is hypotensive again and hypoperfusion is most likely cause of her lactic acidosis. 2. Anoxic encephalopathy. The patient seems to have significant damage to her brain due to prolonged cardiac arrest and CT scan of her head done on admission did show some edema. A repeat CT scan is being considered. Discussed the patient's care on the bedside with the intensive care service. I also reviewed the care plan with the nursing staff and they renewed the continuous renal replacement therapy (CRRT) orders for next 24 hours. 36 minutes of critical care time spent on the bedside. No procedures were performed during this time.
[2019-04-10] MEDS ORDERED: methylPREDNISolone INJ 40 MG/1 ML VIAL (J2920) IV SCH (23:00)
[2019-04-11] MEDS ORDERED: raNITIdine SYRUP 150 MG/10 ML UDC NG SCH (09:00)
== END 2019-04-10 11:19 | disposition expired | DRG 181 ==
LOC: EDBD 19:02 → M ED 19:02 → M ED INP 20:42 → M ICU 22:40 → UNDODISIN 04-10 12:15
PROVIDERS: ADMIT Internal Medicine Pulmonary Disease; ATTEND Internal Medicine Pulmonary Disease
PROC: 02HV33Z Insertion of Infusion Device into Superior Vena Cava, Percutaneous Approach (ICD-10-PCS; principal; 2019-04-07)
PROC: 5A1945Z Respiratory Ventilation, 24-96 Consecutive Hours (ICD-10-PCS; 2019-04-07)
PROC: 04HY32Z Insertion of Monitoring Device into Lower Artery, Percutaneous Approach (ICD-10-PCS; 2019-04-08)
PROC: 06HN33Z Insertion of Infusion Device into Left Femoral Vein, Percutaneous Approach (ICD-10-PCS; 2019-04-08)
DX: I46.9 Cardiac arrest, cause unspecified (principal); K72.00 Acute and subacute hepatic failure without coma; I63.9 Cerebral infarction, unspecified; N17.0 Acute kidney failure with tubular necrosis; G93.1 Anoxic brain damage, not elsewhere classified; J18.9 Pneumonia, unspecified organism; S27.0XXA Traumatic pneumothorax, initial encounter; N17.9 Acute kidney failure, unspecified; E87.4 Mixed disorder of acid-base balance; K86.81 Exocrine pancreatic insufficiency; S22.43XA Multiple fractures of ribs, bilateral, initial encounter for closed fracture; I51.81 Takotsubo syndrome; T36.8X5A Adverse effect of other systemic antibiotics, initial encounter; G93.6 Cerebral edema; E27.40 Unspecified adrenocortical insufficiency; T88.6XXA Anaphylactic reaction due to adverse effect of correct drug or medicament properly administered, initial encounter; I10 Essential (primary) hypertension; F32.9 Major depressive disorder, single episode, unspecified; F41.9 Anxiety disorder, unspecified; G47.33 Obstructive sleep apnea (adult) (pediatric); J32.9 Chronic sinusitis, unspecified; J45.909 Unspecified asthma, uncomplicated; M54.5 Low back pain; Z90.49 Acquired absence of other specified parts of digestive tract; Z79.899 Other long term (current) drug therapy; Z88.1 Allergy status to other antibiotic agents; Z88.0 Allergy status to penicillin; Z88.2 Allergy status to sulfonamides; Z88.8 Allergy status to other drugs, medicaments and biological substances; Z87.891 Personal history of nicotine dependence; X58.XXXA Exposure to other specified factors, initial encounter; Y92.009 Unspecified place in unspecified non-institutional (private) residence as the place of occurrence of the external cause

== ENCOUNTER → 2019-04-07 | Outpatient (REF) | payer OTHER | LOC: M SFHCPLAZ 13:15 | PROVIDERS: ATTEND Physician Assistant Medical | DX: J18.9 Pneumonia, unspecified organism (principal) ==

== ENCOUNTER → 2019-04-10 | Outpatient (REF) | payer BC, OTHER ==
[2019-04-10] VITALS (8 sets, daily range): BP systolic 79–112; BP diastolic 45–62
[~2019-04-10] VITALS: Ht 160 cm; Wt 80.2 kg
[~2019-04-10] MED LIST changes: +ASPI81TA26 PO; +CALCIUM GLUCONATE 1,000 MG in D5W MINI-BAG PLUS 100 ML IV ONE; +CARV6.25 PO; +D5W IV SCH; +DEXTROSE 50% 50 ML SYRINGE IV ONE; +DEXTROSE 50% 50 ML SYRINGE IV PRN; +GLUCAGON FOR INJ 1 MG VIAL (J1610) SC PRN; +GLUCOSE 4 GM CHEW TABLET PO PRN; +HumaLOG INSULIN (NovoLOG) PER UNIT SC STA; +HumuLIN R (REGULAR) INSULIN (NovoLIN R) **100U/ML** PER UNIT IV ONE; +INSULIN HUMAN REGULAR 100 UNITS in NS 99 ML IV SCH; +INSULIN IV RATE CHANGE DOCUMENTATION ML/HR XX SCH; +IPRATROPIUM 0.5MG/ALBUTEROL 2.5MG INH SOL UD 3ML (DUONEB)(J7620) NEB ONE; +KCL 20MEQ IN 100ML SWI (KRUN) 20 MEQ in IV 1 EA IV ONE; +LEVOTHYROXINE 100 MCG (0.1MG) VIAL IV ONE; +LEVOTHYROXINE 100 MCG (0.1MG) VIAL IV SCH; +LORA0.5T5 PO; +MIDAZOLAM INJ 2 MG/2 ML VIAL (J2250) As Ordered ONE; +MOXI1TAB PO; +NOREPINEPHRINE BITARTRATE 16 MG in D5W 484 ML IV SCH; +PHENYLephrine HCL 500 MCG/5 ML (100MCG/ML) SYRINGE (J2370) As Ordered ONE; +POTASSIUM CHLORIDE IV SCH; +SODIUM PHOSPHATE INJ 15 MMOL in D5W 250 ML IV ONE; -VANCOMYCIN HCL 1,000 MG, VIAL MATE ADAPTER 1 EACH in D5W 250 ML IV ONE; -VANCOMYCIN HCL 500 MG in D5W MINI-BAG PLUS 100 ML IV ONE; +VECURONIUM BROMIDE 10 MG VIAL As Ordered ONE; +fentaNYL 100 MCG/2 ML INJECTION (J3010) As Ordered ONE; +methylPREDNISolone INJ 125 MG/2 ML VIAL (J2930) IV ONE
[2019-04-10] MEDS: LR 1,000 ML IV SCH (19:05)
[2019-04-10 19:07] LABS: IONIZED CALCIUM 4.3 MG/DL (4.5-5.3)
[2019-04-10 19:13] LABS: HEMOGLOBIN 8.8 g/dl (12.0-15.5); MEAN CORPUSCULAR HEMOGLOBIN 30.3 pg (27.0-33.0); MEAN CORPUSCULAR HGB CONC 32.6 g/dl (32.0-36.5); MEAN CORPUSCULAR VOLUME 93.1 fl (80.0-96.0); PLATELET COUNT, AUTOMATED 111 10^3/uL (150-450); WHITE BLOOD COUNT 13.2 10^3/uL (4.0-10.0)
[2019-04-10 19:23] LABS: INR 1.05; PROTHROMBIN TIME 13.4 SECONDS (11.8-14.0)
[2019-04-10 19:24] LABS: PARTIAL THROMBOPLASTIN TIME 33.7 SECONDS (25.0-38.4)
[2019-04-10 19:32] LABS: HEMOGLOBIN A1c 5.5 %
[2019-04-10 19:48] LABS: ALT/SGPT 46 U/L (12-78); AMYLASE 57 U/L (25-115); BILIRUBIN,DIRECT < 0.1 MG/DL (0.0-0.2); BILIRUBIN,TOTAL 0.3 MG/DL (0.2-1.0); BLOOD UREA NITROGEN 17 MG/DL (7-18); CALCIUM LEVEL 7.1 MG/DL (8.5-10.1); CARBON DIOXIDE LEVEL 30 MEQ/L (21-32); CHLORIDE LEVEL 107 MEQ/L (98-107); CK-MB VALUE MASS 6.6 NG/ML (<3.6); CPK CREATINE PHOSPHOKINASE 467 U/L (26-192); CREATININE FOR GFR 1.53 MG/DL (0.55-1.30); GLOMERULAR FILTRATION RATE 37.5 (>51); GLUCOSE, FASTING 158 MG/DL (70-100); LIPASE 175 U/L (73-393); MAGNESIUM LEVEL 2.4 MG/DL (1.8-2.4); MB/CK RELATIVE INDEX 1.41 (< OR =4); PHOSPHORUS LEVEL 3.1 MG/DL (2.5-4.9); POTASSIUM SERUM 4.1 MEQ/L (3.5-5.1); SODIUM LEVEL 140 MEQ/L (136-145); TOTAL PROTEIN 4.4 GM/DL (6.4-8.2)
[2019-04-10 20:12] LABS: ABG BASE EXCESS 2.8 (-2.0-2.0); ABG HCO3 27.5 MEQ/L (22.0-26.0); ABG O2 SATURATION 99.3 % (95.0-99.0); ABG PARTIAL PRESSURE CO2 42.6 mmHg (35.0-45.0); ABG PARTIAL PRESSURE O2 380.2 mmHg (75.0-100.0); ABG TOTAL CO2 28.8 MEQ/L (22.0-29.0); ABG pH (ARTERIAL) 7.427 UNITS (7.350-7.450)
--- NOTE | 2019-04-10 20:30 | REPVR ---
PROCEDURE INFORMATION: Exam: XR Chest, 1 View Exam date and time: 04/10/2019 7:25 PM Age: 53 years old Clinical indication: Evaluation for organ donation. TECHNIQUE: Imaging protocol: XR of the chest Views: 1 view. COMPARISON: CR PORTABLE CHEST X-RAY 04/10/2019 7:[address] Chest without contrast 04/07/2019 10:29:05 PM FINDINGS: Tubes, catheters and devices: An endotracheal tube is seen overlying the trachea, and the tip terminates 4.2 cm above the brayan. There is a right internal jugular central venous line in the superior vena cava. There is an enteric tube in the stomach. Lungs: There is a left basilar airspace opacity, which may represent atelectasis or consolidation. Pleural space: The small bilateral pneumothoraces that can be seen in the prior CT chest on 04/07/2019 are not visualized in this chest x-ray. Heart/Mediastinum: Unremarkable. No cardiomegaly. Bones/joints: There are multiple acute bilateral rib fractures, which are better visualized in the CT chest on 04/07/2019. IMPRESSION: Left basilar airspace opacity, which may represent atelectasis or consolidation (e.g.: aspiration pneumonia, pneumonia, or a pulmonary contusion). Electronically signed by: Quentin You On 04/10/2019 20:32:35 PM
[2019-04-10] MEDS: VANCOMYCIN HCL 750 MG, VIAL MATE ADAPTER 1 EACH in D5W 250 ML IV SCH (21:41)
[2019-04-10] MEDS: CALCIUM GLUCONATE 1,000 MG in D5W MINI-BAG PLUS 100 ML IV SCH (23:08)
[2019-04-10 23:12] LABS: ABG BASE EXCESS 3.8 (-2.0-2.0); ABG HCO3 27.3 MEQ/L (22.0-26.0); ABG O2 SATURATION 98.8 % (95.0-99.0); ABG PARTIAL PRESSURE CO2 36.7 mmHg (35.0-45.0); ABG PARTIAL PRESSURE O2 145.2 mmHg (75.0-100.0); ABG STANDARD HCO3 27.9 MEQ/L (22.0-26.0); ABG TOTAL CO2 28.4 MEQ/L (22.0-29.0); ABG pH (ARTERIAL) 7.489 UNITS (7.350-7.450)
[2019-04-10] MEDS: LEVOTHYROXINE SODIUM IV SCH (23:57)
[2019-04-10] MEDS: D5W IV SCH (23:57)
[2019-04-11] VITALS (37 sets, daily range): BP systolic 82–134; BP diastolic 41–73
[2019-04-11] MEDS: CALCIUM GLUCONATE 1,000 MG in D5W MINI-BAG PLUS 100 ML IV SCH ×2
[2019-04-11 00:14] LABS: ABG BASE EXCESS 0.2 (-2.0-2.0); ABG HCO3 24.3 MEQ/L (22.0-26.0); ABG O2 SATURATION 99.5 % (95.0-99.0); ABG PARTIAL PRESSURE CO2 37.3 mmHg (35.0-45.0); ABG PARTIAL PRESSURE O2 377.6 mmHg (75.0-100.0); ABG STANDARD HCO3 24.7 MEQ/L (22.0-26.0); ABG TOTAL CO2 25.5 MEQ/L (22.0-29.0); ABG pH (ARTERIAL) 7.432 UNITS (7.350-7.450)
[2019-04-11] MEDS: ALBUTEROL SULFATE 2.5 MG/0.5 ML INH NEB SOLN NEB SCH ×6 (04:00→23:33)
[2019-04-11 04:33] LABS: IONIZED CALCIUM 4.6 MG/DL (4.5-5.3)
[2019-04-11 04:37] LABS: BASO % 0.1 % (0.0-1.0); HEMATOCRIT 26.9 % (36.0-47.0); HEMOGLOBIN 8.9 g/dl (12.0-15.5); LYMPH # 0.7 10^3/uL (1.5-5.0); LYMPH % 4.7 % (24.0-44.0); MEAN CORPUSCULAR HEMOGLOBIN 31.1 pg (27.0-33.0); MEAN CORPUSCULAR HGB CONC 33.1 g/dl (32.0-36.5); MEAN CORPUSCULAR VOLUME 94.1 fl (80.0-96.0); MONO # 0.7 10^3/uL (0.0-0.8); MONO % 4.2 % (0.0-5.0); NEUTROPHILS # 13.9 10^3/uL (1.5-8.5); NEUTROPHILS % 88.8 % (36.0-66.0); PLATELET COUNT, AUTOMATED 121 10^3/uL (150-450); RED BLOOD COUNT 2.86 10^6/uL (4.00-5.40); WHITE BLOOD COUNT 15.7 10^3/uL (4.0-10.0)
[2019-04-11 04:47] LABS: INR 0.97; PROTHROMBIN TIME 12.6 SECONDS (11.8-14.0)
[2019-04-11 04:48] LABS: PARTIAL THROMBOPLASTIN TIME 34.6 SECONDS (25.0-38.4)
[2019-04-11 05:04] LABS: ABG BASE EXCESS 2.1 (-2.0-2.0); ABG HCO3 27.8 MEQ/L (22.0-26.0); ABG O2 SATURATION 96.6 % (95.0-99.0); ABG PARTIAL PRESSURE CO2 49.2 mmHg (35.0-45.0); ABG PARTIAL PRESSURE O2 87.6 mmHg (75.0-100.0); ABG STANDARD HCO3 26.3 MEQ/L (22.0-26.0); ABG TOTAL CO2 29.3 MEQ/L (22.0-29.0)
[2019-04-11 05:11] LABS: ALBUMIN 2.1 GM/DL (3.2-5.2); BILIRUBIN,TOTAL 0.3 MG/DL (0.2-1.0); CALCIUM LEVEL 7.4 MG/DL (8.5-10.1); CREATININE FOR GFR 1.48 MG/DL (0.55-1.30); MAGNESIUM LEVEL 2.4 MG/DL (1.8-2.4); PHOSPHORUS LEVEL 2.4 MG/DL (2.5-4.9); POTASSIUM SERUM 4.2 MEQ/L (3.5-5.1); TOTAL PROTEIN 4.3 GM/DL (6.4-8.2)
--- NOTE | 2019-04-11 06:54 | REPVR ---
PROCEDURE INFORMATION: Exam: CT Chest Without Contrast Exam date and time: 04/11/2019 5:36 AM Age: 53 years old Clinical indication: Condition or disease; Other: Organ donation; Additional info: Evaluation for organ donation TECHNIQUE: Imaging protocol: Computed tomography of the chest without contrast. 3D rendering: MIP and/or 3D reconstructed images were created by the technologist. Radiation optimization: All CT scans at this facility use at least one of these dose optimization techniques: automated exposure control; mA and/or kV adjustment per patient size (includes targeted exams where dose is matched to clinical indication); or iterative reconstruction. COMPARISON: CT Chest without contrast 04/07/2019 10:29 PM FINDINGS: Limitations: Examination is limited by motion artifact. Tubes, catheters and devices: NG tube with the tip in the stomach. ET tube with the tip 2 cm above the brayan. Right central venous catheter with the tip in the SVC. Tracheobronchial tree: Unremarkable. Lungs: Dense consolidation in the left lower lobe. Mild patchy consolidations in the right middle lobe and right lower lobe. Calcified granuloma in the left lower lobe. Pleural space: Mild bilateral pleural effusions. No pneumothorax. Heart: Unremarkable. No cardiomegaly. No pericardial effusion. Aorta: Unremarkable. No aortic aneurysm. Lymph nodes: Unremarkable. No enlarged lymph nodes. Intraperitoneal space: Mild fluid adjacent to the lower pole of the spleen. Bones/joints: Acute fractures of the right 3rd, 4th, 5th, 6th, 7th ribs anteriorly. Acute fractures of the left 2nd, 3rd, 4th, 5th, 6th, 7th ribs anteriorly. Mild degenerative spine. Acute nondisplaced fracture of the sternal body. Soft tissues: Edema in the subcutaneous tissue. IMPRESSION: 1. Lung consolidations as described. Consistent with pneumonia. Significantly increased from prior. 2. Mild bilateral pleural effusions. New from prior. 3. Mild fluid adjacent to the lower pole of the spleen. New from prior. 4. Acute bilateral rib fractures. No change from prior. 5. Tubes and catheters as described. Electronically signed by: Jostin Macias On 04/11/2019 06:55:22 AM
[2019-04-11] MEDS: D5W IV SCH ×2 (08:40→21:00)
[2019-04-11] MEDS: LEVOTHYROXINE SODIUM IV SCH ×2 (08:40→21:00)
[2019-04-11 08:41] LABS: ABG HCO3 27.2 MEQ/L (22.0-26.0); ABG O2 SATURATION 98.3 % (95.0-99.0); ABG PARTIAL PRESSURE CO2 39.8 mmHg (35.0-45.0); ABG PARTIAL PRESSURE O2 109.2 mmHg (75.0-100.0); ABG STANDARD HCO3 27.2 MEQ/L (22.0-26.0); ABG TOTAL CO2 28.4 MEQ/L (22.0-29.0); ABG pH (ARTERIAL) 7.452 UNITS (7.350-7.450)
--- NOTE | 2019-04-11 09:14 | CR ---
DATE OF CONSULTATION: 04/11/2019 REFERRING PROVIDER: Dr. Laura Quintanilla REASON CONSULTATION: Evaluation for brain . Jodi Hong is a 53-year-old female who presented to [facility] after developing cardiac arrest in her home. The patient had received Avelox at home and complained of shortness of breath. The patient became unresponsive. The patient's started CPR. EMS arrived to within approximately 10 minutes. They again resumed CPR and there was return of spontaneous circulation. The patient arrived at the emergency department, she had two more episodes of pulselessness requiring further resuscitation. Initial head CT was significantly abnormal with crowding of the sulci in the parietal region of the brain suggesting diffuse edema secondary from hypoxic injury. The patient 2 days later subsequently had her second head CT which shows massive cerebral edema, loss of perry-white differentiation throughout the cortical ribbon as well as left hemispheric strokes involving the frontal parietal region as well as the right frontal region, the base of ganglia, right greater than left bilaterally as well. I was asked to come and evaluate the patient for brain protocol as the patient has lost all brain stem reflexes. Initially in the emergency department she had sluggishly pupillary reflexes at times she was able to breathe over the vent with some agonal breathing, but all of that has subsided. REVIEW OF SYSTEMS: Unobtainable due the patient's current state. PAST MEDICAL HISTORY: Includes: obstructive sleep apnea, allergic rhinitis, chronic sinusitis, gastroesophageal reflux disease, hypertension, anxiety. PAST SURGICAL HISTORY: Unobtainable. SOCIAL HISTORY: Unobtainable as per records there is no evidence of smoking, alcohol use or illicit drug use. ALLERGIES: Multiple allergies to ANTIBIOTICS, please see chart. PHYSICAL EXAMINATION: Blood pressure is 136/77, respiratory rate is 14 on a ventilator, pulse rate is 86, temperature is 98.4 degrees Fahrenheit, height is 63 inches, weight is 76 kg. The patient is hooked up to the ventilator laying in bed, eyes are closed. The patient was not on any sedation for over 24 hours. The patient is warm to 37 degrees Celsius for over 24 hours. Pupils are 3 mm, round, fixed, nonreactive. Corneal reflexes are absent. Gag reflexes are absent. Deep suctioning provoking gag reflex is absent. Dolls Eyes are testing is negative.Cold Calorics are negative. The patient failed apnea testing. There is no movement of all four limbs to noxious stimuli. Babinski signs are mute. Tone is normal. ASSESSMENT: The patient meets criteria presently for brain . The patient successfully underwent hypothermia protocol and rewarming protocol post cardiac arrest and has been at 37 degrees Celsius for over [address] Quintanilla and myself had a family meeting both the patient's , son and stepdaughter are understanding of the current situation. At this point in time EEG is not necessary given clinical examination. [facility]
[2019-04-11] MEDS: VANCOMYCIN HCL 750 MG, VIAL MATE ADAPTER 1 EACH in D5W 250 ML IV SCH ×2 (09:56→21:10)
[2019-04-11 10:30] LABS: IONIZED CALCIUM 4.3 MG/DL (4.5-5.3)
[2019-04-11 10:48] LABS: HEMATOCRIT 25.4 % (36.0-47.0); HEMOGLOBIN 8.2 g/dl (12.0-15.5); MEAN CORPUSCULAR HEMOGLOBIN 30.6 pg (27.0-33.0); MEAN CORPUSCULAR HGB CONC 32.3 g/dl (32.0-36.5); MEAN CORPUSCULAR VOLUME 94.8 fl (80.0-96.0); PLATELET COUNT, AUTOMATED 108 10^3/uL (150-450); RED BLOOD COUNT 2.68 10^6/uL (4.00-5.40); WHITE BLOOD COUNT 12.1 10^3/uL (4.0-10.0)
[2019-04-11 11:05] LABS: ALBUMIN 1.9 GM/DL (3.2-5.2); BILIRUBIN,DIRECT 0.1 MG/DL (0.0-0.2); BILIRUBIN,TOTAL 0.3 MG/DL (0.2-1.0)
[2019-04-11 11:06] LABS: ALBUMIN 1.9 GM/DL (3.2-5.2); BILIRUBIN,TOTAL 0.2 MG/DL (0.2-1.0); CALCIUM LEVEL 7.5 MG/DL (8.5-10.1); CREATININE FOR GFR 1.54 MG/DL (0.55-1.30); GLOMERULAR FILTRATION RATE 37.2 (>51); MAGNESIUM LEVEL 2.3 MG/DL (1.8-2.4); POTASSIUM SERUM 3.9 MEQ/L (3.5-5.1); TOTAL PROTEIN 4.4 GM/DL (6.4-8.2)
[2019-04-11 11:17] LABS: MB/CK RELATIVE INDEX 1.36 (< OR =4); TROPONIN I 0.18 NG/ML (< 0.10)
[2019-04-11 11:18] LABS: INR 0.95; PROTHROMBIN TIME 12.4 SECONDS (11.8-14.0)
[2019-04-11 11:19] LABS: PARTIAL THROMBOPLASTIN TIME 37.3 SECONDS (25.0-38.4)
[2019-04-11 12:25] LABS: ABG BASE EXCESS 1.8 (-2.0-2.0); ABG O2 SATURATION 99.6 % (95.0-99.0); ABG PARTIAL PRESSURE CO2 52.8 mmHg (35.0-45.0); ABG PARTIAL PRESSURE O2 223.4 mmHg (75.0-100.0); ABG STANDARD HCO3 26.1 MEQ/L (22.0-26.0); ABG TOTAL CO2 29.7 MEQ/L (22.0-29.0); ABG pH (ARTERIAL) 7.343 UNITS (7.350-7.450)
[2019-04-11 12:32] LABS: BILIRUBIN,DIRECT 0.1 MG/DL (0.0-0.2)
--- NOTE | 2019-04-11 13:16 | ECHO ---
DATE OF STUDY: 04/11/2019 REFERRING PHYSICIAN: Laura Quintanilla MD INDICATION: Organ donor transplant. HEIGHT: 160 cm. WEIGHT: 80.2 kg. 2D MEASUREMENTS: Ventricular septum 0.81 cm Posterior wall 0.93 cm Left ventricle diastole 4.5 cm Aortic root 2.6 cm Left atrium 3.4 cm Left atrial volume index 17.5 Aortic annulus 2.0 cm DOPPLER MEASUREMENTS: Aortic valve velocity 145 cm/s LVOT velocity 96.3 cm/s LVOT VTI 21.4 cm No aortic regurgitation. No mitral regurgitation. Mitral deceleration time 183 ms Mitral E velocity 71.6 cm/s Mitral A velocity 61.7 cm/s E/A ratio 1.2 Trace tricuspid regurgitation within normal limits Estimated right ventricle systolic pressure 21-26 mmHg assuming a pressure 5-10 mmHg Very mild pulmonic regurgitation MITRAL ANNULAR TISSUE DOPPLER: E prime lateral 9.36 cm/s E prime septal 7.02 cm/s DESCRIPTION: Rhythm was sinus. Image quality was good. This was a 2D, M mode, color flow Doppler and pulse wave Doppler examination and included mitral annular tissue Doppler. The patient left ventricle was normal in internal dimensions and wall thickness. Normal regional LV wall motion and wall thickening. Normal LV systolic function. LVEF 60% by visual estimate. Normal LV diastolic function. Right ventricle is normal in size and systolic function. Estimated right ventricle systolic pressure was in the normal range. The atria were normal in size. No pericardial effusion. Aortic valve was three-cuspid and was structurally and functionally normal. Mitral leaflets were structurally and functionally normal. No aortic or mitral regurgitation. Tricuspid and pulmonic valves were structurally and functional. Trace tricuspid regurgitation and very mild pulmonic regurgitation, within normal limits. No pericardial effusion. CONCLUSIONS: 1. Normal echocardiogram Doppler.
[2019-04-11] MEDS: methylPREDNISolone INJ 125 MG/2 ML VIAL (J2930) IV SCH ×2 (13:22→23:23)
[2019-04-11] MEDS: AZTREONAM 2 GM in D5W MINI-BAG PLUS 50 ML IV SCH ×2 (13:22→20:30)
[2019-04-11 13:25] LABS: PHOSPHORUS LEVEL 3.4 MG/DL (2.5-4.9)
--- NOTE | 2019-04-11 13:43 | CCN ---
DATE: 04/11/2019 Yesterday, the patient met the brain criteria and had two-physician confirmation with the apnea test confirming brain . She was declared at 11:19 a.m. on 04/10/2019. The patient's and family were contacted by the organ donor network, the [facility], and the had consented for organ donation. The patient was, therefore, switched to organ donor status and has been kept in the intensive care unit (ICU). Overnight, she was continued on continuous venovenous hemodialysis (CVVHD) with no fluid removal. She had been continued on Levophed at low doses, anywhere from 1-3 mcg/min. She was started on maintenance fluids, and she was also started on the Synthroid protocol as per the organ donor team. The patient had been changed from volume control settings on the vent to pressure control. The patient also had a recruitment maneuver performed on the ventilator which she did well with. Later on in the evening, however, the patient had desaturated. Her chest x-ray had shown evidence of a new infiltrate on the left base. On the CT, she was noted to have a collapse of her left lower lobe. PHYSICAL EXAMINATION: Temperature 97.3, pulse 75, respirations 14, blood pressure 103/55, oxygen (O2) saturation 96% on 40% FIO2. Input 990, out 68 mL. General: The patient is intubated. She is not on sedation and is unresponsive. HEENT is normocephalic, atraumatic. Pupils are fixed and dilated and unresponsive. There is no corneal reflex bilaterally. Neck is supple. Trachea is midline. There is no palpable adenopathy. There is no cough or gag reflex. Cardiac: Regular rate and rhythm with few premature ventricular contractions (PVCs). Normal S1, S2. Unable to appreciate any murmurs. Pulmonary: Some faint wheeze and rhonchi noted and coarse ventilated breath sounds bilaterally. Abdomen is soft, nontender, nondistended. Extremities: There is no lower extremity edema bilaterally. Neurological examination: The patient has no cranial nerve reflexes. LABORATORIES: WBC 15.7, hemoglobin 8.9, platelets are 121. Chemistry: Sodium is 140, potassium is 4.2, chloride is 104, bicarbonate is 29, BUN 14, creatinine is 1.48, glucose is 198, AST and ALT trending down to 66 and 46, ionized calcium is 4.6, phosphorus 2.4. Arterial blood gas (ABG) this morning was pH 7.452, pCO2 of 39.8, pO2 of 109.2. INR was 0.97. IMAGING STUDIES: CT chest showed left lower lobe collapse versus consolidation. There is small effusion on the left side and a trace effusion on the right. There are a few patchy opacities in the right lower lobe more peripherally. There is no evidence of the previously-noted trace pneumothorax on the right side. There are rib fractures noted bilaterally. ASSESSMENT: Ms. oHng is a 53-year-old female with a history of asthma, obstructive sleep apnea (GÓMEZ), allergic rhinitis, chronic sinusitis, gastroesophageal reflux disease (GERD), hypertension, and anxiety, who had presented with an [id number] cardiac arrest. The patient was noted to have anoxic injury on her initial head CT, which on repeat head CT had continued to worsen with new areas of infarct, as well. Yesterday, the patient met criteria for brain protocol; and after a two-physician confirmation and confirmatory apnea testing, she was declared on 04/10/2019. The patient's and family consented for organ donation, and her status in the ICU was changed to the organ donor status. Neuro: The patient was declared brain yesterday at 11:19 a.m. Patient's next of kin consented to organ donation and her care was transferred to organ donor team. Cardiovascular: The patient presented as an [id number] cardiac arrest. The patient was suspected to have a possible anaphylactic reaction based on her previous history of anaphylaxis to multiple antibiotics and with her symptoms starting after the first dose of Avelox. Her initial echocardiogram showed significantly reduced ejection fraction (EF) and a possible Takotsubo cardiomyopathy. The patient also has had episodes of hypotension post arrest, some of which may have been in the setting of antibiotics administered in the hospital, although sepsis and septic shock were also possible. She has only required small doses of Levophed. Overnight, she was on only 1-3 mcg/min and this morning was weaned off of Levophed. Her blood pressures have remained soft, however, with mean arterial pressures (MAPs) anywhere from 60-65. She was started on maintenance fluid, as well as with the Synthroid protocol as per organ donor. The patient's MAPs continue to trend down, however, and so she did require reinitiation of Levophed although at a very low dose of only 1-2 mcg/min. - The patient has a repeat echo ordered to evaluate her cardiac function. Her troponins had trended down. - The patient was on Solu-Medrol 40 mg every 8h for her possible anaphylactic reaction, as well as for possible adrenal insufficiency. She was given one dose of Solu-Medrol yesterday evening and then not continued on it. Given her continued hypotension, would restart Solu-Medrol at 60 mg every 12 which was recommended by the organ donor physician. - The patient has a right internal jugular (vein) (IJ) triple lumen in place and a right femoral A line in place for blood pressure monitoring. Pulmonary: The patient has a history of asthma and episodes of bronchitis as an outpatient which she had been treated with a few episodes in the past few months. The patient was initially started on treatment for possible pneumonia with vancomycin and aztreonam. Her aztreonam was discontinued yesterday, and overnight she was noted to have a new left lower lobe infiltrate. On CT, it appears she has left lower lobe collapse which may be secondary to pneumonia, as well as mucus plugging. The patient did have a bronchoscopy performed for organ donation which showed some areas of mucus plugging and secretions in the lungs bilaterally. Some evidence of dried blood plugs, as well. She did have somewhat friable mucosa in the left lower lobe but no significant edema or any other lesions in the mucosa. She had bronchoalveolar lavage (BAL) sent in the right upper lobe, right middle lobe, right lower lobe, left upper lobe and left lower lobe. - Post bronchoscopy, the patient was changed back to the pressure control setting. She was placed on volume control for the bronchoscopy itself. On the pressure control, however, she was having low tidal volumes, as the patient was having elevated peak pressures with a normal plateau suggesting bronchospasm or mucus plugging. She had aggressive suctioning and lavage from the endotracheal tube with no significant mucus secretions and so was suspected to have more bronchospasm. She did also have some wheezing noted on examination, which she did not previously have. She was given a DuoNeb at once (STAT) treatment with some improvement in her peak pressures. The patient is also being restarted on her steroids, which will also help with any bronchospasm. - The patient has multiple drug allergies, including to PENICILLIN and KEFLEX with reported anaphylactic reaction. She also has a reaction to SULFA and DOXYCYCLINE and QUINOLONES. Therefore, her antibiotic choice is limited but can continue with aztreonam as she was previously on for gram-negative coverage which will be restarted, and she will be continued on the vancomycin. Her white count is trending down. - The patient was changed to volume control given her low tidal volumes on pressure control and desaturating. Will continue with volume control with lung protective strategy with tidal volumes of 380, respiratory rate of 14, a PEEP of 5 and will wean down FIO2 as tolerated. Renal: The patient had acute renal failure in the setting of a cardiac arrest and possible ATN. She was on CVVHD, and her acid base status had normalized. The patient was having some increased urine output, which has tapered off in the past 12 hours. Suspect some of this is due to her lower blood pressure and MAPs which she has had more recently. - patient is on CVVHD currently which will be discontinued as per the organ donor network. With the improvement in her MAP will continue to monitor to see if she has improvement in urine output and recovery of her kidney function. - Will continue monitoring electrolytes and replete as needed. Gastrointestinal (GI): The patient had transaminitis initially secondary to mild shock liver which has since trended down. She has an orogastric (OG) tube in place, which initially was having some bloody output and then improved and now has some increased bloody output. Her ranitidine was started for GI prophylaxis and changed to once a day. Can consider increasing to twice a day as per organ donor. She has a reported allergy to PROTON PUMP INHIBITORS. Heme: The patient has had slowly decreasing hemoglobin. She does not have any evidence of overt bleeding besides some of the occasional bloody secretions in her OG tube output. So suspect this is likely dilutional and due to her frequent blood draws and other interventions in the intensive care unit (ICU). Would continue monitor hemoglobin and hematocrit and transfuse for hemoglobin less than 7. Continue with heparin for deep venous thrombosis (DVT) prophylaxis. Gastrointestinal prophylaxis. Ranitidine. Deep venous thrombosis prophylax. Heparin. DISPOSITION: The patient is on organ donor management Total critical care time not including procedures approximately 45 minutes. [facility]
--- NOTE | 2019-04-11 14:09 | RO ---
DATE OF PROCEDURE: 04/11/2019 INDICATION: Organ donor suitability. PREPROCEDURE DIAGNOSIS: Brain . POSTPROCEDURE DIAGNOSIS: Brain . ATTENDING PHYSICIAN: Dr. Laura Quintanilla. PROCEDURE NOTE: The patient had a bedside bronchoscopy performed in the intensive care unit (ICU). The endotracheal tube adapter was placed for the bronchoscopy and the patient was changed to volume control settings with 100% FiO2 for the procedure. Respiratory therapist and ICU nurse was at the bedside. A two-patient identifier time-out was performed identifying the correct patient, site and procedure. Cetacaine spray was used to anesthetize the airway and provide lubrication through the endotracheal (ET) tube. The bedside pediatric bronchoscope was used. The patient's brayan was sharp. In the right lung, she had evidence of some thick yellow mucus secretions and some mucus plugs noted in the right upper lobe right middle lobe and right lower lobe with a few dried blood mucus plugs also. There was no endobronchial lesions and the airway mucosa and did not appear edematous and there were no mucosal lesions noted. In the left lung, there were also thick yellow mucus secretions and some mucus plugs noted as well with occasional dried blood mucus plugs suctioned. In the left lower lobe, the mucosa was mildly friable but there were no significant endobronchial lesions noted in the left lung or mucosal lesions. The patient had bronchoalveolar lavage performed in the right upper lobe anterior segment and the right middle lobe lateral segment and the right lower lobe superior segment. She had bronchoalveolar lavage (BAL) performed in the left upper lobe apical posterior segment and in the left lower lobe lateral basilar segment. The patient tolerated the procedure well with no hemodynamic disability. There was no blood loss noted with the procedure. [facility]
[2019-04-11] MEDS: LR 1,000 ML IV SCH (14:12)
[2019-04-11 15:37] LABS: ABG BASE EXCESS -0.5 (-2.0-2.0); ABG HCO3 27.3 MEQ/L (22.0-26.0); ABG O2 SATURATION 95.7 % (95.0-99.0); ABG PARTIAL PRESSURE O2 87.8 mmHg (75.0-100.0); ABG TOTAL CO2 29.3 MEQ/L (22.0-29.0); ABG pH (ARTERIAL) 7.255 UNITS (7.350-7.450)
[2019-04-11 16:34] LABS: IONIZED CALCIUM 4.4 MG/DL (4.5-5.3)
[2019-04-11 16:50] LABS: INR 0.91; PROTHROMBIN TIME 11.9 SECONDS (11.8-14.0)
[2019-04-11 16:51] LABS: PARTIAL THROMBOPLASTIN TIME 27.4 SECONDS (25.0-38.4)
[2019-04-11 17:00] LABS: ALBUMIN 2.1 GM/DL (3.2-5.2); ALT/SGPT 47 U/L (12-78); BILIRUBIN,DIRECT < 0.1 MG/DL (0.0-0.2); BILIRUBIN,TOTAL 0.2 MG/DL (0.2-1.0); BLOOD UREA NITROGEN 16 MG/DL (7-18); CALCIUM LEVEL 7.3 MG/DL (8.5-10.1); CARBON DIOXIDE LEVEL 27 MEQ/L (21-32); CHLORIDE LEVEL 102 MEQ/L (98-107); CREATININE FOR GFR 2.01 MG/DL (0.55-1.30); GLOMERULAR FILTRATION RATE 27.4 (>51); GLUCOSE, FASTING 266 MG/DL (70-100); MAGNESIUM LEVEL 2.4 MG/DL (1.8-2.4); POTASSIUM SERUM 4.2 MEQ/L (3.5-5.1); SODIUM LEVEL 137 MEQ/L (136-145); TOTAL PROTEIN 4.5 GM/DL (6.4-8.2)
[2019-04-11 17:26] LABS: ABG PARTIAL PRESSURE CO2 56.8 mmHg (35.0-45.0); ABG pH (ARTERIAL) 7.296 UNITS (7.350-7.450)
[2019-04-11 17:27] LABS: ABG BASE EXCESS 0.1 (-2.0-2.0); ABG PARTIAL PRESSURE O2 85.5 mmHg (75.0-100.0); ABG TOTAL CO2 28.8 MEQ/L (22.0-29.0)
[2019-04-11 17:29] LABS: ABG HCO3 27.1 MEQ/L (22.0-26.0)
[2019-04-11 17:30] LABS: ABG O2 SATURATION 96.1 % (95.0-99.0); ABG STANDARD HCO3 24.5 MEQ/L (22.0-26.0)
[2019-04-11 18:28] LABS: ABG BASE EXCESS 0.4 (-2.0-2.0); ABG HCO3 25.8 MEQ/L (22.0-26.0); ABG O2 SATURATION 98.3 % (95.0-99.0); ABG PARTIAL PRESSURE CO2 45.6 mmHg (35.0-45.0); ABG PARTIAL PRESSURE O2 117.9 mmHg (75.0-100.0); ABG STANDARD HCO3 24.8 MEQ/L (22.0-26.0); ABG TOTAL CO2 27.2 MEQ/L (22.0-29.0); ABG pH (ARTERIAL) 7.371 UNITS (7.350-7.450)
[2019-04-11 19:47] LABS: ABG BASE EXCESS -0.9 (-2.0-2.0); ABG HCO3 24.4 MEQ/L (22.0-26.0); ABG O2 SATURATION 98.7 % (95.0-99.0); ABG PARTIAL PRESSURE CO2 43.5 mmHg (35.0-45.0); ABG PARTIAL PRESSURE O2 146.1 mmHg (75.0-100.0); ABG STANDARD HCO3 23.7 MEQ/L (22.0-26.0); ABG TOTAL CO2 25.7 MEQ/L (22.0-29.0); ABG pH (ARTERIAL) 7.367 UNITS (7.350-7.450)
[2019-04-11 20:19] LABS: AMORPHOUS SEDIMENT SMALL (NEGATIVE); APPEARANCE, URINE CLOUDY (CLEAR); BACTERIA, URINE AUTO 2+ (NEGATIVE); BILIRUBIN, URINE AUTO NEGATIVE (NEGATIVE); BLOOD, URINE BLOOD 2+ (NEGATIVE); COLOR, URINE YELLOW (YELLOW); GLUCOSE, URINE (UA) AUTO 3+ mg/dL (NEGATIVE); GRANULAR CAST, URINE AUTO 8 /LPF; KETONE, URINE AUTO NEGATIVE (NEGATIVE); LEUKOCYTE ESTERASE, URINE AUTO NEGATIVE (NEGATIVE); MUCUS, URINE SMALL (NEGATIVE); NITRITE, URINE AUTO NEGATIVE (NEGATIVE); PROTEIN, URINE AUTO NEGATIVE (NEGATIVE); RBC, URINE AUTO 5 /HPF (0-3); SPECIFIC GRAVITY URINE AUTO 1.011 (1.002-1.035); SQUAMOUS EPITHELIAL CELL UR AU 0 /HPF (0-6); UROBILINOGEN, URINE AUTO 0.2 mg/dL (0.0-2.0); WBC, URINE AUTO 7 /HPF (0-3)
--- NOTE | 2019-04-11 20:50 | ECGEPIP ---
[facility] Test Date: 2019-04-11 Pat Name: WAQAS VINCENT Department: Room: [place] [id number] Gender: Female Helmet Binder: NADIR : 1965 Requested By: Finger Rogelio Hilton Order Number: [id number] Reading MD: Georgina Farr Measurements Intervals [place] Rate: 79 P: 42 MD: 160 QRS: -21 QRSD: 101 T: 220 QT: 460 QTc: 530 Interpretive Statements SINUS RHYTHM WITH OCCASIONAL VENTRICULAR PREMATURE COMPLEXES BORDERLINE LEFT AXIS DEVIATION ST DEVIATION AND MODERATE T-WAVE ABNORMALITY, CONSIDER ANTEROLATERAL ISCHEMIA ST DEVIATION AND MODERATE T-WAVE ABNORMALITY, CONSIDER INFERIOR ISCHEMIA EVOLVING T WAVE INVERSION SINCE 04/08/2019 Electronically Signed on 04-11-2019 20:49:59 EST by Georgina Farr
[2019-04-11 22:15] LABS: IONIZED CALCIUM 4.4 MG/DL (4.5-5.3)
[2019-04-11 22:19] LABS: HEMATOCRIT 26.1 % (36.0-47.0); HEMOGLOBIN 8.3 g/dl (12.0-15.5); MEAN CORPUSCULAR HEMOGLOBIN 30.3 pg (27.0-33.0); MEAN CORPUSCULAR HGB CONC 31.8 g/dl (32.0-36.5); MEAN CORPUSCULAR VOLUME 95.3 fl (80.0-96.0); PLATELET COUNT, AUTOMATED 120 10^3/uL (150-450); RED BLOOD COUNT 2.74 10^6/uL (4.00-5.40); WHITE BLOOD COUNT 16.2 10^3/uL (4.0-10.0)
[2019-04-11 22:29] LABS: INR 0.94; PROTHROMBIN TIME 12.3 SECONDS (11.8-14.0)
[2019-04-11 22:30] LABS: PARTIAL THROMBOPLASTIN TIME 27.8 SECONDS (25.0-38.4)
[2019-04-11 22:45] LABS: LYMPHOCYTES 7 % (16-44); MONOCYTES 2 % (0-5); NEUTROPHILS 87 % (28-66)
[2019-04-11 22:46] LABS: ANISOCYTOSIS 1+; HYPOCHROMASIA 1+
[2019-04-11 22:48] LABS: PLATELET ESTIMATE NORMAL (NORMAL)
[2019-04-11 22:57] LABS: ALBUMIN 2.1 GM/DL (3.2-5.2); BILIRUBIN,DIRECT 0.1 MG/DL (0.0-0.2); BILIRUBIN,TOTAL 0.1 MG/DL (0.2-1.0); CALCIUM LEVEL 7.6 MG/DL (8.5-10.1); CK-MB VALUE MASS 2.7 NG/ML (<3.6); CREATININE FOR GFR 2.27 MG/DL (0.55-1.30); GLOMERULAR FILTRATION RATE 23.8 (>51); MAGNESIUM LEVEL 2.3 MG/DL (1.8-2.4); MB/CK RELATIVE INDEX 1.47 (< OR =4); PHOSPHORUS LEVEL 3.5 MG/DL (2.5-4.9); TOTAL PROTEIN 4.4 GM/DL (6.4-8.2); TROPONIN I 0.16 NG/ML (< 0.10)
[2019-04-12] VITALS: BP_SYST 103; BP_SYST 109; BP_DIAS 57; BP_DIAS 58
[2019-04-12 01:00] VITALS: BP_SYST 109; BP_SYST 99; BP_DIAS 56
== END ==
LOC: M ICUDONOR 11:19 → M OROP 12:15 → M ICUDONOR 13:27 → M ICU 16:53 → EDSTATUS 04-11 13:08 → M ICUDONOR 04-11 17:13 → M OROP 04-12 06:20
PROVIDERS: ATTEND Internal Medicine Pulmonary Disease
DX: Z52.9 Donor of unspecified organ or tissue (principal)